=== PATIENT | female | born 1940 | race Caucasian/White ===

== ENCOUNTER 2018-12-03 23:24 | Inpatient (IN) | payer MEDICARE ==
--- NOTE | 2018-12-04 00:38 | ED ---
SOB HPI - General Chief Complaint: Shortness of Breath Stated Complaint: heart failure Time Seen by Provider: 12/03/18 23:28 Source: EMS Mode of arrival: EMS Limitations: no limitations - History of Present Illness Initial Comments: Patient is a 78-year-old female presenting for shortness of breath. Patient has a history of heart failure and states that for the last week or so, she has been having the shortness of breath. She denies any chest pain and states that she also have COPD. She denies any fevers or cough and does note that sure lower extremities have been swelling. She states that she is also had aortic valve repair a couple years ago but she was told that she would likely need a revision at some point because it was not operating as it should. She was seen at outside facility and transferred to our facility for further evaluation. - Related Data Home Medications Medication Instructions Recorded Confirmed Aspirin EC [Ecotrin Low Dose] 162 mg PO DAILY 12/03/18 12/03/18 Atorvastatin [Lipitor] 40 mg PO HS 12/03/18 12/03/18 Citalopram Hydrobromide [CeleXA] 40 mg PO DAILY 12/03/18 12/03/18 Ergocalciferol (Vitamin D2) 50,000 unit PO Q7D 12/03/18 12/03/18 [Vitamin D2] Ferrous Sulfate [Feosol] 325 mg PO DAILY 12/03/18 12/03/18 Furosemide [Lasix] 40 mg PO DAILY 12/03/18 12/03/18 Gabapentin [Neurontin] 300 mg PO TID 12/03/18 12/03/18 Multivitamins, Thera [Multivitamin 1 tab PO DAILY 12/03/18 12/03/18 (formulary)] Omeprazole [PriLOSEC] 20 mg PO DAILY 12/03/18 12/03/18 Ramipril [Altace] 5 mg PO DAILY 12/03/18 12/03/18 Ubidecarenone [Co Q-10] 100 mg PO DAILY 12/03/18 12/03/18 amLODIPine [Norvasc] 5 mg PO DAILY 12/03/18 12/03/18 Allergies Allergy/AdvReac Type Severity Reaction Status Date / Time No Known Allergies Allergy Verified 12/03/18 23:49 Review of Systems ROS Statement: Those systems with pertinent positive or pertinent negative responses have been documented in the HPI. Constitutional: Negative for chills, fatigue and fever. HENT: Negative for congestion. Respiratory: Negative for chest tightness, and wheezing. Negative for cough area positive for shortness of breath Cardiovascular: Negative for chest pain and palpitations. Gastrointestinal: Negative for abdominal pain. Negative for abdominal distention , diarrhea, nausea and vomiting. Genitourinary: Negative for dysuria. Musculoskeletal: Negative for back pain, neck pain and neck stiffness. Skin: Negative for color change. Neurological: Negative for dizziness, speech difficulty, weakness and light- headedness. Psychiatric/Behavioral: Negative for agitation and confusion. Negative for anxiety ROS Other: All systems not noted in ROS Statement are negative. Past Medical History Past Medical History: Coronary Artery Disease (CAD), Diabetes Mellitus, Hyperlipidemia, Hypertension, Renal Disease Additional Past Medical History / Comment(s): diabetic no meds for 6 years History of Any Multi-Drug Resistant Organisms: None Reported Past Surgical History: Bariatric Surgery, Coronary Bypass/CABG, Heart Catheterization With Stent Additional Past Surgical History / Comment(s): aortic valve replacement. Past Psychological History: No Psychological Hx Reported Smoking Status: Former smoker Past Alcohol Use History: None Reported Past Drug Use History: None Reported General Exam - General Exam Comments Initial Comments: Constitutional: Pt appears well-developed and well-nourished. No distress. Head: Normocephalic and atraumatic. Eyes: EOM are normal. Neck: Normal range of motion. Neck supple. Cardiovascular: Normal rate, regular rhythm, S1 normal, S2 normal and normal heart sounds. Exam reveals no gallop and no friction rub. No murmur heard. 1+ pitting edema bilaterally of lower extremities Pulmonary/Chest: Effort normal and breath sounds normal. No tachypnea and no bradypnea. No respiratory distress. Mild crackles at bilateral lung bases Abdominal: Soft. Bowel sounds are normal. Pt exhibits no shifting dullness, no distension, no pulsatile liver, no fluid wave, no abdominal bruit and no ascites. There is no rigidity, no rebound, no guarding, no tenderness at McBurney's point and negative Torrez's sign. There is no tenderness. Musculoskeletal: Normal range of motion. Neurological: Pt is alert and oriented to person, place, and time. No cranial nerve deficit. Skin: Skin is warm and dry. No rash noted. Pt is not diaphoretic. No erythema. No pallor. Psychiatric: Pt has a normal mood and affect. Pt behavior is normal. Thought content normal. Limitations: no limitations Course Vital Signs 12/03/18 12/04/18 23:28 00:01 Temperature 98.6 F Pulse Rate 98 92 Respiratory 18 16 Rate Blood Pressure 187/74 166/64 O2 Sat by Pulse 91 L 94 L Oximetry Medical Decision Making - Medical Decision Making Laboratory studies performed at outside facility showed WBC 8.8, RBC 3.6, hemoglobin 10.6, platelet 225, sodium 138, potassium 4.7, chloride 108, CO2 23, BUN 18, creatinine 1.4, GFR 37. From a cardiac standpoint, troponin was elevated 0.11 and BNP was elevated at 4169. D-dimer was also performed and noted to be elevated at 3.86. Patient was also given diuretics at the outside facility and therefore they were not given again here. Additionally, because a troponin was elevated at outside facility and d-dimer was also noted to be elevated, patient will be heparinized as pulmonary embolism cannot be completely excluded. However, it is still thought that this is a type II and STEMI secondary to supply demand mismatch. Additionally, no additional treatments and form of nitroglycerin or aspirin were given here as this was already given at the other facility.Explained all labs and diagnostic test results and that we will admit patient to hospital. Pt is agreeable to plan and case will be discussed with [facility] hospitalist in the morning. - EKG Data EKG Comments: EKG shows first-degree block, rate 91 bpm, IN interval 212, QRS 134, QTC 526. There are some mild ST depressions in aVL measuring approximately 1 mm Disposition Clinical Impression: NSTEMI (non-ST elevated myocardial infarction), Elevated brain natriuretic peptide (BNP) level Disposition: ADMITTED IP TO THIS HOSP Condition: Fair Referrals: Helen Roth DO [Primary Care Provider] - 1-2 days Decision to Admit Reason: Admit from EC Decision Date: 12/04/18 Decision Time: 00:45
[2018-12-04] MEDS ORDERED: NITROGLYCERIN SL TABS 0.4 MG TAB SUBLINGUAL PRN (00:47)
[2018-12-04 01:54] LABS: Mean Platelet Volume 8.6; Platelet Count 178 k/uL (150-450)
[2018-12-04] MEDS: HEPARIN SOD,PORK IN 0.45% NACL 25,000 UNIT in 0.45% NACL 1 250ML.BAG IV SCH (01:55)
[2018-12-04 06:19] LABS: Glucose,Whole Blood 274 mg/dL (75-99)
[2018-12-04 06:35] LABS: Basophils % (A) 0 %; Eosinophils % (A) 1 %; HCT 32.4 % (34.0-46.0); Hypochromasia Slight; Lymphocytes # (A) 0.4 k/uL (1.0-4.8); Lymphocytes % (A) 7 %; MCH 29.3 pg (25.0-35.0); MCHC 30.8 g/dL (31.0-37.0); MCV 95.2 fL (80.0-100.0); Mean Platelet Volume 8.5; Monocytes # (A) 0.2 k/uL (0-1.0); Monocytes % (A) 3 %; Neutrophils % (A) 89 %; Platelet Count 180 k/uL (150-450); RDW 13.6 % (11.5-15.5); WBC 5.6 k/uL (3.8-10.6)
[2018-12-04 07:14] LABS: Calcium 8.7 mg/dL (8.4-10.2)
[2018-12-04 07:22] LABS: Creatine Kinase MB 2.9 ng/mL (0.0-2.4)
[2018-12-04 07:29] LABS: Troponin I 0.235 ng/mL (0.000-0.034)
[2018-12-04] MEDS ORDERED: CARVEDILOL 6.25 MG TAB PO SCH ×2 (07:30→17:30)
[2018-12-04] MEDS ORDERED: FUROSEMIDE 10 MG/ML 4 ML VIAL IV SCH (09:00)
--- NOTE | 2018-12-04 09:13 | P.CRDCN ---
History of Present Illness Consult date: 12/04/18 Requesting physician: Tricia Segundo Consult reason: shortness of breath Chief complaint: Shortness of breath History of present illness: This is a 78-year-old female with history of hypertension, diabetes, hyperlipidemia, nicotine dependence, patient states she quit smoking in October of this year, history of aortic valve replacement with a bovine aortic valve approximately [address] [facility], she follows with Dr. Sarah cao as her primary doctor. Patient also states that she's had subclavian stenting in the past. She also states that she has a history of iron deficiency anemia for which she takes iron. She presents to my hospital with symptoms of a seven-day duration of progressively worsening shortness of breath, patient also states about that time she noticed lower extremity edema. She denies any chest discomfort. Laboratory data at [facility] been reviewed, d-dimer came back to be 3.8, white blood cell count 8.8, hemoglobin 10.6, platelet count 11.4 , sodium 138, potassium 4.7, BUN 18 and creatinine 1.4. Troponin 0.11, BNP level 4169. Patient was transferred to [facility] for further evaluation and treatment. Laboratory data on arrival here, white blood cell count 5.6, hemoglobin 10.0, platelet count 180. Sodium 139, potassium 5.0, BUN 21 and creatinine 1.3, glucose 273. Troponins here 0.31 and 0.23. Blood pressure on arrival here 187/74 with heart rate in the 90s, 91% on room air. EKG at [facility] showed a normal sinus rhythm with right bundle branch block pattern, nonspecific ST-T wave changes. EKG performed on arrival here showed normal sinus rhythm with first-degree AV block. Chest x-ray performed showed bilateral pleural effusions, she was given a 40 mg dose of IV Lasix. At the time of my examination this morning, patient still complains of feeling slightly short of breath, she states that she did put out a significant amount of urine and the swelling in her legs has improved a lot since her admission here. We will give the patient IV Lasix here and obtain an echocardiogram with Doppler study. Her Altace has currently been placed on hold because of abnormal renal function and potassium of 5.0. We'll resume her Lipitor, we will start the patient on a beta beatrice, to optimize blood pressure control. Past Medical History Past Medical History: Coronary Artery Disease (CAD), Diabetes Mellitus, Hyperlipidemia, Hypertension, Renal Disease Additional Past Medical History / Comment(s): diabetic, no meds for 6 MONTHS History of Any Multi-Drug Resistant Organisms: None Reported Past Surgical History: Bariatric Surgery, Coronary Bypass/CABG Additional Past Surgical History / Comment(s): aortic valve replacement LEFT CAROTID ENDARTECTOMY, BIARIATIC 2001 Past Anesthesia/Blood Transfusion Reactions: No Reported Reaction Past Psychological History: No Psychological Hx Reported Smoking Status: Former smoker Past Alcohol Use History: None Reported Past Drug Use History: None Reported - Past Family History Mother Family Medical History: Coronary Artery Disease (CAD) Father Family Medical History: Coronary Artery Disease (CAD) Additional Family Medical History / Comment(s): FATHER PASSED AT AGE 49 Medications and Allergies Home Medications Medication Instructions Recorded Confirmed Type Aspirin EC [Ecotrin Low Dose] 162 mg PO DAILY 12/03/18 12/03/18 History Atorvastatin [Lipitor] 40 mg PO HS 12/03/18 12/03/18 History Citalopram Hydrobromide [CeleXA] 40 mg PO DAILY 12/03/18 12/03/18 History Ergocalciferol (Vitamin D2) 50,000 unit PO Q7D 12/03/18 12/03/18 History [Vitamin D2] Ferrous Sulfate [Feosol] 325 mg PO DAILY 12/03/18 12/03/18 History Furosemide [Lasix] 40 mg PO DAILY 12/03/18 12/03/18 History Gabapentin [Neurontin] 300 mg PO TID 12/03/18 12/03/18 History Multivitamins, Thera [Multivitamin 1 tab PO DAILY 12/03/18 12/03/18 History (formulary)] Omeprazole [PriLOSEC] 20 mg PO DAILY 12/03/18 12/03/18 History Ramipril [Altace] 5 mg PO DAILY 12/03/18 12/03/18 History Ubidecarenone [Co Q-10] 100 mg PO DAILY 12/03/18 12/03/18 History amLODIPine [Norvasc] 5 mg PO DAILY 12/03/18 12/03/18 History Allergies Allergy/AdvReac Type Severity Reaction Status Date / Time No Known Allergies Allergy Verified 02/10/19 23:49 Physical Exam Vitals: Vital Signs Temp Pulse Pulse Resp BP BP Pulse Ox 12/04/18 04:00 97.4 F L 76 18 179/76 95 12/04/18 02:18 97.9 F 94 18 189/77 94 L 12/04/18 01:58 92 16 170/78 95 12/04/18 01:29 98.0 F 91 18 177/62 95 12/04/18 00:01 92 16 166/64 94 L 12/03/18 23:28 98.6 F 98 18 187/74 91 L Intake and Output 12/03/18 12/04/18 12/04/18 22:59 06:59 14:59 Output Total 200 Balance -200 Output: Urine 200 Other: # Voids 1 Weight 71.8 kg PHYSICAL EXAMINATION: GENERAL: 78-year-old female, pale in color, in no acute distress at the time of my examination HEENT: Head is atraumatic, normocephalic. Pupils equal, round. Sclera anicteric. Conjunctiva are clear. Mucous membranes of the mouth are moist. Neck is supple. There is no elevated jugular venous pressure. No carotid bruit is heard. HEART EXAMINATION: Heart S1 S2 1 systolic ejection murmur is heard. CHEST EXAMINATION: Lungs reveal diminished air entry to bilateral bases. ABDOMEN: Soft, nontender. Bowel sounds are heard. No organomegaly noted. EXTREMITIES: 2+ peripheral pulses with trace to 1+ evidence of peripheral edema.. NEUROLOGIC patient is awake, alert and oriented 3 . . Results 12/04/18 06:20 12/04/18 06:20 Cardiac Enzymes 12/03/18 12/04/18 Range/Units 23:59 06:20 CK-MB (CK-2) 2.9 H (0.0-2.4) ng/mL Troponin I 0.315 H* 0.235 H* (0.000-0.034) ng/mL Coagulation 12/03/18 12/04/18 Range/Units 23:55 07:31 APTT 24.3 36.1 H (22.0-30.0) sec CBC 12/04/18 12/04/18 Range/Units 01:27 06:20 WBC 5.6 (3.8-10.6) k/uL RBC 3.40 L (3.80-5.40) m/uL Hgb 10.0 L (11.4-16.0) gm/dL Hct 32.4 L (34.0-46.0) % Plt Count 178 180 (150-450) k/uL Comprehensive Metabolic Panel 12/04/18 Range/Units 06:20 Sodium 139 (137-145) mmol/L Potassium 5.0 (3.5-5.1) mmol/L Chloride 109 H (98-107) mmol/L Carbon Dioxide 26 (22-30) mmol/L BUN 21 H (7-17) mg/dL Creatinine 1.35 H (0.52-1.04) mg/dL Glucose 273 H (74-99) mg/dL Calcium 8.7 (8.4-10.2) mg/dL Current Medications Generic Name Dose Route Start Last Admin Trade Name Freq PRN Reason Stop Dose Admin Aspirin 325 mg 12/05/18 09:00 Aspirin PO DAILY DESI Heparin Sodium/Sodium Chloride 250 mls @ 8.74 mls/hr 12/04/18 01:00 12/04/18 01:55 25,000 unit/ Sodium Chloride IV 12 units/kg/hr .Q24H DESI 8.74 mls/hr Administration Protocol 12 UNITS/KG/HR Nitroglycerin 0.4 mg 12/04/18 00:47 Nitrostat SUBLINGUAL Q5M PRN Chest Pain Intake and Output 12/03/18 12/04/18 12/04/18 22:59 06:59 14:59 Output Total 200 Balance -200 Output: Urine 200 Other: # Voids 1 Weight 71.8 kg 12/04/18 06:20 12/04/18 06:20 EKG Interpretations (text) EKG shows a normal sinus rhythm with first-degree AV block, right bundle branch block pattern and nonspecific ST-T wave changes Assessment and Plan Plan: Assessment and plan #1 symptoms of one week duration of shortness of breath with lower extremity edema, evidence of congestive cardiac failure with elevated BNP level. LV function unknown. #2 history of aortic valve replacement 8 years ago with a bovine valve #3 diabetes #4 hyperlipidemia #5 accelerated hypertension #6 nicotine dependence, patient states she quit smoking in October #7 COPD #8 elevated d-dimer, rule out possibility of PE #9 anemia #10 abnormal troponins, 0.12, 0.31, 0.23, not suggestive of acute coronary syndrome, could be secondary to supply and demand mismatch. Patient denies having any chest discomfort. Plan We will start the patient on IV Lasix, we'll also start the patient on beta beatrice for more optimal blood pressure control. Her ALEIDA inhibitor is currently on hold, because of abnormal creatinine and borderline elevated potassium. Obtain echocardiogram with Doppler study. Obtain VQ scan to rule out the possibility of pulmonary embolism. Further recommendations to follow. DNP note has been reviewed, I agree with a documented findings and plan of care. Patient was seen and examined.
[2018-12-04] MEDS: ASPIRIN 81 MG PO SCH (09:15)
[2018-12-04] MEDS: ATORVASTATIN 40 MG TAB PO SCH (10:00)
[2018-12-04] MEDS: CARVEDILOL 3.125 MG TAB PO SCH ×2 (10:00→16:22)
--- NOTE | 2018-12-04 10:08 | P.HPIM ---
History of Present Illness This is a pleasant 78 years old female with past medical history of coronary artery disease, hypertension, hyperlipidemia, diabetes mellitus, status post bariatric surgery and aortic valve replacement. She presents because of dyspnea over 7 days which was getting worse not associated with cough or chest pain. He has bilateral leg swelling. Patient's vitals are reviewed. Her blood pressure on the high side 181/71. Saturating 96% on 2 L via NC. Patient is afebrile. CBC showing mild anemia 10. Creatinine is elevated at 1.35, with unknown baseline. Troponin elevated at 0.315 and 0.2-35. [place] [address]. Patient has elevated d- dimer 3.8 and cardiology or the recommended VQ scan and echocardiogram. As well as continue with Lasix and add beta beatrice. While Kamran inhibitor is on hold for elevated creatinine. Patient states that she doesn't have this pcp now. Patient was placed on heparin drip currently. Review of Systems CONSTITUTIONAL: No fever, no malaise, no fatigue. HEENT: No recent visual problems or hearing problems. Denied any sore throat. CARDIOVASCULAR: No orthopnea, PND, no palpitations, no syncope. PULMONARY: No shortness of breath, no cough, no hemoptysis. GASTROINTESTINAL: No diarrhea, no nausea, no vomiting, no abdominal pain. Normoactive bowel sounds. NEUROLOGICAL: No headaches, no weakness, no numbness. HEMATOLOGICAL: Denies any bleeding or petechiae. GENITOURINARY: Denies any burning micturition, frequency, or urgency. MUSCULOSKELETAL/RHEUMATOLOGICAL: Denies any joint pain, swelling, or any muscle pain. ENDOCRINE: Denies any polyuria or polydipsia. Past Medical History Past Medical History: Coronary Artery Disease (CAD), Diabetes Mellitus, Hyperlipidemia, Hypertension, Renal Disease Additional Past Medical History / Comment(s): diabetic, no meds for 6 MONTHS History of Any Multi-Drug Resistant Organisms: None Reported Past Surgical History: Bariatric Surgery, Coronary Bypass/CABG Additional Past Surgical History / Comment(s): aortic valve replacement LEFT CAROTID ENDARTECTOMY, BIARIATIC 2001 Past Anesthesia/Blood Transfusion Reactions: No Reported Reaction Past Psychological History: No Psychological Hx Reported Smoking Status: Former smoker Past Alcohol Use History: None Reported Past Drug Use History: None Reported - Past Family History Mother Family Medical History: Coronary Artery Disease (CAD) Father Family Medical History: Coronary Artery Disease (CAD) Additional Family Medical History / Comment(s): FATHER PASSED AT AGE 49 Medications and Allergies Home Medications Medication Instructions Recorded Confirmed Type Aspirin EC [Ecotrin Low Dose] 162 mg PO DAILY 12/03/18 12/03/18 History Atorvastatin [Lipitor] 40 mg PO HS 12/03/18 12/03/18 History Citalopram Hydrobromide [CeleXA] 40 mg PO DAILY 12/03/18 12/03/18 History Ergocalciferol (Vitamin D2) 50,000 unit PO Q7D 12/03/18 12/03/18 History [Vitamin D2] Ferrous Sulfate [Feosol] 325 mg PO DAILY 12/03/18 12/03/18 History Furosemide [Lasix] 40 mg PO DAILY 12/03/18 12/03/18 History Gabapentin [Neurontin] 300 mg PO TID 12/03/18 12/03/18 History Multivitamins, Thera [Multivitamin 1 tab PO DAILY 12/03/18 12/03/18 History (formulary)] Omeprazole [PriLOSEC] 20 mg PO DAILY 12/03/18 12/03/18 History Ramipril [Altace] 5 mg PO DAILY 12/03/18 12/03/18 History Ubidecarenone [Co Q-10] 100 mg PO DAILY 12/03/18 12/03/18 History amLODIPine [Norvasc] 5 mg PO DAILY 12/03/18 12/03/18 History Allergies Allergy/AdvReac Type Severity Reaction Status Date / Time No Known Allergies Allergy Verified 12/03/18 23:49 Physical Exam Vitals: Vital Signs Temp Pulse Pulse Resp BP BP Pulse Ox 12/04/18 08:00 69 16 181/71 96 12/04/18 04:00 97.4 F L 76 18 179/76 95 12/04/18 02:18 97.9 F 94 18 189/77 94 L 12/04/18 01:58 92 16 170/78 95 12/04/18 01:29 98.0 F 91 18 177/62 95 12/04/18 00:01 92 16 166/64 94 L 12/03/18 23:28 98.6 F 98 18 187/74 91 L Intake and Output 02/10/19 02/11/19 02/11/19 22:59 06:59 14:59 Output Total 200 Balance -200 Output: Urine 200 Other: # Voids 1 Weight 71.8 kg GENERAL: The patient is alert and oriented x3, not in any acute distress. Well developed, well nourished. HEENT: Pupils are round and equally reacting to light. EOMI. No scleral icterus. No conjunctival pallor. Normocephalic, atraumatic. No pharyngeal erythema. No thyromegaly. CARDIOVASCULAR: S1 and S2 present. No murmurs, rubs, or gallops. -PULMONARY: Chest is clear to auscultation, no wheezing . Bilateral inspiratory crackles. ABDOMEN: Soft, nontender, nondistended, normoactive bowel sounds. No palpable organomegaly. MUSCULOSKELETAL: No joint swelling or deformity. -EXTREMITIES: No cyanosis, clubbing, . Bilateral pitting leg edema NEUROLOGICAL: Gross neurological examination did not reveal any focal deficits. SKIN: No rashes. Results CBC & Chem 7: 12/04/18 06:20 12/04/18 06:20 Labs: Abnormal Lab Results - Last 24 Hours (Table) 12/03/18 12/04/18 12/04/18 Range/Units 23:59 06:17 06:20 RBC (3.80-5.40) m/uL Hgb (11.4-16.0) gm/dL Hct (34.0-46.0) % MCHC (31.0-37.0) g/dL Lymphocytes # (1.0-4.8) k/uL APTT (22.0-30.0) sec Chloride (98-107) mmol/L BUN (7-17) mg/dL Creatinine (0.52-1.04) mg/dL Glucose (74-99) mg/dL POC Glucose (mg/dL) 274 H (75-99) mg/dL CK-MB (CK-2) 2.9 H (0.0-2.4) ng/mL Troponin I 0.315 H* 0.235 H* (0.000-0.034) ng/mL 12/04/18 12/04/18 12/04/18 Range/Units 06:20 06:20 07:31 RBC 3.40 L (3.80-5.40) m/uL Hgb 10.0 L (11.4-16.0) gm/dL Hct 32.4 L (34.0-46.0) % MCHC 30.8 L (31.0-37.0) g/dL Lymphocytes # 0.4 L (1.0-4.8) k/uL APTT 36.1 H (22.0-30.0) sec Chloride 109 H (98-107) mmol/L BUN 21 H (7-17) mg/dL Creatinine 1.35 H (0.52-1.04) mg/dL Glucose 273 H (74-99) mg/dL POC Glucose (mg/dL) (75-99) mg/dL CK-MB (CK-2) (0.0-2.4) ng/mL Troponin I (0.000-0.034) ng/mL Thrombosis Risk Factor Assmnt - Choose All That Apply Each Risk Factor Represents 3 Points: Age 75 years or older Thrombosis Risk Factor Assessment Total Risk Factor Score: 3 Thrombosis Risk Factor Assessment Level: Moderate Risk Assessment and Plan Assessment: Possible acute congestive heart failure, unknown ejection fraction Elevated troponin. Possible non-STEMI. Elevated d-dimer. Bilateral leg swelling. History of diabetes mellitus Hyperlipidemia Essential hypertension History of aortic valve replacement with bovine valve History of COPD Plan: This is a pleasant 78 years old female who presents because of congestive heart failure and elevated d-dimer. Cartilage already evaluated the patient and recommended VQ scan. We will add Doppler of the lower extremity to rule out DVT. Chest x-ray for follow-up. Continue with diuretics. Labs and medication were reviewed.. Continue same treatment. Continue with symptomatic treatment. Resume home medication. Monitor lytes and vitals. DVT and GI prophylaxis. Further recommendations of the clinical course of the patient DVT prophylaxis: Subcutaneous heparin GI Prophylaxis: Pepcid PT/OT: Pending Prognosis is guarded
--- NOTE | 2018-12-04 10:57 | ECHOF ---
Referral Reason:chf MEASUREMENTS -------- HEIGHT: 160.0 cm WEIGHT: 71.7 kg BP: IVSd: 1.5 cm (0.6 - 1.1) LVIDd: 5.1 cm (3.9 - 5.3) LVPWd: 2.0 cm (0.6 - 1.1) IVSs: 1.8 cm LVIDs: 3.9 cm LVPWs: 2.2 cm LAESV Index (A-L): 53.86 ml/m Ao Diam: 3.2 cm (2.0 - 3.7) AV Cusp: 1.1 cm (1.5 - 2.6) LA Diam: 3.7 cm (2.7 - 3.8) MV EXCURSION: 11.800 mm (> 18.000) MV EF SLOPE: 26 mm/s (70 - 150) EPSS: 1.8 cm MV E Michael: 1.70 m/s MV DecT: 232 ms MV A Michael: 1.63 m/s MV E/A Ratio: 1.04 AV maxP.42 mmHg AV meanP.99 mmHg AR PHT: 171 ms RAP: 5.00 mmHg RVSP: 59.71 mmHg FINDINGS -------- Sinus rhythm. This was a technically good study. There is moderate concentric left ventricular hypertrophy. Overall left ventricular systolic functi on is moderately impaired with, an EF between 35 - 40 %. There is paradoxical/dysynergic septal mot ion consistent with post-operative status. Basal inferior LV wall motion is hypokinetic. Mid inf erior LV wall motion is hypokinetic. Mid inferoseptal LV wall motion is hypokinetic. The right ventricle is normal in size. LA is severely dilated >40 ml/m2 The right atrium is normal in size. There is [id number] aortic regurgitation. Peak/mean gradient across the Aortic Valve is 37.42 mmHg / 22.99mmHg. Abnormally functioning porcine bioprosthetic aortic valve. There is mild-moder ate regurgitation of the bioprosthetic aortic valve. The mitral valve leaflets are mildly thickened. Mild mitral annular calcification present. Mild-t o-moderate mitral regurgitation is present. Moderate tricuspid regurgitation present. There is moderate pulmonary hypertension. The right ruchi tricular systolic pressure, as measured by Doppler, is 59.71mmHg. Trace/mild (physiologic) pulmonic regurgitation. The aortic root size is normal. Normal inferior vena cava with normal inspiratory collapse consistent with estimated right atrial pre ssure of 5 mmHg. The pericardium is normal. CONCLUSIONS -------- 1. Sinus rhythm. 2. This was a technically good study. 3. There is moderate concentric left ventricular hypertrophy. 4. There is paradoxical/dysynergic septal motion consistent with post-operative status. 5. Basal inferior LV wall motion is hypokinetic. 6. Mid inferior LV wall motion is hypokinetic. 7. Mid inferoseptal LV wall motion is hypokinetic. 8. The right ventricle is normal in size. 9. LA is severely dilated >40 ml/m2 10. The right atrium is normal in size. 11. There is [id number] aortic regurgitation. 12. Peak/mean gradient across the Aortic Valve is 37.42mmHg / 22.99mmHg. 13. Abnormally functioning porcine bioprosthetic aortic valve. 14. The mitral valve leaflets are mildly thickened. 15. Mild mitral annular calcification present. 16. Tyxr-sy-[id number] mitral regurgitation is present. 17. Moderate tricuspid regurgitation present. 18. There is moderate pulmonary hypertension. 19. The right ventricular systolic pressure, as measured by Doppler, is 59.71mmHg. 20. Trace/mild (physiologic) pulmonic regurgitation. 21. The aortic root size is normal. 22. Normal inferior vena cava with normal inspiratory collapse consistent with estimated right atrial pressure of 5 mmHg. 23. The pericardium is normal. [employer]AG MIXER: Lucia Gunn RDCS
[2018-12-04 11:23] LABS: Glucose,Whole Blood 217 mg/dL (75-99)
--- NOTE | 2018-12-04 11:35 | US ---
EXAMINATION TYPE: US venous doppler duplex LE BI DATE OF EXAM: 12/04/2018 11:20 AM COMPARISON: CLINICAL HISTORY: Rule out DVT. Right vein stripping for CABG, no hx of blood clots, aspirin, no redn ess SIDE PERFORMED: Bilateral TECHNIQUE: The lower extremity deep venous system is examined utilizing real time linear array sonog steff with graded compression, doppler sonography and color-flow sonography. VESSELS IMAGED: External Iliac Vein (EIV) Common Femoral Vein Deep Femoral Vein Greater Saphenous Vein * Femoral Vein Popliteal Vein Small Saphenous Vein * Proximal Calf Veins (* superficial vessels) Right Leg: Negative for DVT Left Leg: Negative for DVT IMPRESSION: 1. Bilateral lower extremity ultrasound negative for deep venous thrombosis.
[2018-12-04] MEDS ORDERED: FUROSEMIDE 10 MG/ML 4 ML VIAL IV STA (12:05)
[2018-12-04] MEDS ORDERED: FUROSEMIDE 10 MG/ML 10 ML VIAL IVP STA (12:34)
[2018-12-04] MEDS ORDERED: FUROSEMIDE 10 MG/ML 10 ML VIAL IV STA (12:34)
[2018-12-04 12:50] LABS: HCT 36.1 % (34.0-46.0); HGB 11.3 gm/dL (11.4-16.0); Hypochromasia Slight; MCH 29.8 pg (25.0-35.0); MCHC 31.2 g/dL (31.0-37.0); MCV 95.6 fL (80.0-100.0); Mean Platelet Volume 7.9; Platelet Count 223 k/uL (150-450); RBC 3.78 m/uL (3.80-5.40); RDW 13.3 % (11.5-15.5); WBC 11.6 k/uL (3.8-10.6)
[2018-12-04] MEDS ORDERED: NITROGLYCERIN OINT 1 INCH/GM PACKET TOPICAL SCH (13:00)
[2018-12-04 13:06] LABS: ABG Base Excess -0.6 mmol/L; ABG HCO3 25 mmol/L (21-25); ABG Oxygen Saturation 97.7 % (94-97); ABG PCO2 45 mmHg (35-45); ABG PH 7.35 (7.35-7.45); ABG PO2 126 mmHg (83-108); ABG TCO2 26 mmol/L (19-24)
[2018-12-04 13:27] LABS: Creatine Kinase MB 3.1 ng/mL (0.0-2.4)
[2018-12-04 13:36] LABS: Troponin I 0.212 ng/mL (0.000-0.034)
--- NOTE | 2018-12-04 13:40 | XR ---
EXAMINATION TYPE: XR chest 1V DATE OF EXAM: 12/04/2018 COMPARISON: 12/03/2018 HISTORY: Shortness of breath FINDINGS: Noted is pulmonary venous congestion with scattered infiltrates. There is also cardiomegaly and small effusions. IMPRESSION: Findings compatible with congestive failure. Infiltrates of other etiology are not excluded. Clinical correlation and progress studies are recommended.
[2018-12-04 15:08] LABS: Glucose,Whole Blood 187 mg/dL (75-99)
[2018-12-04] MEDS ORDERED: amLODIPine 5 MG TAB PO SCH (16:45)
[2018-12-04] MEDS ORDERED: NITROGLYCERIN-D5W PMX 50 MG in DEXTROSE/WATER 1 250ML.BAG IV SCH (16:45)
[2018-12-04] MEDS ORDERED: NALOXONE 0.4 MG/ML 1 ML VIAL IV PRN (17:26)
[2018-12-04] MEDS ORDERED: CARVEDILOL 3.125 MG TAB PO ONE (17:30)
[2018-12-04 17:33] LABS: Glucose,Whole Blood 217 mg/dL (75-99)
--- NOTE | 2018-12-04 17:51 | P.CNPUL ---
History of Present Illness Consult date: 12/04/18 Requesting physician: Isidoro Vega Reason for consult: dyspnea, hypoxemia, abnormal CXR/CT Chief complaint: Acute exacerbation of chronic congestive heart failure History of present illness: This is 78-year-old white female patient with past medical history of retention , hyperlipidemia, diabetes, nicotine dependence, history of aortic valve replacement with a bioprosthetic valve 8 years ago at [facility], history of subclavian stenting in the past, chronic iron deficiency anemia. Patient presented to the hospital with symptoms of progressive shortness of breath over the course of 7 days prior to admission and worsening lower extremity edema. Patient denied any chest discomfort. She initially went to [facility], and she was transferred to this hospital. Her d-dimer came back elevated at 3.8 , white blood cell count was 8.8, hemoglobin is 10.6, platelet count was 114, BUN was 18, creatinine was 1.4. There was a mild troponin elevation, proBNP level 4169. She denied any fever or chills, denied any cough or congestion. At this hospital repeat blood work revealed troponins of 0.31, 0.23. Patient was hypertensive, with a blood pressure 187/74, EKG revealed normal sinus rhythm with a right bundle branch block, and nonspecific ST and T-wave abnormalities. Chest x-ray showed bilateral pleural effusions, and the patient was given IV Lasix. During the course of the day on 12/04/2018 patient started experiencing significantly worsening shortness of breath, rapid response team was called, patient was placed on BiPAP support with pressure of 10 and 5 and FiO2 100%. She was given additional 80 mg of IV Lasix, she was quiet diaphoretic, tachypneic, and hypotensive with a systolic blood pressure in the 200s. He was seen by cardiology at the bedside, and we evaluated the patient at the bedside, and patient was moved to the intensive care unit for closer monitoring. The echocardiogram showed paradoxical dyssynergy septal motion consistent with postoperative status, moderate concentric left ventricular hypertrophy, left ventricular systolic function was moderately impaired with an EF between 35-40%, there was rrfe-yk-jiettxxk aortic regurgitation, with a normally functioning bioprosthetic valve and there was no regurgitation of the bioprosthetic aortic valve noted. There was moderate pulmonary hypertension with right-sided pressures of 59 mmHg, in moderate tricuspid regurgitation. There was opmo-cu-xxwqncxo mitral regurgitation. Chest x-ray showed pulmonary edema, patient is seen again in follow-up in the intensive care unit, her FiO2 is currently down to 40%, she is awake and alert, a trial of nasal cannula was given, but patient was quite tachypneic, and had to be placed back on BiPAP support. She is starting to diurese, so far she had made over 500 mL of urine after the IV Lasix, she has been put on maintenance dose of IV Lasix of 40 mg every 12 hours, which will increase to every 8 hours. She remains quite hypertensive, she was started on oral Coreg, and we will initiate IV nitroglycerin drip. Review of Systems All systems: negative Constitutional: Denies chills, Denies fever Eyes: denies blurred vision, denies pain Ears, nose, mouth and throat: Denies headache, Denies sore throat Cardiovascular: Reports chest pain, Reports dyspnea on exertion, Reports high blood pressure, Reports leg edema, Denies shortness of breath Respiratory: Reports cough with sputum, Reports dyspnea, Denies cough Gastrointestinal: Denies abdominal pain, Denies diarrhea, Denies nausea, Denies vomiting Genitourinary: Denies dysuria, Denies hematuria Musculoskeletal: Denies myalgias Integumentary: Denies pruritus, Denies rash Neurological: Denies numbness, Denies weakness Psychiatric: Denies anxiety, Denies depression Endocrine: Denies fatigue, Denies weight change Past Medical History Past Medical History: Coronary Artery Disease (CAD), Diabetes Mellitus, Hyperlipidemia, Hypertension, Renal Disease Additional Past Medical History / Comment(s): diabetic, no meds for 6 MONTHS History of Any Multi-Drug Resistant Organisms: None Reported Past Surgical History: Bariatric Surgery, Coronary Bypass/CABG Additional Past Surgical History / Comment(s): aortic valve replacement LEFT CAROTID ENDARTECTOMY, BIARIATIC 2001 Past Anesthesia/Blood Transfusion Reactions: No Reported Reaction Past Psychological History: No Psychological Hx Reported Smoking Status: Former smoker Past Alcohol Use History: None Reported Past Drug Use History: None Reported - Past Family History Mother Family Medical History: Coronary Artery Disease (CAD) Father Family Medical History: Coronary Artery Disease (CAD) Additional Family Medical History / Comment(s): FATHER PASSED AT AGE 49 Medications and Allergies Home Medications Medication Instructions Recorded Confirmed Type Aspirin EC [Ecotrin Low Dose] 162 mg PO DAILY 12/03/18 12/03/18 History Atorvastatin [Lipitor] 40 mg PO HS 12/03/18 12/03/18 History Citalopram Hydrobromide [CeleXA] 40 mg PO DAILY 12/03/18 12/03/18 History Ergocalciferol (Vitamin D2) 50,000 unit PO Q7D 12/03/18 12/03/18 History [Vitamin D2] Ferrous Sulfate [Feosol] 325 mg PO DAILY 12/03/18 12/03/18 History Furosemide [Lasix] 40 mg PO DAILY 12/03/18 12/03/18 History Gabapentin [Neurontin] 300 mg PO TID 12/03/18 12/03/18 History Multivitamins, Thera [Multivitamin 1 tab PO DAILY 12/03/18 12/03/18 History (formulary)] Omeprazole [PriLOSEC] 20 mg PO DAILY 12/03/18 12/03/18 History Ramipril [Altace] 5 mg PO DAILY 12/03/18 12/03/18 History Ubidecarenone [Co Q-10] 100 mg PO DAILY 12/03/18 12/03/18 History amLODIPine [Norvasc] 5 mg PO DAILY 12/03/18 12/03/18 History Allergies Allergy/AdvReac Type Severity Reaction Status Date / Time No Known Allergies Allergy Verified 12/03/18 23:49 Physical Exam Vitals: Vital Signs Temp Pulse Pulse Resp BP BP Pulse Ox 12/04/18 17:15 77 24 201/79 94 L 12/04/18 17:00 74 16 196/83 93 L 12/04/18 16:45 73 27 H 190/80 95 12/04/18 16:30 77 27 H 196/83 94 L 12/04/18 16:15 79 12 187/82 95 12/04/18 16:10 82 26 H 186/82 94 L 12/04/18 16:00 97.6 F 77 19 184/80 95 12/04/18 15:40 74 25 H 187/82 94 L 12/04/18 15:20 78 26 H 180/80 96 12/04/18 11:45 89 16 166/108 99 12/04/18 11:09 16 12/04/18 08:00 69 16 181/71 96 12/04/18 04:00 97.4 F L 76 18 179/76 95 12/04/18 02:18 97.9 F 94 18 189/77 94 L 12/04/18 01:58 92 16 170/78 95 12/04/18 01:29 98.0 F 91 18 177/62 95 12/04/18 00:01 92 16 166/64 94 L 12/03/18 23:28 98.6 F 98 18 187/74 91 L Intake and Output 12/04/18 12/04/18 12/04/18 06:59 14:59 22:59 Intake Total 300 40 Output Total 200 610 Balance -200 300 -570 Intake: IV 40 0.9 normal saline 40 Intake, IV Titration 60 Amount Heparin Sod,Pork in 0.45% 60 NaCl 25,000 unit In 0.45 % NaCl 1 250ml.bag @ 12 UNITS/KG/HR 8.74 mls/hr IV .Q24H DESI Rx#: [id number] Oral 240 Output: Urine 200 610 Other: # Voids 1 3 Weight 71.8 kg GENERAL EXAM: Alert, pleasant, 78-year-old white female on BiPAP support currently at pressures of 10 and 5 and FiO2 40% comfortable in no apparent distress. HEAD: Normocephalic/atraumatic. EYES: Normal reaction of pupils, equal size. Conjunctiva pink, sclera white. NOSE: Clear with pink turbinates. THROAT: No erythema or exudates. NECK: No masses, no JVD, no thyroid enlargement, no adenopathy. CHEST: No chest wall deformity. Symmetrical expansion. LUNGS: Equal air entry with diffuse crackles CVS: Regular rate and rhythm, normal S1 and S2, no gallops, no murmurs, no rubs ABDOMEN: Soft, nontender. No hepatosplenomegaly, normal bowel sounds, no guarding or rigidity. EXTREMITIES: No clubbing, 1+ edema, no cyanosis, 2+ pulses and upper and lower extremities. MUSCULOSKELETAL: Muscle strength and tone normal. SPINE: No scoliosis or deformity SKIN: No rashes CENTRAL NERVOUS SYSTEM: Alert and oriented -3. No focal deficits, tone is normal in all 4 extremities. PSYCHIATRIC: Alert and oriented -3. Appropriate affect. Intact judgment and insight. Results - Laboratory Findings CBC and BMP: 12/04/18 12:24 12/04/18 06:20 ABG ABG pH 7.35 (7.35-7.45) 12/04/18 13:03 ABG pCO2 45 mmHg (35-45) 12/04/18 13:03 ABG pO2 126 mmHg (83-108) H 12/04/18 13:03 ABG O2 Saturation 97.7 % (94-97) H 12/04/18 13:03 Abnormal lab findings: Abnormal Labs 12/03/18 12/04/18 12/04/18 23:59 06:17 06:20 WBC RBC Hgb Hct MCHC Lymphocytes # APTT ABG pO2 ABG Total CO2 ABG O2 Saturation Chloride BUN Creatinine Glucose POC Glucose (mg/dL) 274 H CK-MB (CK-2) 2.9 H Troponin I 0.315 H* 0.235 H* 12/04/18 12/04/18 12/04/18 06:20 06:20 07:31 WBC RBC 3.40 L Hgb 10.0 L Hct 32.4 L MCHC 30.8 L Lymphocytes # 0.4 L APTT 36.1 H ABG pO2 ABG Total CO2 ABG O2 Saturation Chloride 109 H BUN 21 H Creatinine 1.35 H Glucose 273 H POC Glucose (mg/dL) CK-MB (CK-2) Troponin I 12/04/18 12/04/18 12/04/18 11:20 12:24 12:24 WBC 11.6 H RBC 3.78 L Hgb 11.3 L Hct MCHC Lymphocytes # APTT ABG pO2 ABG Total CO2 ABG O2 Saturation Chloride BUN Creatinine Glucose POC Glucose (mg/dL) 217 H CK-MB (CK-2) 3.1 H Troponin I 0.212 H* 12/04/18 12/04/18 13:03 14:57 WBC RBC Hgb Hct MCHC Lymphocytes # APTT ABG pO2 126 H ABG Total CO2 26 H ABG O2 Saturation 97.7 H Chloride BUN Creatinine Glucose POC Glucose (mg/dL) 187 H CK-MB (CK-2) Troponin I - Diagnostic Findings Chest x-ray: report reviewed, image reviewed Additional studies: Echocardiogram results have been reviewed, EKG has been reviewed, and his Doppler ultrasound negative Assessment and Plan Plan: Assessment: #1. Acute hypoxemic respiratory failure related to acute exacerbation of congestive heart failure with systolic dysfunction #2. Hypertensive emergency #3. Acute kidney injury #4. Valvular heart disease, status post aortic valve replacement with a bioprosthetic valve. Echocardiogram revealed normally functioning bioprosthetic valve and there was no regurgitation of the bioprosthetic aortic valve noted. #5. Moderate pulmonary hypertension #6. Elevated troponins suggesting non-ST elevated ND #7. Hypertension, hyperlipidemia, diabetes mellitus type 2 #8. Former nicotine dependence, quit smoking in October 2018 #9. Elevated d-dimer, ultrasound Dopplers of the lower extremities are negative for DVT #10. Chronic iron deficiency anemia Plan: Continue BiPAP support, patient did not tolerate a trial of nasal cannula, still quite tachypneic, and labored, continue IV diuretics, we'll increase the dose to 40 mg every 8 hours, will start nitroglycerin drip for blood pressure control, start Norvasc, increased the dose of Coreg. Repeat chest x-ray, repeat blood work in the morning. He has been started on IV heparin, GI prophylaxis, repeat chest x-ray in the morning, monitor electrolytes and renal profile. We will hold the VQ scan, elevation of d-dimer is nonspecific. I performed a history & physical examination of the patient and discussed their management with my nurse practitioner, Arabella Strange. I reviewed the nurse practitioner's note and agree with the documented findings and plan of care. Lung sounds are positive for diffuse crackles. The findings and the impression was discussed with the patient. I attest to the documentation by the nurse practitioner. Time with Patient: Greater than 30
[2018-12-04] MEDS ORDERED: hydrALAZINE HCL 25 MG TAB PO STA (18:46)
[2018-12-04 19:47] LABS: Appearance,Urine Clear (Clear); Bacteria,Urine Rare /hpf; Bilirubin,Urine Negative (Negative); Blood,Urine Moderate (Negative); Color,Urine Light Yellow; Glucose,Urine (UA) Negative (Negative); Ketones,Urine Negative (Negative); Leukocyte Esterase,Urine Small (Negative); Mucus,Urine Rare /hpf; Nitrite,Urine Negative (Negative); Protein,Urine 1+ (Negative); RBC,Urine 103 /hpf (0-5); Specific Gravity,Urine 1.006 (1.001-1.035); Squamous Epithelial Cell,Urine <1 /hpf (0-4); Urobilinogen,Urine <2.0 mg/dL (<2.0)
[2018-12-04 20:41] LABS: Glucose,Whole Blood 218 mg/dL (75-99)
[2018-12-04] MEDS ORDERED: FAMOTIDINE 20 MG/2 ML VIAL IV SCH (21:00)
[2018-12-04] MEDS: INSULIN ASPART (NovoLOG) 100 UNIT/ML VIAL SQ SCH (21:59)
[2018-12-04] MEDS ORDERED: hydrALAZINE HCL 25 MG TAB PO SCH (22:00)
[2018-12-04] MEDS: HEPARIN SODIUM,PORCINE 5,000 UNIT/ML 1 ML VIAL IV PRN (22:20)
[2018-12-05] MEDS: FUROSEMIDE 10 MG/ML 4 ML VIAL IV SCH ×3 (00:50→16:41)
[2018-12-05] MEDS: HEPARIN SOD,PORK IN 0.45% NACL 25,000 UNIT in 0.45% NACL 1 250ML.BAG IV SCH (00:50)
[2018-12-05 05:08] LABS: Basophils % (A) 0 %; Eosinophils # (A) 0.1 k/uL (0-0.7); Eosinophils % (A) 1 %; HCT 29.8 % (34.0-46.0); HGB 9.5 gm/dL (11.4-16.0); Lymphocytes # (A) 1.2 k/uL (1.0-4.8); Lymphocytes % (A) 13 %; MCH 30.2 pg (25.0-35.0); MCV 94.5 fL (80.0-100.0); Mean Platelet Volume 8.6; Monocytes # (A) 0.5 k/uL (0-1.0); Monocytes % (A) 6 %; Neutrophils # (A) 7.2 k/uL (1.3-7.7); Neutrophils % (A) 79 %; Platelet Count 169 k/uL (150-450); RBC 3.16 m/uL (3.80-5.40); RDW 13.5 % (11.5-15.5); WBC 9.1 k/uL (3.8-10.6)
[2018-12-05 06:08] LABS: Calcium 8.3 mg/dL (8.4-10.2); Magnesium 1.5 mg/dL (1.6-2.3); Phosphorus 4.6 mg/dL (2.5-4.5); Potassium 4.3 mmol/L (3.5-5.1)
[2018-12-05] MEDS ORDERED: Magnesium Replacement Protocol 1 EACH MISC MISCELLANE PRN (06:10)
[2018-12-05] MEDS: MAGNESIUM SULFATE-D5W PMX 1 GM in DEXTROSE/WATER 1 100ML.BAG IVPB SCH ×2 (06:42→08:23)
[2018-12-05] MEDS: CARVEDILOL 6.25 MG TAB PO SCH ×2 (06:42→17:16)
[2018-12-05] MEDS: HEPARIN SODIUM,PORCINE 5,000 UNIT/ML 1 ML VIAL IV PRN (06:46)
[2018-12-05 06:59] LABS: Glucose,Whole Blood 165 mg/dL (75-99)
[2018-12-05] MEDS: INSULIN ASPART (NovoLOG) 100 UNIT/ML VIAL SQ SCH ×4 (07:12→22:17)
--- NOTE | 2018-12-05 08:02 | XR ---
EXAMINATION TYPE: XR chest 1V DATE OF EXAM: 12/05/2018 CLINICAL HISTORY: Difficulty breathing progress study. TECHNIQUE: Single AP portable semiupright view of the chest is obtained. COMPARISON: Chest x-ray from one day earlier. FINDINGS: Post CABG changes with mediastinal clips and sternal wires is redemonstrated. Overlying ep icardial pacer wires are seen. There is persistent cardiomegaly with bibasilar opacity felt to reflec t small bilateral pleural effusions and central vascular congestion. Osseous structures are demineral ized. IMPRESSION: Findings consistent with CHF exacerbation redemonstrated as there is cardiomegaly with sm all bilateral pleural effusions and central vascular congestion all again seen. Central vascular mahad estion perhaps slightly improved from prior. Associated bibasilar compressive atelectasis redemonstra salvatore.
[2018-12-05] MEDS: hydrALAZINE HCL 50 MG TAB PO SCH ×3 (08:23→21:31)
[2018-12-05] MEDS: ASPIRIN 81 MG PO SCH (08:24)
[2018-12-05] MEDS: ATORVASTATIN 40 MG TAB PO SCH (08:24)
--- NOTE | 2018-12-05 08:39 | PN ---
PROGRESS NOTE Mrs. Chowdary is a 78-year-old female who presented with symptoms of progressive dyspnea and evidence of congestive heart failure. She deteriorated in the afternoon, requiring BiPAP and transferred to the ICU. She continues to be on the BiPAP today, but feels much better. She has diuresed well. She is denying any chest pain or palpitation. She denies any nausea. She had an echocardiogram performed yesterday that revealed a bioprosthetic aortic valve with a mild to moderate mitral, moderate tricuspid and moderate aortic regurgitation with ejection fraction of 35% to 40% There was a mean gradient of 23 mmHg. She continues to be at this time on IV nitroglycerin, aspirin 81 mg daily, amlodipine 5 mg daily, Lipitor 40 mg daily, Coreg 6.25 mg twice a day, Lasix 40 mg IV q.8 hours, hydralazine 25 mg 3 times a day. PHYSICAL EXAMINATION: Blood pressure running in the 130s to 170s with a heart rate in the 60s. Lungs with few crackles at the bases. HEART: Regular rate and rhythm, S1, S2. No S3 with systolic murmur heard at the base, ejection type with a diastolic murmur. ABDOMEN: Soft, nontender. EXTREMITIES: With 1+ edema. LAB DATA: Revealed a D-dimer of 3.1, hemoglobin of 9.5, BUN and creatinine 26 and 1.51. Duplex scan of the lower extremities showed no evidence of deep venous thrombosis. IMPRESSION: 1. Acute pulmonary edema with evidence of cardiomyopathy and aortic regurgitation. 2. Hypertension. 3. Status post aortic valve replacement. 4. Renal failure. 5. Hyperlipidemia. 6. Prior history of smoking. 7. Elevated D-dimer. RECOMMENDATION: From the cardiac standpoint, I will increase the dose of the hydralazine and stop the amlodipine because of the cardiomyopathy. Will switch her to nitro paste, stop the IV nitroglycerin. Follow her renal function closely. I will continue the IV heparin for now. Hopefully, we can do a ventilation perfusion scan. Will continue the rest of her medical regimen and depending on her progress, further recommendation will be made. I will try to obtain the report from her office spec to see what her valve status was at that time and see if there is progression. It is possible that some of her heart failure is related to the aortic regurgitation and she may require down the road a surgical intervention. MMODL / IJN: [id number] /
[2018-12-05] MEDS: NITROGLYCERIN OINT 1 INCH/GM PACKET TOPICAL SCH ×2 (08:40→16:41)
[2018-12-05] MEDS ORDERED: FAMOTIDINE 20 MG/2 ML VIAL IV SCH (09:00)
[2018-12-05] MEDS ORDERED: ASPIRIN 325 MG TAB PO SCH (09:00)
--- NOTE | 2018-12-05 11:19 | P.PN ---
Subjective Progress Note Date: 12/05/18 Principal diagnosis: Acute hypoxic respiratory failure secondary to systolic congestive heart failure This is 78-year-old white female patient with past medical history of retention , hyperlipidemia, diabetes, nicotine dependence, history of aortic valve replacement with a bioprosthetic valve 8 years ago at [facility], history of subclavian stenting in the past, chronic iron deficiency anemia. Patient presented to the hospital with symptoms of progressive shortness of breath over the course of 7 days prior to admission and worsening lower extremity edema. Patient denied any chest discomfort. She initially went to [facility], and she was transferred to this hospital. Her d-dimer came back elevated at 3.8 , white blood cell count was 8.8, hemoglobin is 10.6, platelet count was 114, BUN was 18, creatinine was 1.4. There was a mild troponin elevation, proBNP level 4169. She denied any fever or chills, denied any cough or congestion. At this hospital repeat blood work revealed troponins of 0.31, 0.23. Patient was hypertensive, with a blood pressure 187/74, EKG revealed normal sinus rhythm with a right bundle branch block, and nonspecific ST and T-wave abnormalities. Chest x-ray showed bilateral pleural effusions, and the patient was given IV Lasix. During the course of the day on 12/04/2018 patient started experiencing significantly worsening shortness of breath, rapid response team was called, patient was placed on BiPAP support with pressure of 10 and 5 and FiO2 100%. She was given additional 80 mg of IV Lasix, she was quiet diaphoretic, tachypneic, and hypotensive with a systolic blood pressure in the 200s. He was seen by cardiology at the bedside, and we evaluated the patient at the bedside, and patient was moved to the intensive care unit for closer monitoring. The echocardiogram showed paradoxical dyssynergy septal motion consistent with postoperative status, moderate concentric left ventricular hypertrophy, left ventricular systolic function was moderately impaired with an EF between 35-40%, there was [id number] aortic regurgitation, with a normally functioning bioprosthetic valve and there was no regurgitation of the bioprosthetic aortic valve noted. There was moderate pulmonary hypertension with right-sided pressures of 59 mmHg, in moderate tricuspid regurgitation. There was [id number] mitral regurgitation. Chest x-ray showed pulmonary edema, patient is seen again in follow-up in the intensive care unit, her FiO2 is currently down to 40%, she is awake and alert, a trial of nasal cannula was given, but patient was quite tachypneic, and had to be placed back on BiPAP support. She is starting to diurese, so far she had made over 500 mL of urine after the IV Lasix, she has been put on maintenance dose of IV Lasix of 40 mg every 12 hours, which will increase to every 8 hours. She remains quite hypertensive, she was started on oral Coreg, and we will initiate IV nitroglycerin drip. Patient was reevaluated today on 12/05/2018, she remains in the ICU, remains on BiPAP, however I switch her today from BiPAP to a nasal cannula. Patient remains on diuretics, and she responded well to Lasix 40 mg IV push every 8 hours. Remains on nitroglycerin drip, and her blood pressure medications are being addressed by cardiology on the case. She is on heparin, there is no slight index of suspicion for pulmonary embolism, no need for VQ scan. Heparin was started mostly because of her acute cardiac presentation. And if not needed , can be discontinued by cardiology. Her echocardiogram is quite abnormal and showed significant abnormalities including elevated dysfunction, aortic regurgitation, and mitral regurgitation. There is also evidence of pulmonary hypertension related to her valvular heart disease. Again my index of suspicion for pulmonary embolism is extremely low and a VQ scan will be worthless and of no value anyway. Overall the patient is feeling better, breathing a lot easier, and I proceeded to switch her from BiPAP to a nasal cannula, likely will be tolerated well. Creatinine was noted to be a bit worse today, hence I would likely cut down on the Lasix from 40 mg every 8 hours to 40 mg every 12 hours. Chest x-ray this morning continues to show some evidence of central vascular congestion and interstitial edema. Hydralazine was increased by cardiology, and amlodipine will be discontinued. She will be switched from IV nitroglycerin to Nitropaste. 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 Vega. Considering possible surgical intervention on her aortic valve. Objective - Vital Signs Vital signs: Vital Signs Temp 98.6 F 12/05/18 08:00 Pulse 62 12/05/18 10:00 Resp 17 12/05/18 10:00 BP 109/61 12/05/18 10:00 Pulse Ox 93 L 12/05/18 10:00 Intake & Output 12/04/18 12/05/18 12/05/18 18:59 06:59 18:59 Intake Total 501.679 384.787 40 Output Total 670 1580 730 Balance -168.321 -1195.213 -690 Weight 66.2 kg Intake: IV 60 220 40 0.9 normal saline 60 220 40 Intake, IV Titration 201.679 164.787 Amount Heparin Sod,Pork in 0.45% 198.529 164.787 NaCl 25,000 unit In 0.45 % NaCl 1 250ml.bag @ 12 UNITS/KG/HR 8.74 mls/hr IV .Q24H DESI Rx#: [id number] Nitroglycerin-D5w Pmx 50 3.15 mg In Dextrose/Water 1 250ml.bag @ 5 MCG/MIN 1.5 mls/hr IV .Q24H DESI Rx#: [id number] Oral 240 Output: Urine 670 1580 730 Other: Voiding Method Indwelling Catheter Indwelling Catheter Indwelling Catheter # Voids 3 - Exam Physical Exam: Revealed a 78-year-old female on BiPAP, in no distress. Head: Atraumatic normocephalic. HEENT:[Neck is supple.] [No neck masses.] [No thyromegaly.] [No JVD.] PERRLA, EOMI, no icterus. Moist mucous membranes noted. Chest: Minimal crackles at the bases, no rhonchi no wheezes. Symmetrical chest expansion. No chest wall tenderness.] Cardiac Exam: [Normal S1 and S2, 3/6 systolic murmur thought the precordium. Best heard over the aortic area.. 2/6 diastolic murmur is also heard at the left lower sternal border] Abdomen: [Soft, nontender, no megaly, no rebound, no guarding, normal bowel sounds.] Extremities: [No clubbing, no edema, no cyanosis.] Neurological Exam: [No focal neurologic deficit.] Psychiatric: Normal mood affect and mental status examination. Skin: No rashes. : No lymphadenopathy. Lymphatics - Labs CBC & Chem 7: 12/05/18 04:26 12/05/18 04:26 Labs: Abnormal Lab Results - Last 24 Hours (Table) 12/04/18 12/04/18 12/04/18 Range/Units 11:20 12:24 12:24 WBC (3.8-10.6) k/uL RBC (3.80-5.40) m/uL Hgb (11.4-16.0) gm/dL Hct (34.0-46.0) % APTT (22.0-30.0) sec D-Dimer (<0.60) mg/L FEU ABG pO2 (83-108) mmHg ABG Total CO2 (19-24) mmol/L ABG O2 Saturation (94-97) % BUN (7-17) mg/dL Creatinine (0.52-1.04) mg/dL Glucose (74-99) mg/dL POC Glucose (mg/dL) 217 H (75-99) mg/dL Hemoglobin A1c 7.0 H (4.0-6.0) % Calcium (8.4-10.2) mg/dL Phosphorus (2.5-4.5) mg/dL Magnesium (1.6-2.3) mg/dL CK-MB (CK-2) 3.1 H (0.0-2.4) ng/mL Troponin I 0.212 H* (0.000-0.034) ng/mL HDL Cholesterol (40-60) mg/dL Urine Protein (Negative) Urine Blood (Negative) Ur Leukocyte Esterase (Negative) Urine RBC (0-5) /hpf Urine WBC (0-5) /hpf Urine Bacteria (None) /hpf Urine Mucus (None) /hpf 12/04/18 12/04/18 12/04/18 Range/Units 12:24 13:03 14:57 WBC 11.6 H (3.8-10.6) k/uL RBC 3.78 L (3.80-5.40) m/uL Hgb 11.3 L (11.4-16.0) gm/dL Hct (34.0-46.0) % APTT (22.0-30.0) sec D-Dimer (<0.60) mg/L FEU ABG pO2 126 H (83-108) mmHg ABG Total CO2 26 H (19-24) mmol/L ABG O2 Saturation 97.7 H (94-97) % BUN (7-17) mg/dL Creatinine (0.52-1.04) mg/dL Glucose (74-99) mg/dL POC Glucose (mg/dL) 187 H (75-99) mg/dL Hemoglobin A1c (4.0-6.0) % Calcium (8.4-10.2) mg/dL Phosphorus (2.5-4.5) mg/dL Magnesium (1.6-2.3) mg/dL CK-MB (CK-2) (0.0-2.4) ng/mL Troponin I (0.000-0.034) ng/mL HDL Cholesterol (40-60) mg/dL Urine Protein (Negative) Urine Blood (Negative) Ur Leukocyte Esterase (Negative) Urine RBC (0-5) /hpf Urine WBC (0-5) /hpf Urine Bacteria (None) /hpf Urine Mucus (None) /hpf 12/04/18 12/04/18 12/04/18 Range/Units 17:22 17:55 18:37 WBC (3.8-10.6) k/uL RBC (3.80-5.40) m/uL Hgb (11.4-16.0) gm/dL Hct (34.0-46.0) % APTT 40.7 H (22.0-30.0) sec D-Dimer (<0.60) mg/L FEU ABG pO2 (83-108) mmHg ABG Total CO2 (19-24) mmol/L ABG O2 Saturation (94-97) % BUN (7-17) mg/dL Creatinine (0.52-1.04) mg/dL Glucose (74-99) mg/dL POC Glucose (mg/dL) 217 H (75-99) mg/dL Hemoglobin A1c (4.0-6.0) % Calcium (8.4-10.2) mg/dL Phosphorus (2.5-4.5) mg/dL Magnesium (1.6-2.3) mg/dL CK-MB (CK-2) (0.0-2.4) ng/mL Troponin I (0.000-0.034) ng/mL HDL Cholesterol (40-60) mg/dL Urine Protein 1+ H (Negative) Urine Blood Moderate H (Negative) Ur Leukocyte Esterase Small H (Negative) Urine RBC 103 H (0-5) /hpf Urine WBC 7 H (0-5) /hpf Urine Bacteria Rare H (None) /hpf Urine Mucus Rare H (None) /hpf 12/04/18 12/05/18 12/05/18 Range/Units 20:30 04:26 04:26 WBC (3.8-10.6) k/uL RBC 3.16 L (3.80-5.40) m/uL Hgb 9.5 L D (11.4-16.0) gm/dL Hct 29.8 L (34.0-46.0) % APTT (22.0-30.0) sec D-Dimer (<0.60) mg/L FEU ABG pO2 (83-108) mmHg ABG Total CO2 (19-24) mmol/L ABG O2 Saturation (94-97) % BUN 26 H (7-17) mg/dL Creatinine 1.51 H (0.52-1.04) mg/dL Glucose 148 H (74-99) mg/dL POC Glucose (mg/dL) 218 H (75-99) mg/dL Hemoglobin A1c (4.0-6.0) % Calcium 8.3 L (8.4-10.2) mg/dL Phosphorus 4.6 H (2.5-4.5) mg/dL Magnesium 1.5 L (1.6-2.3) mg/dL CK-MB (CK-2) (0.0-2.4) ng/mL Troponin I (0.000-0.034) ng/mL HDL Cholesterol 63 H (40-60) mg/dL Urine Protein (Negative) Urine Blood (Negative) Ur Leukocyte Esterase (Negative) Urine RBC (0-5) /hpf Urine WBC (0-5) /hpf Urine Bacteria (None) /hpf Urine Mucus (None) /hpf 12/05/18 12/05/18 12/05/18 Range/Units 04:26 04:26 06:47 WBC (3.8-10.6) k/uL RBC (3.80-5.40) m/uL Hgb (11.4-16.0) gm/dL Hct (34.0-46.0) % APTT 44.0 H (22.0-30.0) sec D-Dimer 3.10 H (<0.60) mg/L FEU ABG pO2 (83-108) mmHg ABG Total CO2 (19-24) mmol/L ABG O2 Saturation (94-97) % BUN (7-17) mg/dL Creatinine (0.52-1.04) mg/dL Glucose (74-99) mg/dL POC Glucose (mg/dL) 165 H (75-99) mg/dL Hemoglobin A1c (4.0-6.0) % Calcium (8.4-10.2) mg/dL Phosphorus (2.5-4.5) mg/dL Magnesium (1.6-2.3) mg/dL CK-MB (CK-2) (0.0-2.4) ng/mL Troponin I (0.000-0.034) ng/mL HDL Cholesterol (40-60) mg/dL Urine Protein (Negative) Urine Blood (Negative) Ur Leukocyte Esterase (Negative) Urine RBC (0-5) /hpf Urine WBC (0-5) /hpf Urine Bacteria (None) /hpf Urine Mucus (None) /hpf Microbiology - Last 24 Hours (Table) 12/04/18 17:55 Urine Culture - Preliminary Urine,Voided Assessment and Plan Assessment: #1. Acute hypoxemic respiratory failure related to acute exacerbation of congestive heart failure with systolic dysfunction and valvular heart disease including aortic regurgitation, and mitral regurgitation. #2. Hypertensive emergency improved, blood pressure medications are being addressed today. #3. Acute kidney injury, possible cardiorenal syndrome. We'll cut down the Lasix to 40 mg every 12 hours instead of 40 daily #4. Valvular heart disease, status post aortic valve replacement with a bioprosthetic valve. Echocardiogram results were reviewed. #5. Moderate pulmonary hypertension #6. Elevated troponins suggesting non-ST elevated NC #7. Hypertension, hyperlipidemia, diabetes mellitus type 2 #8. Former nicotine dependence, quit smoking in October 2018 #9. Elevated d-dimer, ultrasound Dopplers of the lower extremities are negative for DVT, my index of suspicion for pulmonary embolism is extremely low , no need for a VQ scan. Not to mention the VQ scan would be of no value considering the findings noted on her chest x-ray. #10. Chronic iron deficiency anemia Plan: Continue present treatment plan including diuretics, nitroglycerin, blood pressure medications including Coreg and hydralazine. Continue heparin unless felt to be non-indicated by cardiology. We will switch her BiPAP to nasal cannula, and we'll continue to monitor the patient in the ICU. Clearly she has multiple complex issues as noted above, and not quite ready to be transferred out of the ICU yet today. Time with Patient: Less than 30
[2018-12-05] MEDS: GABAPENTIN 300 MG CAP PO SCH ×3 (12:07→22:17)
[2018-12-05 12:08] LABS: Glucose,Whole Blood 173 mg/dL (75-99)
[2018-12-05 17:10] LABS: Glucose,Whole Blood 131 mg/dL (75-99)
--- NOTE | 2018-12-05 18:28 | P.PN ---
Subjective This is a pleasant 78 years old female with past medical history of coronary artery disease, hypertension, hyperlipidemia, diabetes mellitus, status post bariatric surgery and aortic valve replacement. She presents because of dyspnea over 7 days which was getting worse not associated with cough or chest pain. He has bilateral leg swelling. Patient's vitals are reviewed. Her blood pressure on the high side 181/71. Saturating 96% on 2 L via NC. Patient is afebrile. CBC showing mild anemia 10. Creatinine is elevated at 1.35, with unknown baseline. Troponin elevated at 0.315 and 0.2-35. [place] [address]. Patient has elevated d- dimer 3.8 and cardiology or the recommended VQ scan and echocardiogram. As well as continue with Lasix and add beta beatrice. While Kamran inhibitor is on hold for elevated creatinine. Patient states that she doesn't have this pcp now. Patient was placed on heparin drip currently. 12/05/2018 Patient is seen today in the ICU. She was sitting in the chair and feels better. Her dyspnea is improving with no chest pain. Her blood pressure is controlled and she is of nitroglycerin drip. Vitas looks stable and she is saturating 98% on 5 L oxygen via nasal cannula. Leukocytosis resolved on WBC 9.1K. Creatinine is slightly elevated to 1.5, sugar is controlled. Patient was started on ceftriaxone yesterday for possible urinary tract infection, leukocytosis resolved today however urine culture still pending. Patient with no fever. Repeat chest x-ray from today showing CHF with bilateral pleural effusion and congestion. She still also on heparin drip. CONSTITUTIONAL: No fever, no malaise, no fatigue. HEENT: No recent visual problems or hearing problems. Denied any sore throat. CARDIOVASCULAR: no syncope. PULMONARY: no hemoptysis. GASTROINTESTINAL: No diarrhea, no nausea, no vomiting, no abdominal pain. Normoactive bowel sounds. NEUROLOGICAL: No headaches, no weakness, no numbness. HEMATOLOGICAL: Denies any bleeding or petechiae. GENITOURINARY: Denies any burning micturition, frequency, or urgency. MUSCULOSKELETAL/RHEUMATOLOGICAL: Denies any joint pain, swelling, or any muscle pain. ENDOCRINE: Denies any polyuria or polydipsia. Medication: Aspirin, Lipitor, Coreg, ceftriaxone, Pepcid, Lasix, Neurontin, heparin, hydralazine, NovoLog, Narcan, nitroglycerin, Objective - Vital Signs Vital signs: Vital Signs Temp 98.0 F 12/05/18 16:00 Pulse 71 12/05/18 18:00 Resp 12 12/05/18 18:00 BP 93/44 12/05/18 18:00 Pulse Ox 96 12/05/18 18:00 Intake & Output 12/04/18 12/05/18 12/05/18 18:59 06:59 18:59 Intake Total 501.679 384.787 220 Output Total 670 1580 1730 Balance -168.321 -1195.213 -1510 Weight 66.2 kg Intake: IV 60 220 220 0.9 normal saline 60 220 120 Magnesium Sulfate-D5w Pmx 100 1 gm In Dextrose/Water 1 100ml.bag @ 100 mls/hr IVPB Q1H DESI Rx#: [id number] Intake, IV Titration 201.679 164.787 Amount Heparin Sod,Pork in 0.45% 198.529 164.787 NaCl 25,000 unit In 0.45 % NaCl 1 250ml.bag @ 12 UNITS/KG/HR 8.74 mls/hr IV .Q24H EDSI Rx#: [id number] Nitroglycerin-D5w Pmx 50 3.15 mg In Dextrose/Water 1 250ml.bag @ 5 MCG/MIN 1.5 mls/hr IV .Q24H DESI Rx#: [id number] Oral 240 Output: Urine 670 1580 1730 Other: Voiding Method Indwelling Catheter Indwelling Catheter Indwelling Catheter # Voids 3 # Bowel Movements 1 - Exam GENERAL: The patient is alert and oriented x3, not in any acute distress. Well developed, well nourished. HEENT: Pupils are round and equally reacting to light. EOMI. No scleral icterus. No conjunctival pallor. Normocephalic, atraumatic. No pharyngeal erythema. No thyromegaly. CARDIOVASCULAR: S1 and S2 present. No murmurs, rubs, or gallops. -PULMONARY: Chest is clear to auscultation, no wheezing . Bilateral inspiratory crackles. ABDOMEN: Soft, nontender, nondistended, normoactive bowel sounds. No palpable organomegaly. MUSCULOSKELETAL: No joint swelling or deformity. -EXTREMITIES: No cyanosis, clubbing, . Bilateral pitting leg edema NEUROLOGICAL: Gross neurological examination did not reveal any focal deficits. SKIN: No rashes. - Labs CBC & Chem 7: 12/05/18 04:26 12/05/18 04:26 Labs: Abnormal Lab Results - Last 24 Hours (Table) 12/04/18 12/04/18 12/04/18 Range/Units 12:24 17:55 18:37 RBC (3.80-5.40) m/uL Hgb (11.4-16.0) gm/dL Hct (34.0-46.0) % APTT 40.7 H (22.0-30.0) sec D-Dimer (<0.60) mg/L FEU BUN (7-17) mg/dL Creatinine (0.52-1.04) mg/dL Glucose (74-99) mg/dL POC Glucose (mg/dL) (75-99) mg/dL Hemoglobin A1c 7.0 H (4.0-6.0) % Calcium (8.4-10.2) mg/dL Phosphorus (2.5-4.5) mg/dL Magnesium (1.6-2.3) mg/dL HDL Cholesterol (40-60) mg/dL Urine Protein 1+ H (Negative) Urine Blood Moderate H (Negative) Ur Leukocyte Esterase Small H (Negative) Urine RBC 103 H (0-5) /hpf Urine WBC 7 H (0-5) /hpf Urine Bacteria Rare H (None) /hpf Urine Mucus Rare H (None) /hpf 12/04/18 12/05/18 12/05/18 Range/Units 20:30 04:26 04:26 RBC 3.16 L (3.80-5.40) m/uL Hgb 9.5 L D (11.4-16.0) gm/dL Hct 29.8 L (34.0-46.0) % APTT (22.0-30.0) sec D-Dimer (<0.60) mg/L FEU BUN 26 H (7-17) mg/dL Creatinine 1.51 H (0.52-1.04) mg/dL Glucose 148 H (74-99) mg/dL POC Glucose (mg/dL) 218 H (75-99) mg/dL Hemoglobin A1c (4.0-6.0) % Calcium 8.3 L (8.4-10.2) mg/dL Phosphorus 4.6 H (2.5-4.5) mg/dL Magnesium 1.5 L (1.6-2.3) mg/dL HDL Cholesterol 63 H (40-60) mg/dL Urine Protein (Negative) Urine Blood (Negative) Ur Leukocyte Esterase (Negative) Urine RBC (0-5) /hpf Urine WBC (0-5) /hpf Urine Bacteria (None) /hpf Urine Mucus (None) /hpf 12/05/18 12/05/18 12/05/18 Range/Units 04:26 04:26 06:47 RBC (3.80-5.40) m/uL Hgb (11.4-16.0) gm/dL Hct (34.0-46.0) % APTT 44.0 H (22.0-30.0) sec D-Dimer 3.10 H (<0.60) mg/L FEU BUN (7-17) mg/dL Creatinine (0.52-1.04) mg/dL Glucose (74-99) mg/dL POC Glucose (mg/dL) 165 H (75-99) mg/dL Hemoglobin A1c (4.0-6.0) % Calcium (8.4-10.2) mg/dL Phosphorus (2.5-4.5) mg/dL Magnesium (1.6-2.3) mg/dL HDL Cholesterol (40-60) mg/dL Urine Protein (Negative) Urine Blood (Negative) Ur Leukocyte Esterase (Negative) Urine RBC (0-5) /hpf Urine WBC (0-5) /hpf Urine Bacteria (None) /hpf Urine Mucus (None) /hpf 12/05/18 12/05/18 12/05/18 Range/Units 11:54 12:48 16:58 RBC (3.80-5.40) m/uL Hgb (11.4-16.0) gm/dL Hct (34.0-46.0) % APTT 59.1 H (22.0-30.0) sec D-Dimer (<0.60) mg/L FEU BUN (7-17) mg/dL Creatinine (0.52-1.04) mg/dL Glucose (74-99) mg/dL POC Glucose (mg/dL) 173 H 131 H (75-99) mg/dL Hemoglobin A1c (4.0-6.0) % Calcium (8.4-10.2) mg/dL Phosphorus (2.5-4.5) mg/dL Magnesium (1.6-2.3) mg/dL HDL Cholesterol (40-60) mg/dL Urine Protein (Negative) Urine Blood (Negative) Ur Leukocyte Esterase (Negative) Urine RBC (0-5) /hpf Urine WBC (0-5) /hpf Urine Bacteria (None) /hpf Urine Mucus (None) /hpf Microbiology - Last 24 Hours (Table) 12/04/18 17:55 Urine Culture - Preliminary Urine,Voided Assessment and Plan Assessment: Possible acute congestive heart failure, unknown ejection fraction Elevated troponin. Possible non-STEMI. Elevated d-dimer. Bilateral leg swelling. History of diabetes mellitus Hyperlipidemia Essential hypertension History of aortic valve replacement with bovine valve History of COPD Plan: This is a pleasant 78 years old female who presents because of congestive heart failure and elevated d-dimer. Patient is still on heparin drip, no VQ scan needed as per pulmonary recommendation. Doppler is negative for DVT. Chest x- ray for follow-up. Continue with diuretics. Labs and medication were reviewed.. Continue same treatment. Continue with symptomatic treatment. Resume home medication. Monitor lytes and vitals. DVT and GI prophylaxis. Further recommendations of the clinical course of the patient DVT prophylaxis: heparin GI Prophylaxis: Pepcid PT/OT: Pending Prognosis is guarded
[2018-12-05 20:43] LABS: Glucose,Whole Blood 157 mg/dL (75-99)
[2018-12-06] MEDS: FUROSEMIDE 10 MG/ML 4 ML VIAL IV SCH ×3 (01:38→22:10)
[2018-12-06] MEDS: HEPARIN SOD,PORK IN 0.45% NACL 25,000 UNIT in 0.45% NACL 1 250ML.BAG IV SCH (01:39)
[2018-12-06 04:55] LABS: Basophils % (A) 1 %; Eosinophils # (A) 0.2 k/uL (0-0.7); Eosinophils % (A) 4 %; HCT 30.5 % (34.0-46.0); HGB 9.7 gm/dL (11.4-16.0); Hypochromasia Slight; Lymphocytes # (A) 1.4 k/uL (1.0-4.8); Lymphocytes % (A) 20 %; MCH 30.3 pg (25.0-35.0); MCHC 31.8 g/dL (31.0-37.0); MCV 95.2 fL (80.0-100.0); Mean Platelet Volume 8.2; Monocytes # (A) 0.5 k/uL (0-1.0); Monocytes % (A) 7 %; Neutrophils # (A) 4.7 k/uL (1.3-7.7); Neutrophils % (A) 68 %; Platelet Count 155 k/uL (150-450); RDW 13.2 % (11.5-15.5); WBC 6.9 k/uL (3.8-10.6)
[2018-12-06 05:38] LABS: Albumin 2.7 g/dL (3.5-5.0); Calcium 8.2 mg/dL (8.4-10.2); Magnesium 1.9 mg/dL (1.6-2.3); Phosphorus 4.3 mg/dL (2.5-4.5); Potassium 3.9 mmol/L (3.5-5.1); Total Bilirubin 0.5 mg/dL (0.2-1.3)
[2018-12-06] MEDS: INSULIN ASPART (NovoLOG) 100 UNIT/ML VIAL SQ SCH ×4 (07:02→22:10)
[2018-12-06] MEDS: CARVEDILOL 6.25 MG TAB PO SCH ×2 (07:02→17:01)
[2018-12-06 07:04] LABS: Glucose,Whole Blood 125 mg/dL (75-99)
--- NOTE | 2018-12-06 08:10 | XR ---
EXAMINATION TYPE: XR chest 1V DATE OF EXAM: 12/06/2018 COMPARISON: 12/05/2018 HISTORY: 78-year-old female shortness of breath TECHNIQUE: Single frontal view of the chest is obtained. FINDINGS: Median sternotomy wires are present. Possible retained epicardial pacer lead. Heart mildly enlarged. Diffuse interstitial and vascular prominence persists with continued small to moderate pleural effusi ons with bibasilar opacities. IMPRESSION: Continued CHF with pulmonary vascular congestion. Continued small to moderate pleural effusions with adjacent atelectasis and/or consolidation.
--- NOTE | 2018-12-06 09:45 | P.PN ---
Subjective This is a pleasant 78 years old female with past medical history of coronary artery disease, hypertension, hyperlipidemia, diabetes mellitus, status post bariatric surgery and aortic valve replacement. She presents because of dyspnea over 7 days which was getting worse not associated with cough or chest pain. He has bilateral leg swelling. Patient's vitals are reviewed. Her blood pressure on the high side 181/71. Saturating 96% on 2 L via NC. Patient is afebrile. CBC showing mild anemia 10. Creatinine is elevated at 1.35, with unknown baseline. Troponin elevated at 0.315 and 0.2-35[place] [address]. Patient has elevated d- dimer 3.8 and cardiology or the recommended VQ scan and echocardiogram. As well as continue with Lasix and add beta beatrice. While Kamran inhibitor is on hold for elevated creatinine. Patient states that she doesn't have this pcp now. Patient was placed on heparin drip currently. 12/05/2018 Patient is seen today in the ICU. She was sitting in the chair and feels better. Her dyspnea is improving with no chest pain. Her blood pressure is controlled and she is of nitroglycerin drip. Vitas looks stable and she is saturating 98% on 5 L oxygen via nasal cannula. Leukocytosis resolved on WBC 9.1K. Creatinine is slightly elevated to 1.5, sugar is controlled. Patient was started on ceftriaxone yesterday for possible urinary tract infection, leukocytosis resolved today however urine culture still pending. Patient with no fever. Repeat chest x-ray from today showing CHF with bilateral pleural effusion and congestion. She still also on heparin drip. 12/06/2018 Patient seen and examined in the ICU. Her dyspnea is same as yesterday which is improved. No chest pain. Mild coughing. Blood pressure is stable. Rest of the vital signs stable as well. CBC unremarkable. Creatinine is similar to yesterday at 1.5. Patient is still on heparin drip. Urine culture showing no growth, patient elected have UTI and will stop antibiotic. Chest x-ray still showing congestive heart failure. Patient continue on Lasix 40 mg twice a day and imdur daily. CONSTITUTIONAL: No fever, no malaise, no fatigue. HEENT: No recent visual problems or hearing problems. Denied any sore throat. CARDIOVASCULAR: no syncope. PULMONARY: no hemoptysis. GASTROINTESTINAL: No diarrhea, no nausea, no vomiting, no abdominal pain. Normoactive bowel sounds. NEUROLOGICAL: No headaches, no weakness, no numbness. HEMATOLOGICAL: Denies any bleeding or petechiae. GENITOURINARY: Denies any burning micturition, frequency, or urgency. MUSCULOSKELETAL/RHEUMATOLOGICAL: Denies any joint pain, swelling, or any muscle pain. ENDOCRINE: Denies any polyuria or polydipsia. Medication: Aspirin, Lipitor, Coreg, ceftriaxone, Pepcid, Lasix, Neurontin, heparin, hydralazine, NovoLog, Narcan, nitroglycerin, Objective - Vital Signs Vital signs: Vital Signs Temp 97.7 F 12/06/18 00:00 Pulse 57 L 12/06/18 07:00 Resp 7 L 12/06/18 07:00 BP 145/42 12/06/18 07:00 Pulse Ox 97 12/06/18 07:00 Intake & Output 12/05/18 12/06/18 12/06/18 18:59 06:59 18:59 Intake Total 392.238 120 10 Output Total 1730 1350 100 Balance -1337.762 -1230 -90 Weight 66.2 kg 64.1 kg Intake: IV 220 120 10 0.9 normal saline 120 120 10 Magnesium Sulfate-D5w Pmx 100 1 gm In Dextrose/Water 1 100ml.bag @ 100 mls/hr IVPB Q1H DESI Rx#: [id number] Intake, IV Titration 172.238 Amount Heparin Sod,Pork in 0.45% 172.238 NaCl 25,000 unit In 0.45 % NaCl 1 250ml.bag @ 12 UNITS/KG/HR 8.74 mls/hr IV .Q24H DESI Rx#: [id number] Output: Urine 1730 1350 100 Other: Voiding Method Indwelling Catheter Indwelling Catheter # Bowel Movements 1 - Exam GENERAL: The patient is alert and oriented x3, not in any acute distress. Well developed, well nourished. HEENT: Pupils are round and equally reacting to light. EOMI. No scleral icterus. No conjunctival pallor. Normocephalic, atraumatic. No pharyngeal erythema. No thyromegaly. CARDIOVASCULAR: S1 and S2 present. No murmurs, rubs, or gallops. -PULMONARY: Chest is clear to auscultation, no wheezing . Bilateral inspiratory crackles. ABDOMEN: Soft, nontender, nondistended, normoactive bowel sounds. No palpable organomegaly. MUSCULOSKELETAL: No joint swelling or deformity. -EXTREMITIES: No cyanosis, clubbing, . Bilateral pitting leg edema NEUROLOGICAL: Gross neurological examination did not reveal any focal deficits. SKIN: No rashes. - Labs CBC & Chem 7: 12/06/18 04:27 12/06/18 04:27 Labs: Abnormal Lab Results - Last 24 Hours (Table) 12/05/18 12/05/18 12/05/18 Range/Units 11:54 12:48 16:58 RBC (3.80-5.40) m/uL Hgb (11.4-16.0) gm/dL Hct (34.0-46.0) % APTT 59.1 H (22.0-30.0) sec BUN (7-17) mg/dL Creatinine (0.52-1.04) mg/dL Glucose (74-99) mg/dL POC Glucose (mg/dL) 173 H 131 H (75-99) mg/dL Calcium (8.4-10.2) mg/dL Alkaline Phosphatase (38-126) U/L Total Protein (6.3-8.2) g/dL Albumin (3.5-5.0) g/dL 12/05/18 12/06/18 12/06/18 Range/Units 20:31 04:27 04:27 RBC 3.20 L (3.80-5.40) m/uL Hgb 9.7 L (11.4-16.0) gm/dL Hct 30.5 L (34.0-46.0) % APTT (22.0-30.0) sec BUN 25 H (7-17) mg/dL Creatinine 1.59 H (0.52-1.04) mg/dL Glucose 115 H (74-99) mg/dL POC Glucose (mg/dL) 157 H (75-99) mg/dL Calcium 8.2 L (8.4-10.2) mg/dL Alkaline Phosphatase 140 H (38-126) U/L Total Protein 5.0 L (6.3-8.2) g/dL Albumin 2.7 L (3.5-5.0) g/dL 12/06/18 12/06/18 Range/Units 04:27 06:53 RBC (3.80-5.40) m/uL Hgb (11.4-16.0) gm/dL Hct (34.0-46.0) % APTT 69.4 H (22.0-30.0) sec BUN (7-17) mg/dL Creatinine (0.52-1.04) mg/dL Glucose (74-99) mg/dL POC Glucose (mg/dL) 125 H (75-99) mg/dL Calcium (8.4-10.2) mg/dL Alkaline Phosphatase (38-126) U/L Total Protein (6.3-8.2) g/dL Albumin (3.5-5.0) g/dL Microbiology - Last 24 Hours (Table) 12/04/18 17:55 Urine Culture - Final Urine,Voided Assessment and Plan Assessment: acute congestive heart failure, systolic with EF 35-40% Elevated troponin. unlikely non-STEMI. Aortic regurgitation Expected hypertension and hypertensive emergency on admission. Improved Elevated d-dimer. Bilateral leg swelling. History of diabetes mellitus Hyperlipidemia Essential hypertension History of aortic valve replacement with bovine valve History of COPD Plan: This is a pleasant 78 years old female who presents because of congestive heart failure and elevated d-dimer. Patient is still on heparin drip, no VQ scan needed as per pulmonary recommendation. Doppler is negative for DVT. Chest x- ray for follow-up. Continue with diuretics. Labs and medication were reviewed.. Continue same treatment. Continue with symptomatic treatment. Resume home medication. Monitor lytes and vitals. DVT and GI prophylaxis. Further recommendations of the clinical course of the patient DVT prophylaxis: heparin GI Prophylaxis: Pepcid PT/OT: Pending Prognosis is guarded
--- NOTE | 2018-12-06 10:04 | PN ---
PROGRESS NOTE Mrs. Chowdary is a 78-year-old female with a history of aortic valve replacement, who presented with symptoms of congestive heart failure with progressive dyspnea and episode of pulmonary edema. She is feeling much better at this time. She is on nasal cannula. Hemodynamically stable. She is denying any chest pain. She denies any dizziness, palpitation. She has no episodes of hypotension. She is diuresing well. She denies any nausea or vomiting. She continues to be on Lasix 40 mg IV q.8 hours, carvedilol 6.25 mg twice a day, Lipitor 4 mg daily, aspirin once a day, hydralazine 50 mg 3 times a day and IV heparin. PHYSICAL EXAMINATION: Blood pressure 145/40 with a heart rate in the 50s. Lungs with few crackles at the bases. HEART: Regular rate and rhythm, S1, S2. No S3 with systolic murmur at the base and early diastolic murmur, no rub. ABDOMEN: Soft and nontender. Positive bowel sounds. EXTREMITIES: No significant edema. LAB DATA: Revealed BUN and creatinine 25 and 1.59, potassium 3.9, hemoglobin of 9.7. IMPRESSION: 1. Acute pulmonary edema with evidence of aortic regurgitation, rule out failure of the bioprosthetic valve. 2. Cardiomyopathy of unknown etiology, not documented in 2018. 3. Hypertension. 4. Renal failure. RECOMMENDATION: I will decrease the IV Lasix to 40 mg q.12 hours, stop the IV heparin. I have discussed with her the finding. I have recommended proceeding with transesophageal echocardiogram to further assess her aortic valve and if there is significant aortic regurgitation, then the patient will need to be evaluated for redo aortic valve replacement and a cardiac catheterization will be needed at that time. I will add nitrate to her regimen. Depending on her progress, further recommendation will be made. MMODL / IJN: [id number] /
--- NOTE | 2018-12-06 10:34 | P.PN ---
Subjective Progress Note Date: 12/06/18 Principal diagnosis: Acute hypoxic respiratory failure secondary to systolic congestive heart failure This is 78-year-old white female patient with past medical history of retention , hyperlipidemia, diabetes, nicotine dependence, history of aortic valve replacement with a bioprosthetic valve 8 years ago at [facility], history of subclavian stenting in the past, chronic iron deficiency anemia. Patient presented to the hospital with symptoms of progressive shortness of breath over the course of 7 days prior to admission and worsening lower extremity edema. Patient denied any chest discomfort. She initially went to [facility], and she was transferred to this hospital. Her d-dimer came back elevated at 3.8 , white blood cell count was 8.8, hemoglobin is 10.6, platelet count was 114, BUN was 18, creatinine was 1.4. There was a mild troponin elevation, proBNP level 4169. She denied any fever or chills, denied any cough or congestion. At this hospital repeat blood work revealed troponins of 0.31, 0.23. Patient was hypertensive, with a blood pressure 187/74, EKG revealed normal sinus rhythm with a right bundle branch block, and nonspecific ST and T-wave abnormalities. Chest x-ray showed bilateral pleural effusions, and the patient was given IV Lasix. During the course of the day on 12/04/2018 patient started experiencing significantly worsening shortness of breath, rapid response team was called, patient was placed on BiPAP support with pressure of 10 and 5 and FiO2 100%. She was given additional 80 mg of IV Lasix, she was quiet diaphoretic, tachypneic, and hypotensive with a systolic blood pressure in the 200s. He was seen by cardiology at the bedside, and we evaluated the patient at the bedside, and patient was moved to the intensive care unit for closer monitoring. The echocardiogram showed paradoxical dyssynergy septal motion consistent with postoperative status, moderate concentric left ventricular hypertrophy, left ventricular systolic function was moderately impaired with an EF between 35-40%, there was [id number] aortic regurgitation, with a normally functioning bioprosthetic valve and there was no regurgitation of the bioprosthetic aortic valve noted. There was moderate pulmonary hypertension with right-sided pressures of 59 mmHg, in moderate tricuspid regurgitation. There was [id number] mitral regurgitation. Chest x-ray showed pulmonary edema, patient is seen again in follow-up in the intensive care unit, her FiO2 is currently down to 40%, she is awake and alert, a trial of nasal cannula was given, but patient was quite tachypneic, and had to be placed back on BiPAP support. She is starting to diurese, so far she had made over 500 mL of urine after the IV Lasix, she has been put on maintenance dose of IV Lasix of 40 mg every 12 hours, which will increase to every 8 hours. She remains quite hypertensive, she was started on oral Coreg, and we will initiate IV nitroglycerin drip. Patient was reevaluated today on 12/05/2018, she remains in the ICU, remains on BiPAP, however I switch her today from BiPAP to a nasal cannula. Patient remains on diuretics, and she responded well to Lasix 40 mg IV push every 8 hours. Remains on nitroglycerin drip, and her blood pressure medications are being addressed by cardiology on the case. She is on heparin, there is no slight index of suspicion for pulmonary embolism, no need for VQ scan. Heparin was started mostly because of her acute cardiac presentation. And if not needed , can be discontinued by cardiology. Her echocardiogram is quite abnormal and showed significant abnormalities including elevated dysfunction, aortic regurgitation, and mitral regurgitation. There is also evidence of pulmonary hypertension related to her valvular heart disease. Again my index of suspicion for pulmonary embolism is extremely low and a VQ scan will be worthless and of no value anyway. Overall the patient is feeling better, breathing a lot easier, and I proceeded to switch her from BiPAP to a nasal cannula, likely will be tolerated well. Creatinine was noted to be a bit worse today, hence I would likely cut down on the Lasix from 40 mg every 8 hours to 40 mg every 12 hours. Chest x-ray this morning continues to show some evidence of central vascular congestion and interstitial edema. Hydralazine was increased by cardiology, and amlodipine will be discontinued. She will be switched from IV nitroglycerin to Nitropaste. Previous cardiac workup from her senior research analyst was requested by Dr. Vega. Considering possible surgical intervention on her aortic valve. Patient was reevaluated today in the ICU on 12/06/2018, she is now on nasal cannula for the last 24 hours. Remains on Lasix 40 mg IV push every 8 hours, she is also on Coreg, hydralazine, and IV heparin. Patient is doing well, relatively asymptomatic, no cough no wheezing no shortness of breath and no chest pain. Chest x-ray continues to show mild congestive heart failure changes. Labs showed relatively normal CBC however hemoglobin is 9.7. PTT is therapeutic. Electrolytes are normal BUN is 25 creatinine 1.59 her baseline creatinine on admission was 1.35. Clinically however the patient is feeling better, breathing a lot easier. She is -1.2 L over the last 24 hours. Objective - Vital Signs Vital signs: Vital Signs Temp 97.7 F 12/06/18 00:00 Pulse 57 L 12/06/18 07:00 Resp 7 L 12/06/18 07:00 BP 145/42 12/06/18 07:00 Pulse Ox 97 12/06/18 07:00 Intake & Output 12/05/18 12/06/18 12/06/18 18:59 06:59 18:59 Intake Total 392.238 120 10 Output Total 1730 1350 100 Balance -1337.762 -1230 -90 Weight 66.2 kg 64.1 kg Intake: IV 220 120 10 0.9 normal saline 120 120 10 Magnesium Sulfate-D5w Pmx 100 1 gm In Dextrose/Water 1 100ml.bag @ 100 mls/hr IVPB Q1H DESI Rx#: [id number] Intake, IV Titration 172.238 Amount Heparin Sod,Pork in 0.45% 172.238 NaCl 25,000 unit In 0.45 % NaCl 1 250ml.bag @ 12 UNITS/KG/HR 8.74 mls/hr IV .Q24H DESI Rx#: [id number] Output: Urine 1730 1350 100 Other: Voiding Method Indwelling Catheter Indwelling Catheter # Bowel Movements 1 - Exam Physical Exam: Revealed a 78-year-old female on 4 L nasal cannula, in no distress. Off BiPAP. Head: Atraumatic normocephalic. HEENT:[Neck is supple.] [No neck masses.] [No thyromegaly.] [No JVD.] PERRLA, EOMI, no icterus. Moist mucous membranes noted. Chest: crackles at the bases, no rhonchi no wheezes. Symmetrical chest expansion. No chest wall tenderness.] Cardiac Exam: [Normal S1 and S2, 3/6 systolic murmur thought the precordium. Best heard over the aortic area.. 2/6 diastolic murmur is also heard at the left lower sternal border] Abdomen: [Soft, nontender, no megaly, no rebound, no guarding, normal bowel sounds.] Extremities: [No clubbing, no edema, no cyanosis.] Neurological Exam: [No focal neurologic deficit.] Psychiatric: Normal mood affect and mental status examination. Lymphatics: No lymphadenopathy. - Labs CBC & Chem 7: 12/06/18 04:27 12/06/18 04:27 Labs: Abnormal Lab Results - Last 24 Hours (Table) 12/05/18 12/05/18 12/05/18 Range/Units 11:54 12:48 16:58 RBC (3.80-5.40) m/uL Hgb (11.4-16.0) gm/dL Hct (34.0-46.0) % APTT 59.1 H (22.0-30.0) sec BUN (7-17) mg/dL Creatinine (0.52-1.04) mg/dL Glucose (74-99) mg/dL POC Glucose (mg/dL) 173 H 131 H (75-99) mg/dL Calcium (8.4-10.2) mg/dL Alkaline Phosphatase (38-126) U/L Total Protein (6.3-8.2) g/dL Albumin (3.5-5.0) g/dL 12/05/18 12/06/18 12/06/18 Range/Units 20:31 04:27 04:27 RBC 3.20 L (3.80-5.40) m/uL Hgb 9.7 L (11.4-16.0) gm/dL Hct 30.5 L (34.0-46.0) % APTT (22.0-30.0) sec BUN 25 H (7-17) mg/dL Creatinine 1.59 H (0.52-1.04) mg/dL Glucose 115 H (74-99) mg/dL POC Glucose (mg/dL) 157 H (75-99) mg/dL Calcium 8.2 L (8.4-10.2) mg/dL Alkaline Phosphatase 140 H (38-126) U/L Total Protein 5.0 L (6.3-8.2) g/dL Albumin 2.7 L (3.5-5.0) g/dL 12/06/18 12/06/18 Range/Units 04:27 06:53 RBC (3.80-5.40) m/uL Hgb (11.4-16.0) gm/dL Hct (34.0-46.0) % APTT 69.4 H (22.0-30.0) sec BUN (7-17) mg/dL Creatinine (0.52-1.04) mg/dL Glucose (74-99) mg/dL POC Glucose (mg/dL) 125 H (75-99) mg/dL Calcium (8.4-10.2) mg/dL Alkaline Phosphatase (38-126) U/L Total Protein (6.3-8.2) g/dL Albumin (3.5-5.0) g/dL Microbiology - Last 24 Hours (Table) 12/04/18 17:55 Urine Culture - Final Urine,Voided Assessment and Plan Assessment: #1. Acute hypoxemic respiratory failure related to acute exacerbation of congestive heart failure with systolic dysfunction and valvular heart disease including aortic regurgitation, and mitral regurgitation. #2. Hypertensive emergency improved, blood pressure medications were reviewed. Continue Coreg, and hydralazine. She is also on imdur #3. Acute kidney injury, possible cardiorenal syndrome. We'll cut down the Lasix to 40 mg every 12 hours #4. Valvular heart disease, status post aortic valve replacement with a bioprosthetic valve. Patient may require transesophageal echocardiogram. #5. Moderate pulmonary hypertension, secondary to valvular heart disease #6. Elevated troponins suggesting non-ST elevated HI #7. Hypertension, hyperlipidemia, diabetes mellitus type 2 #8. Former nicotine dependence, quit smoking in October 2018 #9. Elevated d-dimer, index of suspicion for pulmonary embolism is nonexistent #10. Chronic iron deficiency anemia Plan: Continue diuretics, continue blood pressure medications, consider transferring the patient out of the ICU to a monitor bed on selective, discussed her condition with the senior research analyst, patient may benefit from having transesophageal echocardiogram, and decision will have to be made whether the patient may require eventually aortic valve surgery. We'll continue to follow. Placed on nasal cannula for now, and seems to be responding well to diuretics. However the patient could potentially develop flash pulmonary edema as she did when she was transferred to the ICU, we will continue to monitor closely on a monitor bed on selective. Time with Patient: Less than 30
[2018-12-06] MEDS: FAMOTIDINE 20 MG TAB PO SCH (10:36)
[2018-12-06] MEDS: ISOSORBIDE MONONITRATE ER 30 MG TAB.ER.24H PO SCH (10:36)
[2018-12-06] MEDS: ASPIRIN 81 MG PO SCH (10:36)
[2018-12-06] MEDS: GABAPENTIN 300 MG CAP PO SCH ×3 (10:36→22:10)
[2018-12-06] MEDS: hydrALAZINE HCL 50 MG TAB PO SCH ×3 (10:36→22:09)
[2018-12-06] MEDS: ATORVASTATIN 40 MG TAB PO SCH (10:36)
[2018-12-06 12:19] LABS: Glucose,Whole Blood 155 mg/dL (75-99)
[2018-12-06 17:11] LABS: Glucose,Whole Blood 129 mg/dL (75-99)
[2018-12-06 21:27] LABS: Glucose,Whole Blood 169 mg/dL (75-99)
[2018-12-07 05:42] LABS: Glucose,Whole Blood 151 mg/dL (75-99)
[2018-12-07] MEDS: INSULIN ASPART (NovoLOG) 100 UNIT/ML VIAL SQ SCH ×4 (06:13→22:40)
[2018-12-07 07:02] LABS: Potassium 3.9 mmol/L (3.5-5.1)
[2018-12-07 07:03] LABS: Calcium 7.8 mg/dL (8.4-10.2); Magnesium 1.7 mg/dL (1.6-2.3); Phosphorus 4.9 mg/dL (2.5-4.5)
[2018-12-07] MEDS ORDERED: fentaNYL (PF) 50 MCG/ML 2 ML AMP ONE (07:24)
[2018-12-07] MEDS ORDERED: IV FLUID CONTINUATION 500 ML IV ONE (07:46)
[2018-12-07] MEDS: BENZOCAINE SPRAY 1 CAN MUCOUS MEM ONE ×2 (07:46→07:48)
[2018-12-07] MEDS ORDERED: fentaNYL (PF) 50 MCG/ML 2 ML AMP IVP ONE (07:53)
[2018-12-07] MEDS ORDERED: MIDAZOLAM 2 MG/2 ML VIAL IVP ONE (07:53)
--- NOTE | 2018-12-07 08:19 | XR ---
EXAMINATION TYPE: XR chest 1V DATE OF EXAM: 12/07/2018 COMPARISON: 12/06/2018 HISTORY: Shortness of breath TECHNIQUE: Single frontal view of the chest is obtained. FINDINGS: There is marked cardiomegaly and layering bilateral small pleural effusions with bibasilar airspace disease. Pulmonary hyperinflation and biapical lucency represent underlying COPD. Epicardia l pacing leads are seen in addition to postoperative changes from prior CABG. Mild osseous deminerali zation is seen throughout. IMPRESSION: Similar-appearing sequela of congestive heart failure with small layering pleural effusi ons and probable basilar atelectasis. Marked enlargement of the cardiac silhouette remains and echoca rdiogram could be considered if not recently performed.
--- NOTE | 2018-12-07 08:44 | PN ---
PROGRESS NOTE Mrs. Chowdary is a 78-year-old female who presented with symptoms of progressive dyspnea and pulmonary edema. She is feeling well this morning. She is denying any chest pain. Her breathing has been stable. She denies any dizziness or palpitation. She denies any nausea. She underwent transesophageal echocardiogram that revealed evidence of severe aortic regurgitation with mildly to moderately impaired left ventricular systolic function. She has mild function of her bioprosthetic aortic valve. She continues to be on Lasix 40 mg IV q.12 hours, Coreg 6.25 mg twice a day, Lipitor 40 mg daily, aspirin once a day, hydralazine 50 mg 3 times a day and isosorbide mononitrate 30 mg daily. PHYSICAL EXAMINATION: Blood pressure 123/60 with the heart rate in the 60s. LUNGS: Clear. HEART: Regular rate and rhythm. S1, S2 with systolic ejection murmur and diastolic murmur at the base. No rub. ABDOMEN: Soft, nontender. EXTREMITIES: No edema. LAB DATA: Lab data revealed a BUN and creatinine 22 and 1.56. Potassium 3.9. Magnesium 1.7. IMPRESSION: 1. Pulmonary edema with severe aortic regurgitation with bioprosthetic aortic regurgitation with mild function. 2. Mildly to moderately impaired left ventricular systolic function. 3. Hypertension. 4. Renal function abnormalities. RECOMMENDATION: I will change her to oral diuretic. Continue the rest of medical regimen. Increase her level activity, follow her renal function closely. The patient will require coronary angiography prior to redo aortic valve replacement and possible mitral valve repair as well. I would like to stabilize her renal function first before we intervene. I discussed those finding with the patient. MMKARLOSL / IJN: [id number] /
--- NOTE | 2018-12-07 09:08 | ECHOT ---
TRANSESOPHAGEAL ECHOCARDIOGRAM INDICATION: Evaluation of intra-aortic valve. PROCEDURE: After explaining the procedure to the patient as well as the risks and complication, blood pressure, heart rate, O2 saturation was monitored. The throat was sprayed with Cetacaine. She received 2 mg intravenous Versed, 50 mcg intravenous fentanyl. The probe was introduced into the esophagus without difficulties. Images were obtained. Following that, the probe was removed. FINDINGS: Left atrial size is mildly dilated. Left atrial appendage is normal. Left ventricular size is normal. There is evidence of global hypokinesis, estimated ejection fraction is 45%. The aortic valve is a bioprosthetic valve with thickening and calcification. Mitral valve revealed mild antral calcification of moderate degree. Tricuspid valve is normal. Descending thoracic aorta revealed mild atherosclerotic changes. No pericardial effusion was noted. Contrast bubble study revealed no shunting across the interatrial septum. Doppler pulse wave and color Doppler were obtained as well as continuous Doppler and revealed a moderate mitral with severe aortic regurgitation and mild tricuspid regurgitation. There was no shunting by color Doppler study. CONCLUSION: 1. Mildly dilated left atrium with normal appearance of the left atrial appendage. 2. Normal left ventricular size with mild to moderate global hypokinesis. 3. Bioprosthetic aortic valve with thickening and preserved opening with severe aortic regurgitation. 4. Mitral anulus calcification with moderate mitral regurgitation. 5. Mild tricuspid regurgitation. 6. Mild atherosclerotic changes of the descending thoracic aorta. 7. No shunting across the interatrial septum. 8. No pericardial effusion. MMODL / IJN: [id number] /
[2018-12-07] MEDS: FUROSEMIDE 40 MG TAB PO SCH ×2 (09:13→20:31)
[2018-12-07] MEDS: FAMOTIDINE 20 MG TAB PO SCH (09:13)
[2018-12-07] MEDS: ASPIRIN 81 MG PO SCH (09:13)
[2018-12-07] MEDS: ATORVASTATIN 40 MG TAB PO SCH (09:13)
[2018-12-07] MEDS: CARVEDILOL 6.25 MG TAB PO SCH ×2 (09:13→17:28)
[2018-12-07] MEDS: hydrALAZINE HCL 50 MG TAB PO SCH ×3 (09:14→22:39)
[2018-12-07] MEDS: GABAPENTIN 300 MG CAP PO SCH ×3 (09:14→22:39)
[2018-12-07] MEDS: ISOSORBIDE MONONITRATE ER 30 MG TAB.ER.24H PO SCH (09:14)
--- NOTE | 2018-12-07 11:26 | P.PN ---
Subjective This is a pleasant 78 years old female with past medical history of coronary artery disease, hypertension, hyperlipidemia, diabetes mellitus, status post bariatric surgery and aortic valve replacement. She presents because of dyspnea over 7 days which was getting worse not associated with cough or chest pain. He has bilateral leg swelling. Patient's vitals are reviewed. Her blood pressure on the high side 181/71. Saturating 96% on 2 L via NC. Patient is afebrile. CBC showing mild anemia 10. Creatinine is elevated at 1.35, with unknown baseline. Troponin elevated at 0.315 and 0.2-35[place] [address]. Patient has elevated d- dimer 3.8 and cardiology or the recommended VQ scan and echocardiogram. As well as continue with Lasix and add beta beatrice. While Kamran inhibitor is on hold for elevated creatinine. Patient states that she doesn't have this pcp now. Patient was placed on heparin drip currently. 12/05/2018 Patient is seen today in the ICU. She was sitting in the chair and feels better. Her dyspnea is improving with no chest pain. Her blood pressure is controlled and she is of nitroglycerin drip. Vitas looks stable and she is saturating 98% on 5 L oxygen via nasal cannula. Leukocytosis resolved on WBC 9.1K. Creatinine is slightly elevated to 1.5, sugar is controlled. Patient was started on ceftriaxone yesterday for possible urinary tract infection, leukocytosis resolved today however urine culture still pending. Patient with no fever. Repeat chest x-ray from today showing CHF with bilateral pleural effusion and congestion. She still also on heparin drip. 12/06/2018 Patient seen and examined in the ICU. Her dyspnea is same as yesterday which is improved. No chest pain. Mild coughing. Blood pressure is stable. Rest of the vital signs stable as well. CBC unremarkable. Creatinine is similar to yesterday at 1.5. Patient is still on heparin drip. Urine culture showing no growth, patient elected have UTI and will stop antibiotic. Chest x-ray still showing congestive heart failure. Patient continue on Lasix 40 mg twice a day and imdur daily. 12/07/2018 Patient still improving regarding her dyspnea. No chest pain or coughing. No other new complaint. Patient is going for a KANDACE as per real estate listing consultant recommendation for the evaluation of the aortic valve regurgitation.creatinine stable at 1.5. Her sugar is controlled 120-169.she did not get insulin daily. repeat chest x-ray shows similar congestive heart failure with pleural effusion.her heparin drip was stopped and she is currently on by mouth Lasix 40 mg twice a day. CONSTITUTIONAL: No fever, no malaise, no fatigue. HEENT: No recent visual problems or hearing problems. Denied any sore throat. CARDIOVASCULAR: no syncope. PULMONARY: no hemoptysis. GASTROINTESTINAL: No diarrhea, no nausea, no vomiting, no abdominal pain. Normoactive bowel sounds. NEUROLOGICAL: No headaches, no weakness, no numbness. HEMATOLOGICAL: Denies any bleeding or petechiae. GENITOURINARY: Denies any burning micturition, frequency, or urgency. MUSCULOSKELETAL/RHEUMATOLOGICAL: Denies any joint pain, swelling, or any muscle pain. ENDOCRINE: Denies any polyuria or polydipsia. Medication: Aspirin, Lipitor, Coreg, ceftriaxone, Pepcid, Lasix, Neurontin, heparin, hydralazine, NovoLog, Narcan, nitroglycerin, Objective - Vital Signs Vital signs: Vital Signs Temp 98.2 F 12/07/18 04:05 Pulse 59 L 12/07/18 08:03 Resp 18 12/07/18 08:03 BP 123/60 12/07/18 08:03 Pulse Ox 97 12/07/18 08:03 Intake & Output 12/06/18 12/07/18 12/07/18 18:59 06:59 18:59 Intake Total 50 0 100 Output Total 650 126 Balance -600 -126 100 Weight 64.1 kg 68.3 kg Intake: IV 50 0 100 0.9 normal saline 50 0 Output: Urine 650 126 Other: Voiding Method Indwelling Catheter Toilet # Voids 1 # Bowel Movements 1 - Exam GENERAL: The patient is alert and oriented x3, not in any acute distress. Well developed, well nourished. HEENT: Pupils are round and equally reacting to light. EOMI. No scleral icterus. No conjunctival pallor. Normocephalic, atraumatic. No pharyngeal erythema. No thyromegaly. CARDIOVASCULAR: S1 and S2 present. No murmurs, rubs, or gallops. -PULMONARY: Chest is clear to auscultation, no wheezing . Bilateral inspiratory crackles. ABDOMEN: Soft, nontender, nondistended, normoactive bowel sounds. No palpable organomegaly. MUSCULOSKELETAL: No joint swelling or deformity. -EXTREMITIES: No cyanosis, clubbing, . Bilateral pitting leg edema NEUROLOGICAL: Gross neurological examination did not reveal any focal deficits. SKIN: No rashes. - Labs CBC & Chem 7: 12/06/18 04:27 12/07/18 05:28 Labs: Abnormal Lab Results - Last 24 Hours (Table) 12/06/18 12/06/18 12/06/18 Range/Units 12:08 16:59 21:16 Carbon Dioxide (22-30) mmol/L BUN (7-17) mg/dL Creatinine (0.52-1.04) mg/dL Glucose (74-99) mg/dL POC Glucose (mg/dL) 155 H 129 H 169 H (75-99) mg/dL Calcium (8.4-10.2) mg/dL Phosphorus (2.5-4.5) mg/dL 12/07/18 12/07/18 Range/Units 05:28 05:40 Carbon Dioxide 31 H (22-30) mmol/L BUN 22 H (7-17) mg/dL Creatinine 1.56 H (0.52-1.04) mg/dL Glucose 132 H (74-99) mg/dL POC Glucose (mg/dL) 151 H (75-99) mg/dL Calcium 7.8 L (8.4-10.2) mg/dL Phosphorus 4.9 H (2.5-4.5) mg/dL Assessment and Plan Assessment: acute congestive heart failure, systolic with EF 35-40% Elevated troponin. unlikely non-STEMI. Aortic regurgitation Expected hypertension and hypertensive emergency on admission. Improved Elevated d-dimer. Bilateral leg swelling. History of diabetes mellitus Hyperlipidemia Essential hypertension History of aortic valve replacement with bovine valve History of COPD Plan: This is a pleasant 78 years old female who presents because of congestive heart failure and elevated d-dimer. Patient is still on heparin drip, no VQ scan needed as per pulmonary recommendation. Doppler is negative for DVT. Chest x- ray for follow-up. Continue with diuretics. Labs and medication were reviewed.. Continue same treatment. Continue with symptomatic treatment. Resume home medication. Monitor lytes and vitals. DVT and GI prophylaxis. Further recommendations of the clinical course of the patient DVT prophylaxis: heparin GI Prophylaxis: Pepcid PT/OT: Pending Prognosis is guarded
[2018-12-07 12:14] LABS: Glucose,Whole Blood 161 mg/dL (75-99)
[2018-12-07 17:40] LABS: Glucose,Whole Blood 199 mg/dL (75-99)
[2018-12-07 20:40] LABS: Glucose,Whole Blood 181 mg/dL (75-99)
[2018-12-08] MEDS: INSULIN ASPART (NovoLOG) 100 UNIT/ML VIAL SQ SCH ×4 (06:06→21:17)
[2018-12-08 06:10] LABS: Glucose,Whole Blood 122 mg/dL (75-99)
[2018-12-08 06:26] LABS: Calcium 7.6 mg/dL (8.4-10.2); Magnesium 1.8 mg/dL (1.6-2.3); Phosphorus 5.4 mg/dL (2.5-4.5); Potassium 4.3 mmol/L (3.5-5.1)
[2018-12-08] MEDS: CARVEDILOL 6.25 MG TAB PO SCH ×2 (06:39→17:17)
[2018-12-08] MEDS: ASPIRIN 81 MG PO SCH (09:07)
[2018-12-08] MEDS: ATORVASTATIN 40 MG TAB PO SCH (09:07)
[2018-12-08] MEDS: FUROSEMIDE 40 MG TAB PO SCH ×2 (09:08→20:17)
[2018-12-08] MEDS: FAMOTIDINE 20 MG TAB PO SCH (09:08)
[2018-12-08] MEDS: GABAPENTIN 300 MG CAP PO SCH ×3 (09:09→22:43)
[2018-12-08] MEDS: ISOSORBIDE MONONITRATE ER 30 MG TAB.ER.24H PO SCH (09:11)
[2018-12-08] MEDS: hydrALAZINE HCL 50 MG TAB PO SCH ×3 (09:33→22:43)
[2018-12-08 11:29] LABS: Glucose,Whole Blood 154 mg/dL (75-99)
--- NOTE | 2018-12-08 11:39 | P.PN ---
Subjective This is a pleasant 78 years old female with past medical history of coronary artery disease, hypertension, hyperlipidemia, diabetes mellitus, status post bariatric surgery and aortic valve replacement. She presents because of dyspnea over 7 days which was getting worse not associated with cough or chest pain. He has bilateral leg swelling. Patient's vitals are reviewed. Her blood pressure on the high side 181/71. Saturating 96% on 2 L via NC. Patient is afebrile. CBC showing mild anemia 10. Creatinine is elevated at 1.35, with unknown baseline. Troponin elevated at 0.315 and 0.2-35. [place] [address]. Patient has elevated d- dimer 3.8 and cardiology or the recommended VQ scan and echocardiogram. As well as continue with Lasix and add beta beatrice. While Kamran inhibitor is on hold for elevated creatinine. Patient states that she doesn't have this pcp now. Patient was placed on heparin drip currently. 12/05/2018 Patient is seen today in the ICU. She was sitting in the chair and feels better. Her dyspnea is improving with no chest pain. Her blood pressure is controlled and she is of nitroglycerin drip. Vitas looks stable and she is saturating 98% on 5 L oxygen via nasal cannula. Leukocytosis resolved on WBC 9.1K. Creatinine is slightly elevated to 1.5, sugar is controlled. Patient was started on ceftriaxone yesterday for possible urinary tract infection, leukocytosis resolved today however urine culture still pending. Patient with no fever. Repeat chest x-ray from today showing CHF with bilateral pleural effusion and congestion. She still also on heparin drip. 12/06/2018 Patient seen and examined in the ICU. Her dyspnea is same as yesterday which is improved. No chest pain. Mild coughing. Blood pressure is stable. Rest of the vital signs stable as well. CBC unremarkable. Creatinine is similar to yesterday at 1.5. Patient is still on heparin drip. Urine culture showing no growth, patient elected have UTI and will stop antibiotic. Chest x-ray still showing congestive heart failure. Patient continue on Lasix 40 mg twice a day and imdur daily. 12/07/2018 Patient still improving regarding her dyspnea. No chest pain or coughing. No other new complaint. Patient is going for a KANDACE as per outplacement consultant recommendation for the evaluation of the aortic valve regurgitation.creatinine stable at 1.5. Her sugar is controlled 120-169.she did not get insulin daily. repeat chest x-ray shows similar congestive heart failure with pleural effusion.her heparin drip was stopped and she is currently on by mouth Lasix 40 mg twice a day. 12/08/2018 pt continue to do better today , with no much dyspnea , no chest pain , pt has KANDACE which showing sever AR, cardiology team are following the case slowly and pt might need surgical intervention , with coronary surgery angiography with active follow-up for placement and possible mitral valve repair. Creatinine today is 1.6. we will consult nephrology team CONSTITUTIONAL: No fever, no malaise, no fatigue. HEENT: No recent visual problems or hearing problems. Denied any sore throat. CARDIOVASCULAR: no syncope. PULMONARY: no hemoptysis. GASTROINTESTINAL: No diarrhea, no nausea, no vomiting, no abdominal pain. Normoactive bowel sounds. NEUROLOGICAL: No headaches, no weakness, no numbness. HEMATOLOGICAL: Denies any bleeding or petechiae. GENITOURINARY: Denies any burning micturition, frequency, or urgency. MUSCULOSKELETAL/RHEUMATOLOGICAL: Denies any joint pain, swelling, or any muscle pain. ENDOCRINE: Denies any polyuria or polydipsia. Medication: Aspirin, Lipitor, Coreg, ceftriaxone, Pepcid, Lasix, Neurontin, heparin, hydralazine, NovoLog, Narcan, nitroglycerin, Objective - Vital Signs Vital signs: Vital Signs Temp 98.6 F 12/08/18 07:45 Pulse 60 12/08/18 08:30 Resp 18 12/08/18 08:30 BP 113/45 12/08/18 07:45 Pulse Ox 96 12/08/18 07:45 Intake & Output 12/07/18 12/08/18 12/08/18 18:59 06:59 18:59 Intake Total 100 340 240 Output Total 0 Balance 100 340 240 Weight 69.5 kg Intake: IV 100 Intake, IV Titration 100 Amount IV Fluid Continuation 500 100 ml @ 0 mls/hr IV .STSilentium- [facility] Rx#:[id number] Oral 240 240 Output: Urine 0 Other: Voiding Method Toilet Toilet Toilet # Voids 2 2 1 # Bowel Movements 1 1 1 - Exam GENERAL: The patient is alert and oriented x3, not in any acute distress. Well developed, well nourished. HEENT: Pupils are round and equally reacting to light. EOMI. No scleral icterus. No conjunctival pallor. Normocephalic, atraumatic. No pharyngeal erythema. No thyromegaly. CARDIOVASCULAR: S1 and S2 present. No murmurs, rubs, or gallops. -PULMONARY: Chest is clear to auscultation, no wheezing . Bilateral inspiratory crackles. ABDOMEN: Soft, nontender, nondistended, normoactive bowel sounds. No palpable organomegaly. MUSCULOSKELETAL: No joint swelling or deformity. -EXTREMITIES: No cyanosis, clubbing, . Bilateral pitting leg edema NEUROLOGICAL: Gross neurological examination did not reveal any focal deficits. SKIN: No rashes. - Labs CBC & Chem 7: 12/06/18 04:27 12/08/18 05:19 Labs: Abnormal Lab Results - Last 24 Hours (Table) 12/07/18 12/07/18 12/07/18 Range/Units 12:02 16:44 20:38 BUN (7-17) mg/dL Creatinine (0.52-1.04) mg/dL Glucose (74-99) mg/dL POC Glucose (mg/dL) 161 H 199 H 181 H (75-99) mg/dL Calcium (8.4-10.2) mg/dL Phosphorus (2.5-4.5) mg/dL 12/08/18 12/08/18 Range/Units 05:19 05:56 BUN 25 H (7-17) mg/dL Creatinine 1.63 H (0.52-1.04) mg/dL Glucose 110 H (74-99) mg/dL POC Glucose (mg/dL) 122 H (75-99) mg/dL Calcium 7.6 L (8.4-10.2) mg/dL Phosphorus 5.4 H (2.5-4.5) mg/dL Assessment and Plan Assessment: acute congestive heart failure, systolic with EF 35-40% Elevated troponin. unlikely non-STEMI. Aortic regurgitation Expected hypertension and hypertensive emergency on admission. Improved Elevated d-dimer. Bilateral leg swelling. History of diabetes mellitus Hyperlipidemia Essential hypertension History of aortic valve replacement with bovine valve History of COPD Plan: This is a pleasant 78 years old female who presents because of congestive heart failure . we will call nephrology team prior to cardiac cath and valve repair/ replacement Continue with diuretics. Labs and medication were reviewed.. Continue same treatment. Continue with symptomatic treatment. Resume home medication. Monitor lytes and vitals. DVT and GI prophylaxis. Further recommendations of the clinical course of the patient DVT prophylaxis: heparin GI Prophylaxis: Pepcid PT/OT: Pending Prognosis is guarded
--- NOTE | 2018-12-08 11:39 | PN ---
PROGRESS NOTE Mrs. Chowdary is a 78-year-old female who presented with congestive heart failure and was found to have by KANDACE severe aortic regurgitation with small function of her bioprosthetic aortic valve. She is feeling better today. She is still mildly dyspneic. She denies any chest pain. She denies any dizziness or palpitation. She denies any nausea. She continues to be on aspirin 81 mg daily, Lipitor 40 mg daily, Coreg 6.5 mg twice a day, furosemide 40 mg twice a day, hydralazine 50 mg 3 times a day, isosorbide mononitrate 30 mg daily. PHYSICAL EXAMINATION: Blood pressure 113/45 with a heart rate in the 60s. LUNGS: Clear. HEART: Regular rate and rhythm, S1, S2 with a systolic ejection murmur and diastolic murmur at the apex. No rub. ABDOMEN: Soft, nontender. EXTREMITIES: No edema. LAB DATA: Revealed BUN and creatinine 25 and 1.63, potassium 4.3. IMPRESSION: 1. Acute pulmonary edema and congestive heart failure related to malfunction of her bioprosthetic aortic valve with severe aortic regurgitation. 2. Hypertension. 3. Chronic kidney disease. Her baseline BUN and creatinine is not available to me. RECOMMENDATION: From the cardiac standpoint, will continue present therapy, increase her level activity. If she is stable, she may be able to be discharged home, but she will need to be admitted electively to undergo cardiac catheterization prior to redo aortic valve replacement and probable mitral valve repair. I have discussed those finding with the patient. MMODL / IJN: [id number] /
[2018-12-08] MEDS: HEPARIN SODIUM,PORCINE 5,000 UNIT/ML 1 ML VIAL SQ SCH ×2 (14:04→20:17)
--- NOTE | 2018-12-08 15:32 | P.PN ---
Subjective Progress Note Date: 12/07/18 Principal diagnosis: Acute hypoxemic respiratory failure secondary to systolic congestive heart failure This is 78-year-old white female patient with past medical history of retention , hyperlipidemia, diabetes, nicotine dependence, history of aortic valve replacement with a bioprosthetic valve 8 years ago at [facility], history of subclavian stenting in the past, chronic iron deficiency anemia. Patient presented to the hospital with symptoms of progressive shortness of breath over the course of 7 days prior to admission and worsening lower extremity edema. Patient denied any chest discomfort. She initially went to [facility], and she was transferred to this hospital. Her d-dimer came back elevated at 3.8 , white blood cell count was 8.8, hemoglobin is 10.6, platelet count was 114, BUN was 18, creatinine was 1.4. There was a mild troponin elevation, proBNP level 4169. She denied any fever or chills, denied any cough or congestion. At this hospital repeat blood work revealed troponins of 0.31, 0.23. Patient was hypertensive, with a blood pressure 187/74, EKG revealed normal sinus rhythm with a right bundle branch block, and nonspecific ST and T-wave abnormalities. Chest x-ray showed bilateral pleural effusions, and the patient was given IV Lasix. During the course of the day on 12/04/2018 patient started experiencing significantly worsening shortness of breath, rapid response team was called, patient was placed on BiPAP support with pressure of 10 and 5 and FiO2 100%. She was given additional 80 mg of IV Lasix, she was quiet diaphoretic, tachypneic, and hypotensive with a systolic blood pressure in the 200s. He was seen by cardiology at the bedside, and we evaluated the patient at the bedside, and patient was moved to the intensive care unit for closer monitoring. The echocardiogram showed paradoxical dyssynergy septal motion consistent with postoperative status, moderate concentric left ventricular hypertrophy, left ventricular systolic function was moderately impaired with an EF between 35-40%, there was [id number] aortic regurgitation, with a normally functioning bioprosthetic valve and there was no regurgitation of the bioprosthetic aortic valve noted. There was moderate pulmonary hypertension with right-sided pressures of 59 mmHg, in moderate tricuspid regurgitation. There was [id number] mitral regurgitation. Chest x-ray showed pulmonary edema, patient is seen again in follow-up in the intensive care unit, her FiO2 is currently down to 40%, she is awake and alert, a trial of nasal cannula was given, but patient was quite tachypneic, and had to be placed back on BiPAP support. She is starting to diurese, so far she had made over 500 mL of urine after the IV Lasix, she has been put on maintenance dose of IV Lasix of 40 mg every 12 hours, which will increase to every 8 hours. She remains quite hypertensive, she was started on oral Coreg, and we will initiate IV nitroglycerin drip. Patient was reevaluated today on 12/05/2018, she remains in the ICU, remains on BiPAP, however I switch her today from BiPAP to a nasal cannula. Patient remains on diuretics, and she responded well to Lasix 40 mg IV push every 8 hours. Remains on nitroglycerin drip, and her blood pressure medications are being addressed by cardiology on the case. She is on heparin, there is no slight index of suspicion for pulmonary embolism, no need for VQ scan. Heparin was started mostly because of her acute cardiac presentation. And if not needed , can be discontinued by cardiology. Her echocardiogram is quite abnormal and showed significant abnormalities including elevated dysfunction, aortic regurgitation, and mitral regurgitation. There is also evidence of pulmonary hypertension related to her valvular heart disease. Again my index of suspicion for pulmonary embolism is extremely low and a VQ scan will be worthless and of no value anyway. Overall the patient is feeling better, breathing a lot easier, and I proceeded to switch her from BiPAP to a nasal cannula, likely will be tolerated well. Creatinine was noted to be a bit worse today, hence I would likely cut down on the Lasix from 40 mg every 8 hours to 40 mg every 12 hours. Chest x-ray this morning continues to show some evidence of central vascular congestion and interstitial edema. Hydralazine was increased by cardiology, and amlodipine will be discontinued. She will be switched from IV nitroglycerin to Nitropaste. 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 Vega. Considering possible surgical intervention on her aortic valve. Patient was reevaluated today in the ICU on 12/06/2018, she is now on nasal cannula for the last 24 hours. Remains on Lasix 40 mg IV push every 8 hours, she is also on Coreg, hydralazine, and IV heparin. Patient is doing well, relatively asymptomatic, no cough no wheezing no shortness of breath and no chest pain. Chest x-ray continues to show mild congestive heart failure changes. Labs showed relatively normal CBC however hemoglobin is 9.7. PTT is therapeutic. Electrolytes are normal BUN is 25 creatinine 1.59 her baseline creatinine on admission was 1.35. Clinically however the patient is feeling better, breathing a lot easier. She is -1.2 L over the last 24 hours. On 12/07/2018 patient seen in follow-up on selective care unit. She is awake and alert, in no acute distress, denies any chest pain, her breathing is improving. She is on 3 L per nasal cannula and her pulse ox is 97%, vital signs are stable, afebrile. Her diuretics have been transitioned to oral Lasix. She is maintaining negative fluid balance, -726 mL. Today's labs have been reviewed, serum sodium is 140, potassium is 3.9, chloride is 105, CO2 is 31 , BUN is 22 creatinine is 1.56. Patient underwent a transesophageal echocardiogram which showed severe aortic valve regurgitation. Objective - Vital Signs Vital signs: Vital Signs Temp 98.2 F 12/07/18 04:05 Pulse 59 L 12/07/18 08:03 Resp 18 12/07/18 08:03 BP 123/60 12/07/18 08:03 Pulse Ox 97 12/07/18 08:03 Intake & Output 12/06/18 12/07/18 12/07/18 18:59 06:59 18:59 Intake Total 50 0 100 Output Total 650 126 Balance -600 -126 100 Weight 64.1 kg 68.3 kg Intake: IV 50 0 100 0.9 normal saline 50 0 Output: Urine 650 126 Other: Voiding Method Indwelling Catheter Toilet # Voids 1 # Bowel Movements 1 - Exam GENERAL EXAM: Alert, pleasant, 78-year-old white female, on 3 L per nasal cannula with pulse ox of 97%, comfortable in no apparent distress. HEAD: Normocephalic/atraumatic. EYES: Normal reaction of pupils, equal size. Conjunctiva pink, sclera white. NOSE: Clear with pink turbinates. THROAT: No erythema or exudates. NECK: No masses, no JVD, no thyroid enlargement, no adenopathy. CHEST: No chest wall deformity. Symmetrical expansion. LUNGS: Equal air entry with diminished breath sounds, bibasilar crackles CVS: Regular rate and rhythm, normal S1 and S2, no gallops, no murmurs, no rubs. 3/6 systolic murmur in the right second intercostal space the right sternal border, and2/6 systolic murmur in the fourth left intercostal space at the sternal border ABDOMEN: Soft, nontender. No hepatosplenomegaly, normal bowel sounds, no guarding or rigidity. EXTREMITIES: No clubbing, 1+ lower extremity edema no cyanosis, 2+ pulses and upper and lower extremities. MUSCULOSKELETAL: Muscle strength and tone normal. SPINE: No scoliosis or deformity SKIN: No rashes CENTRAL NERVOUS SYSTEM: Alert and oriented -3. No focal deficits, tone is normal in all 4 extremities. PSYCHIATRIC: Alert and oriented -3. Appropriate affect. Intact judgment and insight. - Labs CBC & Chem 7: 12/06/18 04:27 12/07/18 05:28 Labs: Abnormal Lab Results - Last 24 Hours (Table) 12/06/18 12/06/18 12/06/18 Range/Units 12:08 16:59 21:16 Carbon Dioxide (22-30) mmol/L BUN (7-17) mg/dL Creatinine (0.52-1.04) mg/dL Glucose (74-99) mg/dL POC Glucose (mg/dL) 155 H 129 H 169 H (75-99) mg/dL Calcium (8.4-10.2) mg/dL Phosphorus (2.5-4.5) mg/dL 12/07/18 12/07/18 Range/Units 05:28 05:40 Carbon Dioxide 31 H (22-30) mmol/L BUN 22 H (7-17) mg/dL Creatinine 1.56 H (0.52-1.04) mg/dL Glucose 132 H (74-99) mg/dL POC Glucose (mg/dL) 151 H (75-99) mg/dL Calcium 7.8 L (8.4-10.2) mg/dL Phosphorus 4.9 H (2.5-4.5) mg/dL Assessment and Plan Plan: Assessment: #1. Acute hypoxemic respiratory failure related to acute exacerbation of congestive heart failure with systolic dysfunction #2. Hypertensive emergency, improved. #3. Acute kidney injury, possibly due to cardiorenal syndrome #4. Valvular heart disease, status post aortic valve replacement with a bioprosthetic valve. Transesophageal echocardiogram revealed severe aortic valve regurgitation #5. Moderate pulmonary hypertension #6. Elevated troponins suggesting non-ST elevated [place] #7. Hypertension, hyperlipidemia, diabetes mellitus type 2 #8. Former nicotine dependence, quit smoking in October 2018 #9. Elevated d-dimer, ultrasound Dopplers of the lower extremities are negative for DVT, index of suspicion for pulmonary embolism is quite low #10. Chronic iron deficiency anemia Plan: Continue diuretics per cardiology recommendations. The results of the transesophageal echocardiogram were noted and the recommendations from cardiology has been noted and appreciated. Patient will likely need aortic valve replacement. May utilize BiPAP on as-needed basis. She is maintaining negative fluid balance, has been transitioned to oral Lasix. Today's chest x- ray has been reviewed with Dr. Hooper, and shows persistence of bibasilar airspace disease, atelectasis. I performed a history & physical examination of the patient and discussed their management with my nurse practitioner, Arabella Strange. I reviewed the nurse practitioner's note and agree with the documented findings and plan of care. Lung sounds are positive for diffuse crackles. The findings and the impression was discussed with the patient. I attest to the documentation by the nurse practitioner.
--- NOTE | 2018-12-08 15:36 | P.PN ---
Subjective Progress Note Date: 12/08/18 Principal diagnosis: Acute hypoxemic respiratory failure secondary to systolic congestive heart failure This is 78-year-old white female patient with past medical history of retention , hyperlipidemia, diabetes, nicotine dependence, history of aortic valve replacement with a bioprosthetic valve 8 years ago at [facility], history of subclavian stenting in the past, chronic iron deficiency anemia. Patient presented to the hospital with symptoms of progressive shortness of breath over the course of 7 days prior to admission and worsening lower extremity edema. Patient denied any chest discomfort. She initially went to [facility], and she was transferred to this hospital. Her d-dimer came back elevated at 3.8 , white blood cell count was 8.8, hemoglobin is 10.6, platelet count was 114, BUN was 18, creatinine was 1.4. There was a mild troponin elevation, proBNP level 4169. She denied any fever or chills, denied any cough or congestion. At this hospital repeat blood work revealed troponins of 0.31, 0.23. Patient was hypertensive, with a blood pressure 187/74, EKG revealed normal sinus rhythm with a right bundle branch block, and nonspecific ST and T-wave abnormalities. Chest x-ray showed bilateral pleural effusions, and the patient was given IV Lasix. During the course of the day on 12/04/2018 patient started experiencing significantly worsening shortness of breath, rapid response team was called, patient was placed on BiPAP support with pressure of 10 and 5 and FiO2 100%. She was given additional 80 mg of IV Lasix, she was quiet diaphoretic, tachypneic, and hypotensive with a systolic blood pressure in the 200s. He was seen by cardiology at the bedside, and we evaluated the patient at the bedside, and patient was moved to the intensive care unit for closer monitoring. The echocardiogram showed paradoxical dyssynergy septal motion consistent with postoperative status, moderate concentric left ventricular hypertrophy, left ventricular systolic function was moderately impaired with an EF between 35-40%, there was [id number] aortic regurgitation, with a normally functioning bioprosthetic valve and there was no regurgitation of the bioprosthetic aortic valve noted. There was moderate pulmonary hypertension with right-sided pressures of 59 mmHg, in moderate tricuspid regurgitation. There was [id number] mitral regurgitation. Chest x-ray showed pulmonary edema, patient is seen again in follow-up in the intensive care unit, her FiO2 is currently down to 40%, she is awake and alert, a trial of nasal cannula was given, but patient was quite tachypneic, and had to be placed back on BiPAP support. She is starting to diurese, so far she had made over 500 mL of urine after the IV Lasix, she has been put on maintenance dose of IV Lasix of 40 mg every 12 hours, which will increase to every 8 hours. She remains quite hypertensive, she was started on oral Coreg, and we will initiate IV nitroglycerin drip. Patient was reevaluated today on 12/05/2018, she remains in the ICU, remains on BiPAP, however I switch her today from BiPAP to a nasal cannula. Patient remains on diuretics, and she responded well to Lasix 40 mg IV push every 8 hours. Remains on nitroglycerin drip, and her blood pressure medications are being addressed by cardiology on the case. She is on heparin, there is no slight index of suspicion for pulmonary embolism, no need for VQ scan. Heparin was started mostly because of her acute cardiac presentation. And if not needed , can be discontinued by cardiology. Her echocardiogram is quite abnormal and showed significant abnormalities including elevated dysfunction, aortic regurgitation, and mitral regurgitation. There is also evidence of pulmonary hypertension related to her valvular heart disease. Again my index of suspicion for pulmonary embolism is extremely low and a VQ scan will be worthless and of no value anyway. Overall the patient is feeling better, breathing a lot easier, and I proceeded to switch her from BiPAP to a nasal cannula, likely will be tolerated well. Creatinine was noted to be a bit worse today, hence I would likely cut down on the Lasix from 40 mg every 8 hours to 40 mg every 12 hours. Chest x-ray this morning continues to show some evidence of central vascular congestion and interstitial edema. Hydralazine was increased by cardiology, and amlodipine will be discontinued. She will be switched from IV nitroglycerin to Nitropaste. 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 Vega. Considering possible surgical intervention on her aortic valve. Patient was reevaluated today in the ICU on 12/06/2018, she is now on nasal cannula for the last 24 hours. Remains on Lasix 40 mg IV push every 8 hours, she is also on Coreg, hydralazine, and IV heparin. Patient is doing well, relatively asymptomatic, no cough no wheezing no shortness of breath and no chest pain. Chest x-ray continues to show mild congestive heart failure changes. Labs showed relatively normal CBC however hemoglobin is 9.7. PTT is therapeutic. Electrolytes are normal BUN is 25 creatinine 1.59 her baseline creatinine on admission was 1.35. Clinically however the patient is feeling better, breathing a lot easier. She is -1.2 L over the last 24 hours. On 12/07/2018 patient seen in follow-up on selective care unit. She is awake and alert, in no acute distress, denies any chest pain, her breathing is improving. She is on 3 L per nasal cannula and her pulse ox is 97%, vital signs are stable, afebrile. Her diuretics have been transitioned to oral Lasix. She is maintaining negative fluid balance, -726 mL. Today's labs have been reviewed, serum sodium is 140, potassium is 3.9, chloride is 105, CO2 is 31 , BUN is 22 creatinine is 1.56. Patient underwent a transesophageal echocardiogram which showed severe aortic valve regurgitation. On 12/08/2018 patient seen in follow-up on selective care unit. The abdomen the recliner, in no acute distress, did not require BiPAP last night, Ativan 3 L per nasal cannula pulse ox 99%, some chest pain, no worsening dyspnea. Continues on oral diuretics, doing well. Today's labs showed normal electrolytes, BUN 25 and creatinine of 1.63. Objective - Vital Signs Vital signs: Vital Signs Temp 96.9 F L 12/08/18 12:00 Pulse 76 12/08/18 12:00 Resp 16 12/08/18 12:15 BP 134/58 12/08/18 12:00 Pulse Ox 99 12/08/18 12:00 Intake & Output 12/07/18 12/08/18 12/08/18 18:59 06:59 18:59 Intake Total 100 340 480 Output Total 0 Balance 100 340 480 Weight 69.5 kg Intake: IV 100 Intake, IV Titration 100 Amount IV Fluid Continuation 500 100 ml @ 0 mls/hr IV .STK- [facility] Rx#:[id number] Oral 240 480 Output: Urine 0 Other: Voiding Method Toilet Toilet Toilet # Voids 2 2 1 # Bowel Movements 1 1 1 - Exam GENERAL EXAM: Alert, pleasant, 78-year-old white female, on 3 L per nasal cannula with pulse ox of 97%, comfortable in no apparent distress. HEAD: Normocephalic/atraumatic. EYES: Normal reaction of pupils, equal size. Conjunctiva pink, sclera white. NOSE: Clear with pink turbinates. THROAT: No erythema or exudates. NECK: No masses, no JVD, no thyroid enlargement, no adenopathy. CHEST: No chest wall deformity. Symmetrical expansion. LUNGS: Equal air entry with diminished breath sounds, bibasilar crackles CVS: Regular rate and rhythm, normal S1 and S2, no gallops, no murmurs, no rubs. 3/6 systolic murmur in the right second intercostal space the right sternal border, and2/6 systolic murmur in the fourth left intercostal space at the sternal border ABDOMEN: Soft, nontender. No hepatosplenomegaly, normal bowel sounds, no guarding or rigidity. EXTREMITIES: No clubbing, 1+ lower extremity edema no cyanosis, 2+ pulses and upper and lower extremities. MUSCULOSKELETAL: Muscle strength and tone normal. SPINE: No scoliosis or deformity SKIN: No rashes CENTRAL NERVOUS SYSTEM: Alert and oriented -3. No focal deficits, tone is normal in all 4 extremities. PSYCHIATRIC: Alert and oriented -3. Appropriate affect. Intact judgment and insight. - Labs CBC & Chem 7: 12/06/18 04:27 12/08/18 05:19 Labs: Abnormal Lab Results - Last 24 Hours (Table) 12/07/18 12/07/18 12/08/18 Range/Units 16:44 20:38 05:19 BUN 25 H (7-17) mg/dL Creatinine 1.63 H (0.52-1.04) mg/dL Glucose 110 H (74-99) mg/dL POC Glucose (mg/dL) 199 H 181 H (75-99) mg/dL Calcium 7.6 L (8.4-10.2) mg/dL Phosphorus 5.4 H (2.5-4.5) mg/dL 12/08/18 12/08/18 Range/Units 05:56 11:20 BUN (7-17) mg/dL Creatinine (0.52-1.04) mg/dL Glucose (74-99) mg/dL POC Glucose (mg/dL) 122 H 154 H (75-99) mg/dL Calcium (8.4-10.2) mg/dL Phosphorus (2.5-4.5) mg/dL Assessment and Plan Plan: Assessment: #1. Acute hypoxemic respiratory failure related to acute exacerbation of congestive heart failure with systolic dysfunction #2. Hypertensive emergency, improved. #3. Acute kidney injury, possibly due to cardiorenal syndrome #4. Valvular heart disease, status post aortic valve replacement with a bioprosthetic valve. Transesophageal echocardiogram revealed severe aortic valve regurgitation #5. Moderate pulmonary hypertension #6. Elevated troponins suggesting non-ST elevated [place] #7. Hypertension, hyperlipidemia, diabetes mellitus type 2 #8. Former nicotine dependence, quit smoking in October 2018 #9. Elevated d-dimer, ultrasound Dopplers of the lower extremities are negative for DVT, index of suspicion for pulmonary embolism is quite low #10. Chronic iron deficiency anemia Plan: Continue current plan of treatment, she is doing well, did not require BiPAP support last night. Maintaining good oxygenation on 3 L per nasal cannula. No complaints of chest pain noted worsening dyspnea. Slightly worsened renal profile today. Clinically she is improving. I performed a history & physical examination of the patient and discussed their management with my nurse practitioner, Arabella Strange. I reviewed the nurse practitioner's note and agree with the documented findings and plan of care. Lung sounds are positive for diffuse crackles. The findings and the impression was discussed with the patient. I attest to the documentation by the nurse practitioner. Time with Patient: Less than 30
[2018-12-08 16:31] LABS: Glucose,Whole Blood 147 mg/dL (75-99)
[2018-12-08 20:51] LABS: Glucose,Whole Blood 190 mg/dL (75-99)
[2018-12-09 05:54] LABS: Glucose,Whole Blood 125 mg/dL (75-99)
[2018-12-09] MEDS: INSULIN ASPART (NovoLOG) 100 UNIT/ML VIAL SQ SCH ×4 (06:01→20:40)
[2018-12-09] MEDS: CARVEDILOL 6.25 MG TAB PO SCH ×2 (06:31→17:11)
[2018-12-09 06:59] LABS: Calcium 8.2 mg/dL (8.4-10.2); Magnesium 1.7 mg/dL (1.6-2.3); Phosphorus 4.9 mg/dL (2.5-4.5); Potassium 4.6 mmol/L (3.5-5.1)
[2018-12-09] MEDS: GABAPENTIN 300 MG CAP PO SCH ×3 (08:10→20:40)
[2018-12-09] MEDS: ATORVASTATIN 40 MG TAB PO SCH (08:10)
[2018-12-09] MEDS: ISOSORBIDE MONONITRATE ER 30 MG TAB.ER.24H PO SCH (08:10)
[2018-12-09] MEDS: FUROSEMIDE 40 MG TAB PO SCH (08:10)
[2018-12-09] MEDS: FAMOTIDINE 20 MG TAB PO SCH (08:10)
[2018-12-09] MEDS: HEPARIN SODIUM,PORCINE 5,000 UNIT/ML 1 ML VIAL SQ SCH ×2 (08:10→20:40)
[2018-12-09] MEDS: ASPIRIN 81 MG PO SCH (08:10)
[2018-12-09] MEDS: hydrALAZINE HCL 50 MG TAB PO SCH ×3 (08:10→20:40)
--- NOTE | 2018-12-09 10:34 | P.PN ---
Subjective Progress Note Date: 12/09/18 This is a 78-year-old female with history of hypertension, diabetes, hyperlipidemia, nicotine dependence, patient states she quit smoking in October of this year, history of aortic valve replacement with a bovine aortic valve approximately 8 years ago at [facility], she follows with Dr. Sarah cao as her primary doctor. Patient also states that she's had subclavian stenting in the past. She also states that she has a history of iron deficiency anemia for which she takes iron. She presents to my hospital with symptoms of a seven-day duration of progressively worsening shortness of breath, patient also states about that time she noticed lower extremity edema. She denies any chest discomfort. Laboratory data at [facility] been reviewed, d-dimer came back to be 3.8, white blood cell count 8.8, hemoglobin 10.6, platelet count 11.4 , sodium 138, potassium 4.7, BUN 18 and creatinine 1.4. Troponin 0.11, BNP level 4169. Patient was transferred to [facility] for further evaluation and treatment. Laboratory data on arrival here, white blood cell count 5.6, hemoglobin 10.0, platelet count 180. Sodium 139, potassium 5.0, BUN 21 and creatinine 1.3, glucose 273. Troponins here 0.31 and 0.23. Blood pressure on arrival here 187/74 with heart rate in the 90s, 91% on room air. EKG at [facility] showed a normal sinus rhythm with right bundle branch block pattern, nonspecific ST-T wave changes. EKG performed on arrival here showed normal sinus rhythm with first-degree AV block. Chest x-ray performed showed bilateral pleural effusions, she was given a 40 mg dose of IV Lasix. At the time of my examination this morning, patient still complains of feeling slightly short of breath, she states that she did put out a significant amount of urine and the swelling in her legs has improved a lot since her admission here. We will give the patient IV Lasix here and obtain an echocardiogram with Doppler study. Her Altace has currently been placed on hold because of abnormal renal function and potassium of 5.0. We'll resume her Lipitor, we will start the patient on a beta beatrice, to optimize blood pressure control. 12/09/2018 Patient seen and examined this morning, overall feeling much better. Still has some mild shortness of breath. Denies any chest pain. Creatinine is up to 1.8 today. The plan initially was that the patient be discharged home, see Dr. Vega in the office, and return later for cardiac catheterization, initially this was being deferred somewhat because of the worsening renal function. The patient was quite concerned this morning that she may not have transportation to return to her office visit and back to the hospital. I did speak with Dr. Vega this morning, we will monitor her renal function closely, if it improves we will tentatively book her for a cardiac cath on at 7:30 on Tuesday morning. Objective - Vital Signs Vital signs: Vital Signs Temp 96.6 F L 12/09/18 08:05 Pulse 76 12/09/18 08:05 Resp 16 12/09/18 08:05 BP 99/48 12/09/18 08:05 Pulse Ox 96 12/09/18 08:05 Intake & Output 12/08/18 12/09/18 12/09/18 18:59 06:59 18:59 Intake Total 720 360 Output Total 800 Balance -80 360 Weight 70.2 kg Intake: Oral 720 360 Output: Urine 800 Other: Voiding Method Toilet Toilet # Voids 1 1 # Bowel Movements 1 - Exam PHYSICAL EXAMINATION: GENERAL: 78-year-old female, pale in color, in no acute distress at the time of my examination HEENT: Head is atraumatic, normocephalic. Pupils equal, round. Sclera anicteric. Conjunctiva are clear. Mucous membranes of the mouth are moist. Neck is supple. There is no elevated jugular venous pressure. No carotid bruit is heard. HEART EXAMINATION: Heart S1 S2 1 systolic ejection murmur is heard. CHEST EXAMINATION: Lungs reveal diminished air entry to bilateral bases. ABDOMEN: Soft, nontender. Bowel sounds are heard. No organomegaly noted. EXTREMITIES: 2+ peripheral pulses with trace to 1+ evidence of peripheral edema.. NEUROLOGIC patient is awake, alert and oriented 3 . - Labs CBC & Chem 7: 12/06/18 04:27 12/09/18 05:51 Labs: Abnormal Lab Results - Last 24 Hours (Table) 12/08/18 12/08/18 12/08/18 Range/Units 11:20 16:26 20:49 BUN (7-17) mg/dL Creatinine (0.52-1.04) mg/dL Glucose (74-99) mg/dL POC Glucose (mg/dL) 154 H 147 H 190 H (75-99) mg/dL Calcium (8.4-10.2) mg/dL Phosphorus (2.5-4.5) mg/dL 12/09/18 12/09/18 Range/Units 05:51 05:53 BUN 28 H (7-17) mg/dL Creatinine 1.89 H (0.52-1.04) mg/dL Glucose 117 H (74-99) mg/dL POC Glucose (mg/dL) 125 H (75-99) mg/dL Calcium 8.2 L (8.4-10.2) mg/dL Phosphorus 4.9 H (2.5-4.5) mg/dL Assessment and Plan Plan: Assessment and plan #1 symptoms of one week duration of shortness of breath with lower extremity edema, evidence of congestive cardiac failure with elevated BNP level. LV function unknown. #2 history of aortic valve replacement 8 years ago with a bovine valve, valve failure with severe AI #3 diabetes #4 hyperlipidemia #5 accelerated hypertension #6 nicotine dependence, patient states she quit smoking in October #7 COPD #8 elevated d-dimer, rule out possibility of PE #9 anemia #10 abnormal troponins, 0.12, 0.31, 0.23, not suggestive of acute coronary syndrome, could be secondary to supply and demand mismatch. Patient denies having any chest discomfort. Plan At this point in time we will continue the patient on her current medications. Monitor renal function daily. Plan for cardiac catheterization on Tuesday at 7: 30 if renal function improves. DNP note has been reviewed, I agree with a documented findings and plan of care. Patient was seen and examined.
[2018-12-09] MEDS ORDERED: ASPIRIN 325 MG TAB PO STA (10:35)
[2018-12-09] MEDS ORDERED: NITROGLYCERIN SL TABS 0.4 MG TAB SUBLINGUAL PRN (10:35)
[2018-12-09] MEDS ORDERED: ATORVASTATIN 80 MG TAB PO STA (10:35)
[2018-12-09] MEDS ORDERED: ALPRAZolam 0.25 MG TAB PO PRN (10:35)
[2018-12-09] MEDS ORDERED: SODIUM CHLORIDE 0.9% 1,000 ML in EMPTY BAG 1 BAG IV ONE (10:35)
[2018-12-09] MEDS ORDERED: ALPRAZolam 0.5 MG TAB PO PRN (10:35)
[2018-12-09 11:37] LABS: Glucose,Whole Blood 315 mg/dL (75-99)
--- NOTE | 2018-12-09 15:22 | CONS ---
CONSULTATION REASON FOR CONSULT: Renal failure. HISTORY OF PRESENT ILLNESS: The patient is a 78-year-old female who was admitted to the hospital initially on 12/04/2018 with complaints of increased lower extremity edema, shortness of breath and chest pressure. The patient was treated for CHF and fluid overload and she was diuresed. She states she is feeling much better now. Serum creatinine was 1.35 on initial admission. It is up to 1.89 now. Lasix has being changed to 40 mg p.o. b.i.d., currently. The patient denies use of any nonsteroidal anti-inflammatory agents. Her blood pressure has occasionally been on the lower side with systolic as low as 99 earlier today. The patient had been on ALEIDA inhibitors prior to admission which are currently on hold. PAST MEDICAL HISTORY: Hypertension, coronary artery disease, type 2 diabetes, hyperlipidemia, chronic kidney disease. The patient was evaluated at our office about 4 or 5 years ago, apparently renal function improved and she did not come back for followup. PAST SURGICAL HISTORY: Bariatric surgery, coronary artery bypass surgery, aortic valve replacement, left carotid endarterectomy. SOCIAL HISTORY: Patient is a former smoker. No history of drug abuse or alcohol abuse. MEDICATIONS: Prior to admission included aspirin, Lipitor, Celexa, vitamin D2, iron, Lasix, Neurontin, multivitamins, Altace, Co-Q10, Norvasc. ALLERGIES: None. PHYSICAL EXAMINATION: Patient is comfortable, awake, alert, and oriented x3. She is not in any acute distress. Blood pressure was 144/50, previous blood pressure was 99/48, heart rate 67 per minute. Patient is afebrile. Examination of the heart S1, S2. Examination of lungs bilateral breath sounds are heard. Abdomen is soft, nontender. Exam of lower extremities shows no evidence of edema. AGED OR DISABLED CARER exam is grossly intact. LAB: Show sodium 138, potassium 4.6, BUN 28, serum creatinine 1.89, phosphorus 4.9, magnesium 1.7. UA shows 1+ protein, moderate blood, WBC 7, RBCs 103 on December 04. ASSESSMENT: 1. Acute kidney injury, most likely related to recent diuresis. Volume status has improved significantly since admission. Last chest x-ray done on December 07 shows persistent evidence of underlying CHF. Currently, patient is maintained on oral Lasix. I will repeat a chest x-ray today and consider decreasing the Lasix to once a day. The UA does show evidence of proteinuria. This will need to be worked up. 2. Chronic kidney disease. Previous labs not available for comparison, most likely stage III. Previous creatinine was 1.35 on initial admission. Etiology is likely diabetic nephropathy given the proteinuria. 3. Dyslipidemia. 4. History of aortic valve replacement. 5. Congestive heart failure, acute on chronic. LV function not known at this time. 6. Severe AI with previous history of bovine valve replacement. 7. Cardiomyopathy, ejection fraction 35-40 percent. 8. Congestive heart failure, acute on top of chronic mainly systolic. PLAN: Decrease Lasix. Repeat chest x-ray. Repeat labs in a.m. Avoid hypotension. Repeat UA as well. Thank you for this consultation. We will continue to follow the patient with you during her hospitalization. MMKARLOSL / IJN: [id number] /
--- NOTE | 2018-12-09 15:29 | XR ---
EXAMINATION TYPE: XR chest 2V DATE OF EXAM: 12/09/2018 COMPARISON: 12/07/2018 HISTORY: Short of breath TECHNIQUE: Frontal and lateral views of the chest are obtained. FINDINGS: There is blunting of the costophrenic angles. Heart size is normal. There are sternal wire s. There are no hilar masses. Bony thorax is intact. There is osteopenia. IMPRESSION: Small pleural effusions. No heart failure seen. Pleural fluid is probably improved ana red to last exam. Pulmicort congestion improved compared to last exam.
[2018-12-09 16:35] LABS: Glucose,Whole Blood 94 mg/dL (75-99)
[2018-12-09 18:33] LABS: Appearance,Urine Clear (Clear); Bilirubin,Urine Negative (Negative); Blood,Urine Negative (Negative); Color,Urine Light Yellow; Glucose,Urine (UA) Negative (Negative); Ketones,Urine Negative (Negative); Leukocyte Esterase,Urine Negative (Negative); Nitrite,Urine Negative (Negative); Protein,Urine Trace (Negative); Specific Gravity,Urine 1.005 (1.001-1.035); Urobilinogen,Urine <2.0 mg/dL (<2.0)
--- NOTE | 2018-12-09 18:42 | P.PN ---
Subjective This is a pleasant 78 years old female with past medical history of coronary artery disease, hypertension, hyperlipidemia, diabetes mellitus, status post bariatric surgery and aortic valve replacement. She presents because of dyspnea over 7 days which was getting worse not associated with cough or chest pain. He has bilateral leg swelling. Patient's vitals are reviewed. Her blood pressure on the high side 181/71. Saturating 96% on 2 L via NC. Patient is afebrile. CBC showing mild anemia 10. Creatinine is elevated at 1.35, with unknown baseline. Troponin elevated at 0.315 and 0.2-35[place] [address]. Patient has elevated d- dimer 3.8 and cardiology or the recommended VQ scan and echocardiogram. As well as continue with Lasix and add beta beatrice. While Kamran inhibitor is on hold for elevated creatinine. Patient states that she doesn't have this pcp now. Patient was placed on heparin drip currently. 12/05/2018 Patient is seen today in the ICU. She was sitting in the chair and feels better. Her dyspnea is improving with no chest pain. Her blood pressure is controlled and she is of nitroglycerin drip. Vitas looks stable and she is saturating 98% on 5 L oxygen via nasal cannula. Leukocytosis resolved on WBC 9.1K. Creatinine is slightly elevated to 1.5, sugar is controlled. Patient was started on ceftriaxone yesterday for possible urinary tract infection, leukocytosis resolved today however urine culture still pending. Patient with no fever. Repeat chest x-ray from today showing CHF with bilateral pleural effusion and congestion. She still also on heparin drip. 12/06/2018 Patient seen and examined in the ICU. Her dyspnea is same as yesterday which is improved. No chest pain. Mild coughing. Blood pressure is stable. Rest of the vital signs stable as well. CBC unremarkable. Creatinine is similar to yesterday at 1.5. Patient is still on heparin drip. Urine culture showing no growth, patient elected have UTI and will stop antibiotic. Chest x-ray still showing congestive heart failure. Patient continue on Lasix 40 mg twice a day and imdur daily. 12/07/2018 Patient still improving regarding her dyspnea. No chest pain or coughing. No other new complaint. Patient is going for a KANDACE as per center consultant recommendation for the evaluation of the aortic valve regurgitation.creatinine stable at 1.5. Her sugar is controlled 120-169.she did not get insulin daily. repeat chest x-ray shows similar congestive heart failure with pleural effusion.her heparin drip was stopped and she is currently on by mouth Lasix 40 mg twice a day. 12/08/2018 pt continue to do better today , with no much dyspnea , no chest pain , pt has KANDACE which showing sever AR, cardiology team are following the case slowly and pt might need surgical intervention , with coronary surgery angiography with active follow-up for placement and possible mitral valve repair. Creatinine today is 1.6. we will consult nephrology team 12/09/18 pt is clinically stable and it was followed by cardiology team , plan for possible aortic valve repair and cardiac cath. CONSTITUTIONAL: No fever, no malaise, no fatigue. HEENT: No recent visual problems or hearing problems. Denied any sore throat. CARDIOVASCULAR: no syncope. PULMONARY: no hemoptysis. GASTROINTESTINAL: No diarrhea, no nausea, no vomiting, no abdominal pain. Normoactive bowel sounds. NEUROLOGICAL: No headaches, no weakness, no numbness. HEMATOLOGICAL: Denies any bleeding or petechiae. GENITOURINARY: Denies any burning micturition, frequency, or urgency. MUSCULOSKELETAL/RHEUMATOLOGICAL: Denies any joint pain, swelling, or any muscle pain. ENDOCRINE: Denies any polyuria or polydipsia. Medication: Aspirin, Lipitor, Coreg, ceftriaxone, Pepcid, Lasix, Neurontin, heparin, hydralazine, NovoLog, Narcan, nitroglycerin, Objective - Vital Signs Vital signs: Vital Signs Temp 97.5 F L 12/09/18 15:50 Pulse 64 12/09/18 15:50 Resp 16 12/09/18 15:50 BP 150/64 12/09/18 15:50 Pulse Ox 97 12/09/18 15:50 Intake & Output 12/08/18 12/09/18 12/09/18 18:59 06:59 18:59 Intake Total 720 840 Output Total 800 1100 Balance -80 -260 Weight 70.2 kg Intake: Oral 720 840 Output: Urine 800 1100 Other: Voiding Method Toilet Toilet # Voids 1 1 # Bowel Movements 1 - Exam GENERAL: The patient is alert and oriented x3, not in any acute distress. Well developed, well nourished. HEENT: Pupils are round and equally reacting to light. EOMI. No scleral icterus. No conjunctival pallor. Normocephalic, atraumatic. No pharyngeal erythema. No thyromegaly. CARDIOVASCULAR: S1 and S2 present. No murmurs, rubs, or gallops. -PULMONARY: Chest is clear to auscultation, no wheezing . Bilateral inspiratory crackles. ABDOMEN: Soft, nontender, nondistended, normoactive bowel sounds. No palpable organomegaly. MUSCULOSKELETAL: No joint swelling or deformity. -EXTREMITIES: No cyanosis, clubbing, . Bilateral pitting leg edema NEUROLOGICAL: Gross neurological examination did not reveal any focal deficits. SKIN: No rashes. - Labs CBC & Chem 7: 12/06/18 04:27 12/09/18 05:51 Labs: Abnormal Lab Results - Last 24 Hours (Table) 12/08/18 12/09/18 12/09/18 Range/Units 20:49 05:51 05:53 BUN 28 H (7-17) mg/dL Creatinine 1.89 H (0.52-1.04) mg/dL Glucose 117 H (74-99) mg/dL POC Glucose (mg/dL) 190 H 125 H (75-99) mg/dL Calcium 8.2 L (8.4-10.2) mg/dL Phosphorus 4.9 H (2.5-4.5) mg/dL Urine Protein (Negative) 12/09/18 12/09/18 Range/Units 11:22 16:55 BUN (7-17) mg/dL Creatinine (0.52-1.04) mg/dL Glucose (74-99) mg/dL POC Glucose (mg/dL) 315 H (75-99) mg/dL Calcium (8.4-10.2) mg/dL Phosphorus (2.5-4.5) mg/dL Urine Protein Trace H (Negative) Assessment and Plan Assessment: acute congestive heart failure, systolic with EF 35-40% Elevated troponin. unlikely non-STEMI. Aortic regurgitation Expected hypertension and hypertensive emergency on admission. Improved Elevated d-dimer. Bilateral leg swelling. History of diabetes mellitus Hyperlipidemia Essential hypertension History of aortic valve replacement with bovine valve History of COPD Plan: This is a pleasant 78 years old female who presents because of congestive heart failure . we will call nephrology team prior to cardiac cath and valve repair/ replacement Continue with diuretics. Labs and medication were reviewed.. Continue same treatment. Continue with symptomatic treatment. Resume home medication. Monitor lytes and vitals. DVT and GI prophylaxis. Further recommendations of the clinical course of the patient DVT prophylaxis: heparin GI Prophylaxis: Pepcid PT/OT: Pending Prognosis is guarded
[2018-12-09 20:34] LABS: Glucose,Whole Blood 169 mg/dL (75-99)
[2018-12-10 05:58] LABS: Glucose,Whole Blood 137 mg/dL (75-99)
[2018-12-10] MEDS: CARVEDILOL 6.25 MG TAB PO SCH ×2 (06:11→17:00)
[2018-12-10] MEDS: INSULIN ASPART (NovoLOG) 100 UNIT/ML VIAL SQ SCH ×4 (06:11→20:30)
[2018-12-10 06:41] LABS: Basophils % (A) 1 %; Eosinophils # (A) 0.5 k/uL (0-0.7); Eosinophils % (A) 9 %; HCT 30.4 % (34.0-46.0); HGB 9.8 gm/dL (11.4-16.0); Lymphocytes # (A) 1.4 k/uL (1.0-4.8); Lymphocytes % (A) 26 %; MCH 30.5 pg (25.0-35.0); Mean Platelet Volume 8.7; Monocytes # (A) 0.4 k/uL (0-1.0); Monocytes % (A) 8 %; Neutrophils # (A) 2.8 k/uL (1.3-7.7); Neutrophils % (A) 53 %; Platelet Count 140 k/uL (150-450); RDW 13.1 % (11.5-15.5); WBC 5.3 k/uL (3.8-10.6)
[2018-12-10 07:03] LABS: Potassium 4.8 mmol/L (3.5-5.1)
[2018-12-10] MEDS: ATORVASTATIN 40 MG TAB PO SCH (09:30)
[2018-12-10] MEDS: ASPIRIN 81 MG PO SCH (09:31)
[2018-12-10] MEDS: HEPARIN SODIUM,PORCINE 5,000 UNIT/ML 1 ML VIAL SQ SCH ×2 (09:31→20:30)
[2018-12-10] MEDS: FAMOTIDINE 20 MG TAB PO SCH (09:31)
[2018-12-10] MEDS: FUROSEMIDE 40 MG TAB PO SCH (09:31)
[2018-12-10] MEDS: hydrALAZINE HCL 50 MG TAB PO SCH ×3 (09:31→22:53)
[2018-12-10] MEDS: GABAPENTIN 300 MG CAP PO SCH ×3 (09:31→20:30)
[2018-12-10] MEDS: ISOSORBIDE MONONITRATE ER 30 MG TAB.ER.24H PO SCH (09:31)
[2018-12-10 11:31] LABS: Glucose,Whole Blood 167 mg/dL (75-99)
--- NOTE | 2018-12-10 12:59 | PN ---
PROGRESS NOTE Patient is seen for followup for acute kidney injury. Currently, patient is sitting up in bed. She is comfortable. She denies any significant complaints. Serum creatinine is about the same as yesterday. The patient has had good urine output. Lasix was decreased to once a day yesterday. There are plans for possible cardiac catheterization tomorrow. Chest x-ray was ordered yesterday afternoon, which showed no significant pulmonary vascular congestion. PHYSICAL EXAMINATION: Blood pressure is 112/61, heart rate 62 per minute. Patient is afebrile. Examination of the heart S1, S2. Examination of the lungs, decreased breath sounds at the bases. Minimal basal crackles are heard. Abdomen is soft, nontender. Exam of lower extremities shows no evidence of edema. WEIGHER AND MIXER exam is grossly intact. LABS: Show sodium of 138, potassium 4.8, chloride 107, BUN 34, serum creatinine 1.9, hemoglobin 9.8 g/dL. ASSESSMENT: 1. Acute kidney injury secondary to recent diuresis. Diuretics have been decreased. Lasix is changed to 40 mg p.o. daily, which I will continue. Chest x-ray shows improvement in pulmonary vasculature. If the serum creatinine continues to increase, I would hold off on cardiac catheterization tomorrow. 2. Status post acute non ST elevation myocardial infarction, currently chest pain free. 3. Congestive heart failure, acute on top of chronic, mainly systolic. 4. Cardiomyopathy, EF 35-40 percent. 5. History of aortic valve replacement with bovine valve. 6. Aortic regurgitation. PLAN: Continue the decreased dose of Lasix. May need to hold dose in a.m. I would hold off on the cardiac cath if the renal function continues to worsen unless the patient has recurring chest pains or significant ongoing ischemia. MMODL / IJN: [id number] /
--- NOTE | 2018-12-10 13:15 | P.PN ---
Subjective This is a pleasant 78 years old female with past medical history of coronary artery disease, hypertension, hyperlipidemia, diabetes mellitus, status post bariatric surgery and aortic valve replacement. She presents because of dyspnea over 7 days which was getting worse not associated with cough or chest pain. He has bilateral leg swelling. Patient's vitals are reviewed. Her blood pressure on the high side 181/71. Saturating 96% on 2 L via NC. Patient is afebrile. CBC showing mild anemia 10. Creatinine is elevated at 1.35, with unknown baseline. Troponin elevated at 0.315 and 0.2-35[place] [address]. Patient has elevated d- dimer 3.8 and cardiology or the recommended VQ scan and echocardiogram. As well as continue with Lasix and add beta beatrice. While Kamran inhibitor is on hold for elevated creatinine. Patient states that she doesn't have this pcp now. Patient was placed on heparin drip currently. 12/05/2018 Patient is seen today in the ICU. She was sitting in the chair and feels better. Her dyspnea is improving with no chest pain. Her blood pressure is controlled and she is of nitroglycerin drip. Vitas looks stable and she is saturating 98% on 5 L oxygen via nasal cannula. Leukocytosis resolved on WBC 9.1K. Creatinine is slightly elevated to 1.5, sugar is controlled. Patient was started on ceftriaxone yesterday for possible urinary tract infection, leukocytosis resolved today however urine culture still pending. Patient with no fever. Repeat chest x-ray from today showing CHF with bilateral pleural effusion and congestion. She still also on heparin drip. 12/06/2018 Patient seen and examined in the ICU. Her dyspnea is same as yesterday which is improved. No chest pain. Mild coughing. Blood pressure is stable. Rest of the vital signs stable as well. CBC unremarkable. Creatinine is similar to yesterday at 1.5. Patient is still on heparin drip. Urine culture showing no growth, patient elected have UTI and will stop antibiotic. Chest x-ray still showing congestive heart failure. Patient continue on Lasix 40 mg twice a day and imdur daily. 12/07/2018 Patient still improving regarding her dyspnea. No chest pain or coughing. No other new complaint. Patient is going for a KANDACE as per family consultant recommendation for the evaluation of the aortic valve regurgitation.creatinine stable at 1.5. Her sugar is controlled 120-169.she did not get insulin daily. repeat chest x-ray shows similar congestive heart failure with pleural effusion.her heparin drip was stopped and she is currently on by mouth Lasix 40 mg twice a day. 12/08/2018 pt continue to do better today , with no much dyspnea , no chest pain , pt has KANDACE which showing sever AR, cardiology team are following the case slowly and pt might need surgical intervention , with coronary surgery angiography with active follow-up for placement and possible mitral valve repair. Creatinine today is 1.6. we will consult nephrology team 12/09/18 pt is clinically stable and it was followed by cardiology team , plan for possible aortic valve repair and cardiac cath. 12/10/2018 Patient clinically stable with no chest pain and no or minimal dyspnea. She remains in her antihypertensive medication and her Vitals looks stable.plan for possible aortic valve repair and cardiac cath. Chest x-ray shows no more pulmonary congestion. Her creatinine is 1.9. Nephrology input is appreciated, recommended to hold off cardiac cath if her renal function continued to worsen unless she has ongoing symptoms and that appointment the benefits outweigh the risks. Patient currently on Lasix 40 mg by mouth daily Objective - Vital Signs Vital signs: Vital Signs Temp 98 F 12/10/18 12:40 Pulse 71 12/10/18 12:40 Resp 18 12/10/18 12:40 BP 113/54 12/10/18 12:40 Pulse Ox 96 12/10/18 12:40 Intake & Output 12/09/18 12/10/18 12/10/18 18:59 06:59 18:59 Intake Total 840 480 702 Output Total 1100 Balance -260 480 702 Weight 70.6 kg Intake: Oral 840 480 702 Output: Urine 1100 Other: Voiding Method Toilet # Voids 2 3 - Exam GENERAL: The patient is alert and oriented x3, not in any acute distress. Well developed, well nourished. HEENT: Pupils are round and equally reacting to light. EOMI. No scleral icterus. No conjunctival pallor. Normocephalic, atraumatic. No pharyngeal erythema. No thyromegaly. CARDIOVASCULAR: S1 and S2 present. No murmurs, rubs, or gallops. -PULMONARY: Chest is clear to auscultation, no wheezing . Bilateral inspiratory crackles. ABDOMEN: Soft, nontender, nondistended, normoactive bowel sounds. No palpable organomegaly. MUSCULOSKELETAL: No joint swelling or deformity. -EXTREMITIES: No cyanosis, clubbing, . Bilateral pitting leg edema NEUROLOGICAL: Gross neurological examination did not reveal any focal deficits. SKIN: No rashes. - Labs CBC & Chem 7: 12/10/18 05:48 12/10/18 05:48 Labs: Abnormal Lab Results - Last 24 Hours (Table) 12/09/18 12/09/18 12/10/18 Range/Units 16:55 20:33 05:48 RBC (3.80-5.40) m/uL Hgb (11.4-16.0) gm/dL Hct (34.0-46.0) % Plt Count (150-450) k/uL BUN 34 H (7-17) mg/dL Creatinine 1.91 H (0.52-1.04) mg/dL Glucose 123 H (74-99) mg/dL POC Glucose (mg/dL) 169 H (75-99) mg/dL Calcium 8.0 L (8.4-10.2) mg/dL Urine Protein Trace H (Negative) 12/10/18 12/10/18 12/10/18 Range/Units 05:48 05:56 11:12 RBC 3.20 L (3.80-5.40) m/uL Hgb 9.8 L (11.4-16.0) gm/dL Hct 30.4 L (34.0-46.0) % Plt Count 140 L (150-450) k/uL BUN (7-17) mg/dL Creatinine (0.52-1.04) mg/dL Glucose (74-99) mg/dL POC Glucose (mg/dL) 137 H 167 H (75-99) mg/dL Calcium (8.4-10.2) mg/dL Urine Protein (Negative) Assessment and Plan Assessment: acute congestive heart failure, systolic with EF 35-40% Elevated troponin. unlikely non-STEMI. Aortic regurgitation Expected hypertension and hypertensive emergency on admission. Improved Elevated d-dimer. Bilateral leg swelling. History of diabetes mellitus Hyperlipidemia Essential hypertension History of aortic valve replacement with bovine valve History of COPD Plan: This is a pleasant 78 years old female who presents because of congestive heart failure . we will call nephrology team prior to cardiac cath and valve repair/ replacement Continue with diuretics. Labs and medication were reviewed.. Continue same treatment. Continue with symptomatic treatment. Resume home medication. Monitor lytes and vitals. DVT and GI prophylaxis. Further recommendations of the clinical course of the patient DVT prophylaxis: heparin GI Prophylaxis: Pepcid PT/OT: Pending Prognosis is guarded
--- NOTE | 2018-12-10 14:30 | P.PN ---
Subjective Progress Note Date: 12/10/18 This is a 78-year-old female with history of hypertension, diabetes, hyperlipidemia, nicotine dependence, patient states she quit smoking in October of this year, history of aortic valve replacement with a bovine aortic valve approximately [address] [facility], she follows with Dr. Sarah cao as her primary doctor. Patient also states that she's had subclavian stenting in the past. She also states that she has a history of iron deficiency anemia for which she takes iron. She presents to my hospital with symptoms of a seven-day duration of progressively worsening shortness of breath, patient also states about that time she noticed lower extremity edema. She denies any chest discomfort. Laboratory data at [facility] been reviewed, d-dimer came back to be 3.8, white blood cell count 8.8, hemoglobin 10.6, platelet count 11.4 , sodium 138, potassium 4.7, BUN 18 and creatinine 1.4. Troponin 0.11, BNP level 4169. Patient was transferred to [facility] for further evaluation and treatment. Laboratory data on arrival here, white blood cell count 5.6, hemoglobin 10.0, platelet count 180. Sodium 139, potassium 5.0, BUN 21 and creatinine 1.3, glucose 273. Troponins here 0.31 and 0.23. Blood pressure on arrival here 187/74 with heart rate in the 90s, 91% on room air. EKG at [facility] showed a normal sinus rhythm with right bundle branch block pattern, nonspecific ST-T wave changes. EKG performed on arrival here showed normal sinus rhythm with first-degree AV block. Chest x-ray performed showed bilateral pleural effusions, she was given a 40 mg dose of IV Lasix. At the time of my examination this morning, patient still complains of feeling slightly short of breath, she states that she did put out a significant amount of urine and the swelling in her legs has improved a lot since her admission here. We will give the patient IV Lasix here and obtain an echocardiogram with Doppler study. Her Altace has currently been placed on hold because of abnormal renal function and potassium of 5.0. We'll resume her Lipitor, we will start the patient on a beta beatrice, to optimize blood pressure control. 12/09/2018 Patient seen and examined this morning, overall feeling much better. Still has some mild shortness of breath. Denies any chest pain. Creatinine is up to 1.8 today. The plan initially was that the patient be discharged home, see Dr. Vega in the office, and return later for cardiac catheterization, initially this was being deferred somewhat because of the worsening renal function. The patient was quite concerned this morning that she may not have transportation to return to her office visit and back to the hospital. I did speak with Dr. Vega this morning, we will monitor her renal function closely, if it improves we will tentatively book her for a cardiac cath on at 7:30 on Tuesday. 12/10/2018 Patient was seen and examined this morning, overall she does state that she's feeling better, BUN 34, creatinine 1.9. Hemoglobin 9.8. Patient will undergo cardiac catheterization tomorrow, we will give her hydration today. Check lytes BUN and creatinine in the morning Objective - Vital Signs Vital signs: Vital Signs Temp 98 F 12/10/18 12:40 Pulse 71 12/10/18 12:40 Resp 18 12/10/18 12:40 BP 113/54 12/10/18 12:40 Pulse Ox 96 12/10/18 12:40 Intake & Output 12/09/18 12/10/18 12/10/18 18:59 06:59 18:59 Intake Total 840 480 702 Output Total 1100 Balance -260 480 702 Weight 70.6 kg Intake: Oral 840 480 702 Output: Urine 1100 Other: Voiding Method Toilet # Voids 2 3 - Exam PHYSICAL EXAMINATION: GENERAL: 78-year-old female, pale in color, in no acute distress at the time of my examination HEENT: Head is atraumatic, normocephalic. Pupils equal, round. Sclera anicteric. Conjunctiva are clear. Mucous membranes of the mouth are moist. Neck is supple. There is no elevated jugular venous pressure. No carotid bruit is heard. HEART EXAMINATION: Heart S1 S2 1 systolic ejection murmur is heard. CHEST EXAMINATION: Lungs reveal diminished air entry to bilateral bases. ABDOMEN: Soft, nontender. Bowel sounds are heard. No organomegaly noted. EXTREMITIES: 2+ peripheral pulses with trace to 1+ evidence of peripheral edema.. NEUROLOGIC patient is awake, alert and oriented 3 . - Labs CBC & Chem 7: 12/10/18 05:48 12/10/18 05:48 Labs: Abnormal Lab Results - Last 24 Hours (Table) 12/09/18 12/09/18 12/10/18 Range/Units 16:55 20:33 05:48 RBC (3.80-5.40) m/uL Hgb (11.4-16.0) gm/dL Hct (34.0-46.0) % Plt Count (150-450) k/uL BUN 34 H (7-17) mg/dL Creatinine 1.91 H (0.52-1.04) mg/dL Glucose 123 H (74-99) mg/dL POC Glucose (mg/dL) 169 H (75-99) mg/dL Calcium 8.0 L (8.4-10.2) mg/dL Urine Protein Trace H (Negative) 12/10/18 12/10/18 12/10/18 Range/Units 05:48 05:56 11:12 RBC 3.20 L (3.80-5.40) m/uL Hgb 9.8 L (11.4-16.0) gm/dL Hct 30.4 L (34.0-46.0) % Plt Count 140 L (150-450) k/uL BUN (7-17) mg/dL Creatinine (0.52-1.04) mg/dL Glucose (74-99) mg/dL POC Glucose (mg/dL) 137 H 167 H (75-99) mg/dL Calcium (8.4-10.2) mg/dL Urine Protein (Negative) Assessment and Plan Plan: Assessment and plan #1 symptoms of one week duration of shortness of breath with lower extremity edema, evidence of congestive cardiac failure with elevated BNP level. LV function unknown. #2 history of aortic valve replacement 8 years ago with a bovine valve, valve failure with severe AI #3 diabetes #4 hyperlipidemia #5 accelerated hypertension #6 nicotine dependence, patient states she quit smoking in October #7 COPD #8 elevated d-dimer, rule out possibility of PE #9 anemia #10 abnormal troponins, 0.12, 0.31, 0.23, not suggestive of acute coronary syndrome, could be secondary to supply and demand mismatch. Patient denies having any chest discomfort. Plan At this point in time we will continue the patient on her current medications. Monitor renal function daily. Plan for cardiac catheterization on Fabien at 7: 30 , we will give her IV fluids today and 100 mL per hour. DNP note has been reviewed, I agree with a documented findings and plan of care. Patient was seen and examined.
[2018-12-10] MEDS: SODIUM CHLORIDE 0.9% 1,000 ML IV SCH ×2 (15:13→22:54)
[2018-12-10 16:24] LABS: Glucose,Whole Blood 136 mg/dL (75-99)
[2018-12-10 20:28] LABS: Glucose,Whole Blood 174 mg/dL (75-99)
[2018-12-11] MEDS: ASPIRIN 81 MG PO SCH (05:23)
[2018-12-11] MEDS: ATORVASTATIN 40 MG TAB PO SCH (05:23)
[2018-12-11] MEDS: SODIUM CHLORIDE 0.9% 1,000 ML IV SCH ×2 (05:24→21:29)
[2018-12-11 05:30] LABS: Glucose,Whole Blood 125 mg/dL (75-99)
[2018-12-11] MEDS: INSULIN ASPART (NovoLOG) 100 UNIT/ML VIAL SQ SCH ×4 (05:37→21:41)
[2018-12-11] MEDS ORDERED: ASPIRIN 325 MG TAB PO ONE (06:00)
[2018-12-11] MEDS ORDERED: SODIUM CHLORIDE 0.9% 1,000 ML in EMPTY BAG 1 BAG IV ONE (06:00)
[2018-12-11] MEDS ORDERED: ATORVASTATIN 80 MG TAB PO ONE (06:00)
[2018-12-11] MEDS: FAMOTIDINE 20 MG TAB PO SCH (06:15)
[2018-12-11] MEDS: ISOSORBIDE MONONITRATE ER 30 MG TAB.ER.24H PO SCH (06:15)
[2018-12-11] MEDS: CARVEDILOL 6.25 MG TAB PO SCH ×2 (06:15→17:14)
[2018-12-11] MEDS: HEPARIN SODIUM,PORCINE 5,000 UNIT/ML 1 ML VIAL SQ SCH ×2 (06:15→21:41)
[2018-12-11] MEDS: hydrALAZINE HCL 50 MG TAB PO SCH ×3 (06:15→21:41)
[2018-12-11] MEDS: GABAPENTIN 300 MG CAP PO SCH ×3 (06:15→21:41)
[2018-12-11 06:43] LABS: Calcium 8.1 mg/dL (8.4-10.2)
[2018-12-11] MEDS ORDERED: IV FLUID CONTINUATION 150 ML IV ONE (07:32)
[2018-12-11] MEDS ORDERED: fentaNYL (PF) 50 MCG/ML 2 ML AMP ONE (07:39)
[2018-12-11] MEDS ORDERED: LIDOCAINE 1% INJ 10MG/ML (20 ML MDV) ONE (07:40)
[2018-12-11] MEDS ORDERED: fentaNYL (PF) 50 MCG/ML 2 ML AMP IVP ONE (07:41)
[2018-12-11] MEDS ORDERED: LIDOCAINE 1% INJ 10MG/ML (20 ML MDV) SQ ONE (07:43)
[2018-12-11] MEDS ORDERED: IOPAMIDOL-370 125ML BTL INJ ONE (08:10)
[2018-12-11] MEDS ORDERED: RX INFO: IV CONTRAST WAS GIVEN 1 EACH MISC MISCELLANE PRN (08:16)
[2018-12-11 08:18] LABS: O2 Sat Blood Gas 60.2 %
[2018-12-11 08:18] LABS: O2 Sat Blood Gas 90.1 %
[2018-12-11 08:18] LABS: O2 Sat Blood Gas 58.7 %
[2018-12-11] MEDS ORDERED: SODIUM CHLORIDE 0.9% 1,000 ML IV SCH (08:30)
--- NOTE | 2018-12-11 09:06 | CC ---
CARDIAC CATHETERIZATION REPORT Mrs. Chowdary is a 78-year-old female status post carotid stenting and status post aortic valve replacement, who presented with symptoms of congestive heart failure and was found to have severe aortic regurgitation with a mildly impaired left ventricular systolic function. In view of that, recommendation was made regarding cardiac catheterization. The procedure as well as the risks and the complications were discussed with the patient who is in full understanding and agreement. The patient was seen by the nephrology service prior to the procedure because of her baseline renal insufficiency. PROCEDURE: Patient was brought to skilled labor in a fasting semi-sedated state after receiving fentanyl and Benadryl and achieving moderate conscious sedated state. Using Xylocaine anesthesia in the Seldinger technique a 6-[place] sheath was introduced in the right femoral artery and 8-[place] sheath in the right femoral vein. Right heart catheterization was performed using [place] catheter. Multiple pressure and samples were obtained. Cardiac output by thermodilution was calculated. Following that, selective right and left coronary angiography was performed using 6-[place]izen [place] 4 bend right and left Ruchi catheters. Multiple views of the coronary artery including hemiaxial views were obtained. Following that, the catheter and sheaths were removed. Hemostasis was obtained with pressure on the right groin. There was no immediate complication. Patient is returned to her room in stable condition. FINDINGS: HEMODYNAMICS: Pulmonary artery saturation 59%, right atrial saturation 60%, femoral artery saturation 90%. Cardiac output by thermodilution 5.6 L/minute and by Adeline 3.5 L/minute. Pulmonary artery systolic pressure of 50 with a diastolic of 20 and a mean of 27 mmHg. Pulmonary capillary wedge pressure A-wave of 25, V-wave 25 with a mean of 18 mmHg. Right ventricle systolic pressure of 50 with an end-diastolic of 9 mmHg. Right atrium A-wave of 12, V-wave of 8 with a mean of 6 mmHg. FLUOROSCOPY: There was severe calcification involving the mitral anulus. Calcification of the coronary arteries was noted as well. LEFT MAIN: This is a large-sized vessel bifurcating in the left circumflex, left anterior descending artery. Left main coronary artery has a 10% to 20% plaque distally with no evidence of high-grade stenosis. LEFT ANTERIOR DESCENDING ARTERY: This is a large-sized vessel reaching toward the apex that tapers down distal third, giving rise to 2 obtuse marginal branches. The left anterior descending artery has mild intimal disease throughout its course without any evidence of high-grade stenosis. LEFT CIRCUMFLEX: This is a nondominant vessel giving rise to 2 obtuse marginal branches. The second one is small in caliber and has a tubular lesion of 50% to 60% in the proximal segment. The rest of the vessel has no high-grade stenosis. RIGHT CORONARY ARTERY: This is a large dominant vessel bifurcating distally PDA and posterolateral segment and branches. The right PDA reaches toward the inferoapical wall. The right coronary artery has mild intimal disease of 20% without any evidence of high-grade stenosis. LEFT VENTRICULOGRAM: Left ventriculogram was not performed. CONCLUSION: 1. Mild to moderate triple-vessel coronary disease. 2. Mild pulmonary hypertension. RECOMMENDATION: In view of finding anatomy, I recommend proceeding with evaluation for redo aortic valve replacement and if it is felt a very high risk surgically to consider valve in valve TAVR approach. Those findings and recommendation were discussed with the patient who is in full understanding and agreement. Duration of procedure is 27 minutes. MMKARLOSL / IJN: [id number] / WILFRED
[2018-12-11 11:36] VITALS: BMI 28.0
[2018-12-11 11:38] LABS: Glucose,Whole Blood 272 mg/dL (75-99)
[2018-12-11] MEDS: FUROSEMIDE 40 MG TAB PO SCH (12:15)
[2018-12-11 12:17] LABS: Prothrombin Time 10.3 sec (9.0-12.0)
--- NOTE | 2018-12-11 12:20 | US ---
EXAMINATION TYPE: US carotid duplex BILAT DATE OF EXAM: 12/11/2018 COMPARISON: NONE CLINICAL HISTORY: preop cardiac surgery. Recent prior smoker; prior CABG EXAM MEASUREMENTS: RIGHT: Peak Systolic Velocity (PSV) cm/sec ----- Right CCA: 118.0 ----- Right ICA: 203.5 ----- Right ECA: 114.0 mid ICA/CCA ratio: 1.7 RIGHT: End Diastole cm/sec ----- Right CCA: 13.9 ----- Right ICA: 40.9 ----- Right ECA: 0.0 LEFT: Peak Systolic Velocity (PSV) cm/sec ----- Left CCA: 90.7 ----- Left ICA: 231.4 proximally ----- Left ECA: 108.5 ICA/CCA ratio: 2.6 LEFT: End Diastole cm/sec ----- Left CCA: 10.1 ----- Left ICA: 31.6 ----- Left ECA: 0.0 VERTEBRALS (direction of flow): Right Vertebral: Antegrade Left Vertebral: Antegrade Rhythm: Normal Moderate to severe intimal wall changes are noted at bilateral carotid bifurcations with abnormally e levated PSV in Bilateral ICA. IMPRESSION: 1. 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 2. Atheromatous plaquing right internal carotid artery contributing to moderate stenosis between 50 a nd 69%. Correlate with the patient's symptoms. Criteria for Assigning % of Stenosis / Diameter reduction (Estimation based on the indirect measurements of the internal carotid artery velocities (ICA PSV). 1. Normal (no stenosis)=ICA PSV < 125 cm/s: ratio < 2.0: ICA EDV<40 cm/s. 2. Less than 50% stenosis=ICA PSV < 125 cm/s: ratio < 2.0: ICA EDV<40 cm/s. 3. 50 to 69% stenosis=ICA PSV of 125 to 230 cm/s: ration 2.0 ? 4.0: ICA EDV 40-100 cm/s. 4. Greater than 70% stenosis to near occlusion= ICA PSV > 230 cm/s: ratio > 4.0: ICA EDV > 100 cm/s. 5. Near occlusion= ICA PSV velocities may be low or undetectable: variable ratio and ICA EDV. 6. Total occlusion=unable to detect flow.
--- NOTE | 2018-12-11 12:30 | P.PN ---
Subjective This is a pleasant 78 years old female with past medical history of coronary artery disease, hypertension, hyperlipidemia, diabetes mellitus, status post bariatric surgery and aortic valve replacement. She presents because of dyspnea over 7 days which was getting worse not associated with cough or chest pain. He has bilateral leg swelling. Patient's vitals are reviewed. Her blood pressure on the high side 181/71. Saturating 96% on 2 L via NC. Patient is afebrile. CBC showing mild anemia 10. Creatinine is elevated at 1.35, with unknown baseline. Troponin elevated at 0.315 and 0.2-35[place] [address]. Patient has elevated d- dimer 3.8 and cardiology or the recommended VQ scan and echocardiogram. As well as continue with Lasix and add beta beatrice. While Kamran inhibitor is on hold for elevated creatinine. Patient states that she doesn't have this pcp now. Patient was placed on heparin drip currently. 12/05/2018 Patient is seen today in the ICU. She was sitting in the chair and feels better. Her dyspnea is improving with no chest pain. Her blood pressure is controlled and she is of nitroglycerin drip. Vitas looks stable and she is saturating 98% on 5 L oxygen via nasal cannula. Leukocytosis resolved on WBC 9.1K. Creatinine is slightly elevated to 1.5, sugar is controlled. Patient was started on ceftriaxone yesterday for possible urinary tract infection, leukocytosis resolved today however urine culture still pending. Patient with no fever. Repeat chest x-ray from today showing CHF with bilateral pleural effusion and congestion. She still also on heparin drip. 12/06/2018 Patient seen and examined in the ICU. Her dyspnea is same as yesterday which is improved. No chest pain. Mild coughing. Blood pressure is stable. Rest of the vital signs stable as well. CBC unremarkable. Creatinine is similar to yesterday at 1.5. Patient is still on heparin drip. Urine culture showing no growth, patient elected have UTI and will stop antibiotic. Chest x-ray still showing congestive heart failure. Patient continue on Lasix 40 mg twice a day and imdur daily. 12/07/2018 Patient still improving regarding her dyspnea. No chest pain or coughing. No other new complaint. Patient is going for a KANDACE as per bridal stylist sales consultant recommendation for the evaluation of the aortic valve regurgitation.creatinine stable at 1.5. Her sugar is controlled 120-169.she did not get insulin daily. repeat chest x-ray shows similar congestive heart failure with pleural effusion.her heparin drip was stopped and she is currently on by mouth Lasix 40 mg twice a day. 12/08/2018 pt continue to do better today , with no much dyspnea , no chest pain , pt has KANDACE which showing sever AR, cardiology team are following the case slowly and pt might need surgical intervention , with coronary surgery angiography with active follow-up for placement and possible mitral valve repair. Creatinine today is 1.6. we will consult nephrology team 12/09/18 pt is clinically stable and it was followed by cardiology team , plan for possible aortic valve repair and cardiac cath. 12/10/2018 Patient clinically stable with no chest pain and no or minimal dyspnea. She remains in her antihypertensive medication and her Vitals looks stable.plan for possible aortic valve repair and cardiac cath. Chest x-ray shows no more pulmonary congestion. Her creatinine is 1.9. Nephrology input is appreciated, recommended to hold off cardiac cath if her renal function continued to worsen unless she has ongoing symptoms and that appointment the benefits outweigh the risks. Patient currently on Lasix 40 mg by mouth daily 12/11/2018 Patient when I saw her today this morning she was already back from the cardiac cath, she denies chest pain or dyspnea. She was located more pale. The cath showed [id number] triple-vessel coronary disease, and recommended patient to do an aortic valve replacement or repair. Carotid duplex showing stenosis more than 70% on both sides. Vascular surgery team has been consulted already. Patient creatinine today is improving to 1.7 wall she is on IV fluid at 100 mL /h. Objective - Vital Signs Vital signs: Vital Signs Temp 98.0 F 12/11/18 11:01 Pulse 58 L 12/11/18 11:01 Resp 20 12/11/18 11:01 BP 138/49 12/11/18 11:01 Pulse Ox 95 12/11/18 11:01 Intake & Output 12/10/18 12/11/18 12/11/18 18:59 06:59 18:59 Intake Total 924 600 325 Balance 924 600 325 Weight 71.8 kg 71.8 kg Intake: IV 50 Intake, IV Titration 75 Amount Sodium Chloride 0.9% 1, 75 000 ml @ 75 mls/hr IV . [id number] [facility] Rx#:[id number] Oral 924 600 200 Other: Voiding Method Toilet # Voids 3 1 - Exam GENERAL: The patient is alert and oriented x3, not in any acute distress. Well developed, well nourished. HEENT: Pupils are round and equally reacting to light. EOMI. No scleral icterus. No conjunctival pallor. Normocephalic, atraumatic. No pharyngeal erythema. No thyromegaly. CARDIOVASCULAR: S1 and S2 present. No murmurs, rubs, or gallops. -PULMONARY: Chest is clear to auscultation, no wheezing . Bilateral inspiratory crackles. ABDOMEN: Soft, nontender, nondistended, normoactive bowel sounds. No palpable organomegaly. MUSCULOSKELETAL: No joint swelling or deformity. -EXTREMITIES: No cyanosis, clubbing, . Bilateral pitting leg edema NEUROLOGICAL: Gross neurological examination did not reveal any focal deficits. SKIN: No rashes. - Labs CBC & Chem 7: 12/10/18 05:48 12/11/18 06:00 Labs: Abnormal Lab Results - Last 24 Hours (Table) 12/10/18 12/10/18 12/11/18 Range/Units 16:13 20:24 05:29 Chloride (98-107) mmol/L BUN (7-17) mg/dL Creatinine (0.52-1.04) mg/dL Glucose (74-99) mg/dL POC Glucose (mg/dL) 136 H 174 H 125 H (75-99) mg/dL Calcium (8.4-10.2) mg/dL 12/11/18 12/11/18 Range/Units 06:00 11:24 Chloride 109 H (98-107) mmol/L BUN 30 H (7-17) mg/dL Creatinine 1.74 H (0.52-1.04) mg/dL Glucose 120 H (74-99) mg/dL POC Glucose (mg/dL) 272 H (75-99) mg/dL Calcium 8.1 L (8.4-10.2) mg/dL Assessment and Plan Assessment: acute congestive heart failure, systolic with EF 35-40% Elevated troponin. unlikely non-STEMI. Status post cardiac cath, showing triple coronary artery disease, mild-to- moderate Bilateral carotid artery stenosis Aortic regurgitation Acute on chronic kidney disease, mostly prerenal Expected hypertension and hypertensive emergency on admission. Improved Elevated d-dimer. Bilateral leg swelling. History of diabetes mellitus Hyperlipidemia Essential hypertension History of aortic valve replacement with bovine valve History of COPD Plan: This is a pleasant 78 years old female who presents because of congestive heart failure . we will call nephrology team prior to cardiac cath and valve repair/ replacement Continue with diuretics. Labs and medication were reviewed. Vascular surgery been consulted. Appreciate nephrology input.. Continue same treatment. Continue with symptomatic treatment. Resume home medication. Monitor lytes and vitals. DVT and GI prophylaxis. Further recommendations of the clinical course of the patient DVT prophylaxis: heparin GI Prophylaxis: Pepcid PT/OT: Pending Prognosis is guarded
--- NOTE | 2018-12-11 13:37 | P.GSCN ---
<Lucia Beckford - Last Filed: 12/11/18 13:12> History of Present Illness Consult date: 12/11/18 Reason for Consult: Re-do aortic valve replacement, surgical recommendations Requesting physician: Isidoro Vega History of present illness: This is a 78-year-old female patient who follows on an outpatient basis with Dr. Helen Roth's office. She has a previous medical history of aortic valve replacement 8 years ago at [facility], coronary artery disease, diabetes off all medications for the last 6 months, hypertension, hyperlipidemia , chronic kidney disease stage III, carotid artery disease, COPD, family history of premature coronary artery disease with father dying at 49 years old, left subclavian stenting, previous tobacco dependence as patient quit in October 2018 for the second time, previously quit approximate 17-18 years ago and then started smoking again 2 years ago, iron deficiency anemia, and obesity with gastric bypass surgery approximately 18-19 years ago. She presented to [facility] via EMS with complaints of progressive shortness of breath over the previous week. She also complained of lower extremity edema. She denied any chest pain, fever, cough, lightheadedness, dizziness, nausea, or sick contacts. At [facility] she was noted to have bilateral pleural effusions on her chest x-ray and was given IV Lasix. Lab work was completed with slight elevation in her troponin at 0.11, elevated d-dimer at 3.86, and elevation of her BNP at 4169. For these reasons the patient was transferred to [facility] where she was admitted for evaluation and treatment of acute on chronic systolic heart failure and non-STEMI. Transthoracic echocardiogram was completed on December 04 demonstrating impaired LV function with EF 35-40%, paradoxical septal wall motion, and hypokinesis of the basal inferior, mid inferior and mid inferoseptal LV, mild to moderate bioprosthetic aortic valve regurgitation with peak/mean gradient across the aortic valve 37.42 mmHg/22.99 mmHg, mild to moderate mitral regurgitation, moderate tricuspid regurgitation with moderate pulmonary hypertension. Lower extremity dopplers were completed demonstrating no DVTs. The patient was recommended to undergo heart catheterization, however this was delayed somewhat due to the patient's renal function. In the meantime a transesophageal echocardiogram was completed demonstrating normal left ventricular size with mild to moderate global hypokinesis and ejection fraction 45%, bioprosthetic aortic valve with thickening and calcification with severe aortic regurgitation, mitral annulus with calcification and moderate mitral regurgitation, and mild tricuspid regurgitation. Cardiac catheterization was completed this morning demonstrating mild to moderate triple-vessel coronary artery disease with 10-20 % distal left main stenosis, 50-60% stenosis in the second obtuse marginal artery, and right coronary artery with 20% stenosis. Dr. Moreno from cardiothoracic surgery was consulted regarding recommendations for re-do surgical versus transcatheter aortic valve replacement. Review of Systems Review of systems was completed and was negative except as noted. - Cardiovascular Reports dyspnea on exertion, Reports leg edema - Respiratory Reports dyspnea Past Medical History Past Medical History: Coronary Artery Disease (CAD), COPD, Diabetes Mellitus, Hyperlipidemia, Hypertension, Renal Disease Additional Past Medical History / Comment(s): diabetic, no meds for 6 MONTHS History of Any Multi-Drug Resistant Organisms: None Reported Past Surgical History: Bariatric Surgery, Coronary Bypass/CABG Additional Past Surgical History / Comment(s): aortic valve replacement LEFT CAROTID ENDARTECTOMY, BIARIATIC 2001 Past Anesthesia/Blood Transfusion Reactions: No Reported Reaction Past Psychological History: No Psychological Hx Reported Smoking Status: Former smoker Past Alcohol Use History: None Reported Past Drug Use History: None Reported - Past Family History Mother Family Medical History: Coronary Artery Disease (CAD) Father Family Medical History: Coronary Artery Disease (CAD) Additional Family Medical History / Comment(s): FATHER PASSED AT AGE 49 Medications and Allergies Home Medications Medication Instructions Recorded Confirmed Type Aspirin EC [Ecotrin Low Dose] 162 mg PO DAILY 12/03/18 12/03/18 History Atorvastatin [Lipitor] 40 mg PO HS 12/03/18 12/03/18 History Citalopram Hydrobromide [CeleXA] 40 mg PO DAILY 12/03/18 12/03/18 History Ergocalciferol (Vitamin D2) 50,000 unit PO Q7D 12/03/18 12/03/18 History [Vitamin D2] Ferrous Sulfate [Iron (65 MG 325 mg PO DAILY 12/03/18 12/03/18 History Elemental)] Furosemide [Lasix] 40 mg PO DAILY 12/03/18 12/03/18 History Gabapentin [Neurontin] 300 mg PO TID 12/03/18 12/03/18 History Multivitamins, Thera [Multivitamin 1 tab PO DAILY 12/03/18 12/03/18 History (formulary)] Omeprazole [PriLOSEC] 20 mg PO DAILY 12/03/18 12/03/18 History Ubidecarenone [Co Q-10] 100 mg PO DAILY 12/03/18 12/03/18 History Carvedilol [Coreg] 6.25 mg PO BID-W/MEALS #60 tab 12/12/18 Rx Isosorbide Mononitrate ER [Imdur] 30 mg PO DAILY #30 tab.er.24h 12/12/18 Rx Nitroglycerin Sl Tabs [Nitrostat] 0.4 mg SUBLINGUAL Q5M PRN #20 tab 12/12/18 Rx hydrALAZINE HCL [Apresoline] 50 mg PO TID #90 tab 12/12/18 Rx Allergies Allergy/AdvReac Type Severity Reaction Status Date / Time No Known Allergies Allergy Verified 12/03/18 23:49 Surgical - Exam Vital Signs Temp Pulse Resp BP Pulse Ox 98.6 F 98 18 187/74 91 L 12/03/18 23:28 12/03/18 23:28 12/03/18 23:28 12/03/18 23:28 12/03/18 23:28 - General well developed, well nourished, no distress, no pain, obese - Eyes PERRL, normal ocular movement - ENT no hearing loss - Neck no masses, no bruits, trachea midline - Respiratory Lungs sounds diminished bilaterally. Respirations even, nonlabored. Currently on room air with oxygen saturation 91-96%. No chest wall deformities. - Cardiovascular S1, S2 present, positive systolic murmur. Regular rate and rhythm, sinus rhythm on telemetry. Palpable peripheral pulses bilaterally. No edema present. No calf pain or tenderness noted. No varicosities noted. - Abdomen Abdomen: soft, non tender, bowel sounds - Genitourinary Deferred - Rectum Deferred - Integumentary no rash, no growths - Neurologic normal coordination, normal sensation - Musculoskeletal normal posture - Psychiatric oriented to time, oriented to person, oriented to place, speech is normal Results - Labs 12/10/18 05:48 12/11/18 06:00 Abnormal Lab Results - Last 24 Hours (Table) 12/10/18 12/10/18 12/10/18 Range/Units 11:12 16:13 20:24 Chloride (98-107) mmol/L BUN (7-17) mg/dL Creatinine (0.52-1.04) mg/dL Glucose (74-99) mg/dL POC Glucose (mg/dL) 167 H 136 H 174 H (75-99) mg/dL Calcium (8.4-10.2) mg/dL 12/11/18 12/11/18 Range/Units 05:29 06:00 Chloride 109 H (98-107) mmol/L BUN 30 H (7-17) mg/dL Creatinine 1.74 H (0.52-1.04) mg/dL Glucose 120 H (74-99) mg/dL POC Glucose (mg/dL) 125 H (75-99) mg/dL Calcium 8.1 L (8.4-10.2) mg/dL Diabetes panel 12/11/18 Range/Units 06:00 Sodium 138 (137-145) mmol/L Potassium 5.0 (3.5-5.1) mmol/L Chloride 109 H (98-107) mmol/L Carbon Dioxide 26 (22-30) mmol/L BUN 30 H (7-17) mg/dL Creatinine 1.74 H (0.52-1.04) mg/dL Glucose 120 H (74-99) mg/dL Calcium 8.1 L (8.4-10.2) mg/dL Calcium panel 12/11/18 Range/Units 06:00 Calcium 8.1 L (8.4-10.2) mg/dL Pituitary panel 12/11/18 Range/Units 06:00 Sodium 138 (137-145) mmol/L Potassium 5.0 (3.5-5.1) mmol/L Chloride 109 H (98-107) mmol/L Carbon Dioxide 26 (22-30) mmol/L BUN 30 H (7-17) mg/dL Creatinine 1.74 H (0.52-1.04) mg/dL Glucose 120 H (74-99) mg/dL Calcium 8.1 L (8.4-10.2) mg/dL Adrenal panel 12/11/18 Range/Units 06:00 Sodium 138 (137-145) mmol/L Potassium 5.0 (3.5-5.1) mmol/L Chloride 109 H (98-107) mmol/L Carbon Dioxide 26 (22-30) mmol/L BUN 30 H (7-17) mg/dL Creatinine 1.74 H (0.52-1.04) mg/dL Glucose 120 H (74-99) mg/dL Calcium 8.1 L (8.4-10.2) mg/dL - Imaging Chest x-ray: report reviewed, image reviewed EKG: image reviewed Additional studies: Heart catheterization films reviewed Assessment and Plan Plan: 1. Severe aortic valve regurgitation, status post bioprosthetic aortic valve replacement approximately 8 years ago 2. Elevated troponins suggestive of non-STEMI 3. Acute on chronic systolic heart failure 4. Mild coronary artery disease 5. Hypertension 6. Hyperlipidemia 7. Acute on chronic kidney disease stage III 8. Diabetes mellitus off medications, hemoglobin A1c 7.0% 9. Recent cessation of smoking in October 2018 10. Chronic iron deficiency anemia 11. Family history of premature coronary artery disease, father at 49 years old 12. Obesity, status post gastric bypass The patient was seen and examined at the bedside with Dr. Moreno. Chart/ diagnostics were reviewed. Discussed with the patient surgical aortic valve replacement versus transcatheter aortic valve replacement, the usual perioperative course for both approaches were discussed in detail, all questions were answered. At this time due to the patient's other comorbid diagnoses, the patient would be considered high risk for traditional re-do surgical aortic valve replacement. We recommend transcatheter aortic valve replacement. Orders were placed for carotid Dopplers, pulmonary function testing, and lab work. We will calculate STS risk score. Patient may be discharged to home once current medical comorbidities are resolved and okay with other services to follow-up in the [facility] clinic in [place]. The [facility] clinic will contact the patient once she has been discharged from the hospital for follow-up. This was discussed in detail with the patient and she is agreeable. This will be discussed with Dr. Vega by Dr. Moreno. Please call us with any further questions. Thank you Dr. Vega for this consult. We look for to working with you in the care of your patient. Time with Patient: Greater than 30 <Rogers Moreno - Last Filed: 12/13/18 08:54> Surgical - Exam Vital Signs Temp Pulse Resp BP Pulse Ox 98.6 F 98 18 187/74 91 L 12/03/18 23:28 12/03/18 23:28 12/03/18 23:28 12/03/18 23:28 12/03/18 23:28 Results - Labs 12/10/18 05:48 12/12/18 05:38 Abnormal Lab Results - Last 24 Hours (Table) 12/12/18 12/12/18 Range/Units 11:23 16:39 POC Glucose (mg/dL) 161 H 161 H (75-99) mg/dL Microbiology - Last 24 Hours (Table) 12/11/18 16:17 Nasal Screen MRSA/MSSA - Final Nasal Swab Assessment and Plan Assessment: Patient is examined and studies were reviewed. STS calculations reveal the patient to be intermediate risk for surgical aortic valve replacement, however given her obesity and frailty I think her risk is higher than this. I would estimate her to be at least a 10% mortality making her high risk for surgical aortic valve. Case was discussed with Dr. Vega. We will refer the patient for LUBNA evaluation.
[2018-12-11 17:31] LABS: Glucose,Whole Blood 146 mg/dL (75-99)
[2018-12-11 21:06] LABS: Hepatitis A Antibody IgM Non-Reactive (Non-Reactive); Hepatitis B Core IgM Non-Reactive (Non-Reactive)
[2018-12-11 21:25] LABS: Glucose,Whole Blood 142 mg/dL (75-99)
[2018-12-12] MEDS: SODIUM CHLORIDE 0.9% 1,000 ML IV SCH ×2 (03:42→17:44)
[2018-12-12 06:14] LABS: Glucose,Whole Blood 164 mg/dL (75-99)
[2018-12-12] MEDS: INSULIN ASPART (NovoLOG) 100 UNIT/ML VIAL SQ SCH ×3 (06:15→17:47)
[2018-12-12] MEDS: CARVEDILOL 6.25 MG TAB PO SCH ×2 (06:15→17:47)
[2018-12-12 06:21] LABS: Potassium 4.8 mmol/L (3.5-5.1)
[2018-12-12] MEDS: ASPIRIN 81 MG PO SCH (09:26)
[2018-12-12] MEDS: ATORVASTATIN 40 MG TAB PO SCH (09:27)
[2018-12-12] MEDS: FAMOTIDINE 20 MG TAB PO SCH (09:28)
[2018-12-12] MEDS: GABAPENTIN 300 MG CAP PO SCH ×2 (09:29→17:47)
[2018-12-12] MEDS: FUROSEMIDE 40 MG TAB PO SCH (09:29)
[2018-12-12] MEDS: hydrALAZINE HCL 50 MG TAB PO SCH ×2 (09:30→17:47)
[2018-12-12] MEDS: ISOSORBIDE MONONITRATE ER 30 MG TAB.ER.24H PO SCH (09:30)
[2018-12-12] MEDS: HEPARIN SODIUM,PORCINE 5,000 UNIT/ML 1 ML VIAL SQ SCH (09:40)
[2018-12-12 11:25] LABS: Glucose,Whole Blood 161 mg/dL (75-99)
--- NOTE | 2018-12-12 14:07 | P.PN ---
Subjective Progress Note Date: 12/12/18 This is a 78-year-old female with history of hypertension, diabetes, hyperlipidemia, nicotine dependence, patient states she quit smoking in October of this year, history of aortic valve replacement with a bovine aortic valve approximately 8 years ago at [facility], she follows with Dr. Sarah cao as her primary doctor. Patient also states that she's had subclavian stenting in the past. She also states that she has a history of iron deficiency anemia for which she takes iron. She presents to my hospital with symptoms of a seven-day duration of progressively worsening shortness of breath, patient also states about that time she noticed lower extremity edema. She denies any chest discomfort. Laboratory data at [facility] been reviewed, d-dimer came back to be 3.8, white blood cell count 8.8, hemoglobin 10.6, platelet count 11.4 , sodium 138, potassium 4.7, BUN 18 and creatinine 1.4. Troponin 0.11, BNP level 4169. Patient was transferred to [facility] for further evaluation and treatment. Laboratory data on arrival here, white blood cell count 5.6, hemoglobin 10.0, platelet count 180. Sodium 139, potassium 5.0, BUN 21 and creatinine 1.3, glucose 273. Troponins here 0.31 and 0.23. Blood pressure on arrival here 187/74 with heart rate in the 90s, 91% on room air. EKG at [facility] showed a normal sinus rhythm with right bundle branch block pattern, nonspecific ST-T wave changes. EKG performed on arrival here showed normal sinus rhythm with first-degree AV block. Chest x-ray performed showed bilateral pleural effusions, she was given a 40 mg dose of IV Lasix. At the time of my examination this morning, patient still complains of feeling slightly short of breath, she states that she did put out a significant amount of urine and the swelling in her legs has improved a lot since her admission here. We will give the patient IV Lasix here and obtain an echocardiogram with Doppler study. Her Altace has currently been placed on hold because of abnormal renal function and potassium of 5.0. We'll resume her Lipitor, we will start the patient on a beta beatrice, to optimize blood pressure control. 12/09/2018 Patient seen and examined this morning, overall feeling much better. Still has some mild shortness of breath. Denies any chest pain. Creatinine is up to 1.8 today. The plan initially was that the patient be discharged home, see Dr. Vega in the office, and return later for cardiac catheterization, initially this was being deferred somewhat because of the worsening renal function. The patient was quite concerned this morning that she may not have transportation to return to her office visit and back to the hospital. I did speak with Dr. Vega this morning, we will monitor her renal function closely, if it improves we will tentatively book her for a cardiac cath on at 7:30 on Tuesday. 12/10/2018 Patient was seen and examined this morning, overall she does state that she's feeling better, BUN 34, creatinine 1.9. Hemoglobin 9.8. Patient will undergo cardiac catheterization tomorrow, we will give her hydration today. Check lytes BUN and creatinine in the morning 10/11/2019 Patient was taken to the cardiac catheterization lab yesterday by Dr. Vega, she was found to have mild to moderate triple-vessel coronary artery disease and mild pulmonary hypertension. In view of the findings, Dr. Vega did consult with cardiothoracic surgery for redo aortic valve replacement and if that was felt to be high risk, to consider valve in valve TAVR procedure. Patient was seen in consultation by cardiothoracic surgery and in fact felt to be high risk for surgery. She was seen and examined this morning, denied any chest pain, breathing overall is stable. Plan is for the patient to be discharged home with home care, insurance will be made as an outpatient for Her TAVR surgery. Objective - Vital Signs Vital signs: Vital Signs Temp 98.0 F 12/12/18 12:00 Pulse 63 12/12/18 12:00 Resp 17 12/12/18 12:00 BP 111/67 12/12/18 12:00 Pulse Ox 96 12/12/18 12:00 Intake & Output 12/11/18 12/12/18 12/12/18 18:59 06:59 18:59 Intake Total 325 347 Balance 325 347 Weight 71.8 kg 72.1 kg Intake: IV 50 Intake, IV Titration 75 Amount Sodium Chloride 0.9% 1, 75 000 ml @ 75 mls/hr IV . [id number] Rx#:[id number] Oral 200 347 Other: Voiding Method Toilet # Voids 3 2 1 - Exam PHYSICAL EXAMINATION: GENERAL: 78-year-old female, pale in color, in no acute distress at the time of my examination HEENT: Head is atraumatic, normocephalic. Pupils equal, round. Sclera anicteric. Conjunctiva are clear. Mucous membranes of the mouth are moist. Neck is supple. There is no elevated jugular venous pressure. No carotid bruit is heard. HEART EXAMINATION: Heart S1 S2 1 systolic ejection murmur is heard. CHEST EXAMINATION: Lungs reveal diminished air entry to bilateral bases. ABDOMEN: Soft, nontender. Bowel sounds are heard. No organomegaly noted. EXTREMITIES: 2+ peripheral pulses with trace to 1+ evidence of peripheral edema. Right groin soft, no evidence of any hematoma.. NEUROLOGIC patient is awake, alert and oriented 3 . - Labs CBC & Chem 7: 12/10/18 05:48 12/12/18 05:38 Labs: Abnormal Lab Results - Last 24 Hours (Table) 12/11/18 12/11/18 12/12/18 Range/Units 17:21 21:10 05:38 Chloride 111 H (98-107) mmol/L BUN 28 H (7-17) mg/dL Creatinine 1.70 H (0.52-1.04) mg/dL Glucose 166 H (74-99) mg/dL POC Glucose (mg/dL) 146 H 142 H (75-99) mg/dL Calcium 8.0 L (8.4-10.2) mg/dL 12/12/18 12/12/18 Range/Units 06:12 11:23 Chloride (98-107) mmol/L BUN (7-17) mg/dL Creatinine (0.52-1.04) mg/dL Glucose (74-99) mg/dL POC Glucose (mg/dL) 164 H 161 H (75-99) mg/dL Calcium (8.4-10.2) mg/dL Microbiology - Last 24 Hours (Table) 12/11/18 16:17 Nasal Screen MRSA/MSSA - Preliminary Nasal Swab Assessment and Plan Plan: Assessment and plan #1 symptoms of one week duration of shortness of breath with lower extremity edema, evidence of congestive cardiac failure with elevated BNP level. LV function unknown. #2 history of aortic valve replacement 8 years ago with a bovine valve, valve failure with severe AI #3 diabetes #4 hyperlipidemia #5 accelerated hypertension #6 nicotine dependence, patient states she quit smoking in October #7 COPD #8 elevated d-dimer, rule out possibility of PE #9 anemia #10 abnormal troponins, 0.12, 0.31, 0.23, not suggestive of acute coronary syndrome, could be secondary to supply and demand mismatch. Patient denies having any chest discomfort. Plan Patient has severe aortic insufficiency, cardiac catheterization revealed mild to moderate coronary artery disease. Cardio thoracic surgery did see the patient in consultation and felt her to be high risk for surgery. Plan for discharge home today. Outpatient TAVR procedure will be scheduled. Follow-up with Dr. Vega. DNP note has been reviewed, I agree with a documented findings and plan of care. Patient was seen and examined.
[2018-12-12 16:41] LABS: Glucose,Whole Blood 161 mg/dL (75-99)
[2018-12-12 17:39] VITALS: BP 165/77; PULSE 72; RESP 20; TEMP 98.7
--- NOTE | 2018-12-13 05:30 | PN ---
PROGRESS NOTE Patient is seen for followup for acute kidney injury. She is status post cardiac catheterization yesterday. The patient did receive IV fluids tonight before. She was found to have mild to moderate triple-vessel disease and there was plan to proceed with redo aortic valve replacement. Serum creatinine had improved to 1.7 from 1.9 the day before. PHYSICAL EXAMINATION: On examination, this morning blood pressure was 161/69, heart rate 85 per minute. Patient is afebrile. EXAMINATION OF THE HEART: S1, S2. EXAMINATION OF THE LUNGS: Decreased breath sounds at the bases. Minimal basal crackles are heard. Abdomen is soft, nontender. Examination of the lower extremities shows no significant edema. LABS: Labs show serum creatinine 1.7, sodium 138, potassium 4.8, BUN of 28. ASSESSMENT: 1. Acute kidney injury, acute tubular necrosis and cardiorenal, currently slightly improved with creatinine going down to 1.7 from 1.9. The patient was diuresed aggressively initially. 2. Congestive heart failure, acute on top of chronic, mainly systolic. 3. Cardiomyopathy, ejection fraction 35% to 40%. 4. Aortic valve regurgitation with previous history of aortic valve replacement with bovine valve. PLAN: Okay to discharge the patient. She will follow up as outpatient in [place]. She can be discharged on 40 mg of Lasix p.o. daily. The patient will need labs to be done as outpatient in about one week's time. VLADISLAVL / LICHA: [id number] /
== END 2018-12-12 19:06 | disposition home health service (06) | DRG 286 ==
LOC: EC 23:24 → 3SCARD 12-04 00:45 → 2SICU 12-04 14:43 → 3SCARD 12-06 22:31
PROVIDERS: ADMIT Internal Medicine; ATTEND Internal Medicine
PROC: 5A09457 Assistance with Respiratory Ventilation, 24-96 Consecutive Hours, Continuous Positive Airway Pressure (ICD-10-PCS; 2018-12-04)
PROC: 4A023N6 Measurement of Cardiac Sampling and Pressure, Right Heart, Percutaneous Approach (ICD-10-PCS; principal; 2018-12-11 07:30)
PROC: B2111ZZ Fluoroscopy of Multiple Coronary Arteries using Low Osmolar Contrast (ICD-10-PCS; principal; 2018-12-11 07:30)
PROC: B31S1ZZ Fluoroscopy of Right Pulmonary Artery using Low Osmolar Contrast (ICD-10-PCS; principal; 2018-12-11 07:30)
DX: I13.0 Hypertensive heart and chronic kidney disease with heart failure and stage 1 through stage 4 chronic kidney disease, or unspecified chronic kidney disease (principal); I50.23 Acute on chronic systolic (congestive) heart failure; J96.01 Acute respiratory failure with hypoxia; N17.0 Acute kidney failure with tubular necrosis; I16.1 Hypertensive emergency; D50.9 Iron deficiency anemia, unspecified; E11.21 Type 2 diabetes mellitus with diabetic nephropathy; E11.22 Type 2 diabetes mellitus with diabetic chronic kidney disease; E66.9 Obesity, unspecified; Z68.28 Body mass index [BMI] 28.0-28.9, adult; E78.5 Hyperlipidemia, unspecified; F17.200 Nicotine dependence, unspecified, uncomplicated; I08.3 Combined rheumatic disorders of mitral, aortic and tricuspid valves; I25.10 Atherosclerotic heart disease of native coronary artery without angina pectoris; I27.20 Pulmonary hypertension, unspecified; I42.9 Cardiomyopathy, unspecified; I44.0 Atrioventricular block, first degree; I45.10 Unspecified right bundle-branch block; J44.9 Chronic obstructive pulmonary disease, unspecified; N18.3 Chronic kidney disease, stage 3 (moderate); R79.1 Abnormal coagulation profile; Z79.82 Long term (current) use of aspirin; Z79.899 Other long term (current) drug therapy; Z82.49 Family history of ischemic heart disease and other diseases of the circulatory system; Z95.1 Presence of aortocoronary bypass graft; Z95.3 Presence of xenogenic heart valve; Z98.84 Bariatric surgery status
CPT/HCPCS: 36600; 71045; 71046; 80048; 80053; 80061; 80074; 81001; 81003; 82550; 82553; 82805; 82810; 83036; 83735; 83880; 84100; 84443; 84484; 85018; 85025; 85027; 85049; 85379; 85610; 85730; 87070; 87086; 93005; 93306; 93312; 93320; 93325; 93460; 93880; 93970; 94150; 94660; 94760; 99285

== ENCOUNTER 2021-11-27 06:19 | Day surgery (SDC) | payer MEDICARE ==
[2021-11-25 10:24] VITALS: BMI 30.7
[2021-11-27 06:52] VITALS: TEMP 98.6
[2021-11-27 07:13] LABS: Glucose,Whole Blood 165 mg/dL (75-99)
[2021-11-27] MEDS ORDERED: SODIUM CHLORIDE 0.9% 500 ML 500 ML IV ONE (07:15)
[2021-11-27] MEDS ORDERED: VANCOMYCIN 1,000 MG in SODIUM CHLORIDE 0.9% 250 ML IVPB STA (07:17)
[2021-11-27 07:19] LABS: Basophils # (A) 0.1 k/uL (0-0.2); Basophils % (A) 1 %; Eosinophils # (A) 0.5 k/uL (0-0.7); Eosinophils % (A) 7 %; HCT 36.5 % (34.0-46.0); HGB 11.7 gm/dL (11.4-16.0); Hypochromasia Slight; Lymphocytes # (A) 1.2 k/uL (1.0-4.8); Lymphocytes % (A) 16 %; MCH 31.3 pg (25.0-35.0); Macrocytosis Slight; Mean Platelet Volume 9.4; Monocytes # (A) 0.5 k/uL (0-1.0); Monocytes % (A) 7 %; Neutrophils # (A) 4.8 k/uL (1.3-7.7); Neutrophils % (A) 68 %; Platelet Count 144 k/uL (150-450); RBC 3.72 m/uL (3.80-5.40); RDW 15.8 % (11.5-15.5); WBC 7.2 k/uL (3.8-10.6)
[2021-11-27] MEDS ORDERED: ONDANSETRON 4 MG/2 ML VIAL ONE (07:24)
[2021-11-27] MEDS ORDERED: DEXAMETHASONE SOD PHOSPHATE 4 MG/ML 1 ML VIAL IVP ONE (07:30)
[2021-11-27] MEDS ORDERED: ONDANSETRON 4 MG/2 ML VIAL IVP ONE (07:30)
[2021-11-27] MEDS ORDERED: MIDAZOLAM 2 MG/2 ML VIAL IVP ONE (07:35)
[2021-11-27 07:43] LABS: Calcium 8.8 mg/dL (8.4-10.2); Potassium 3.6 mmol/L (3.5-5.1)
[2021-11-27] MEDS ORDERED: HEPARIN SODIUM 1,000 UN/ML (10ML VL) ONE (07:56)
[2021-11-27] MEDS ORDERED: VERAPAMIL 2.5 MG/ML 2 ML AMP ONE (07:57)
--- NOTE | 2021-11-27 08:14 | P.ANPRN ---
Procedure Note - Anesthesia - Nerve Block Performed Right Supraclavicular Single Time Out Performed: Yes Date of Procedure: 11/27/21 Procedure Start Time: 07:34 Procedure Stop Time: 07:49 Location of Patient: PreOp Indication: Acute Post-Operative Pain, Requested by Surgeon Sedation Type: Sedate with meaningful contact maintained Preparation: Sterile Prep, Sterile Dressing Position: Supine Catheter: None Needle Types: Pajunk Needle Gauge: 20 Ultrasound used to visualize needle placement: Yes Ultrasound used to observe medication spread: Yes Injectate: 0.5% Ropivacaine (see comment for volume) (30 ml + decadron 4 mg) Narrative: Supplemented with axillary block Blood Aspirated: No Pain Paresthesia on Injection Noted: No Resistance on Injection: Normal Image Stored and Saved: Yes Events: Uneventful and Well Tolerated
[2021-11-27] MEDS ORDERED: DEXAMETHASONE SOD PHOSPHATE 4 MG/ML 1 ML VIAL ONE (08:25)
[2021-11-27] MEDS ORDERED: MIDAZOLAM 2 MG/2 ML VIAL ONE (08:25)
[2021-11-27] MEDS ORDERED: PHENYLEPHRINE-0.9% NACL SYG 1,000 MCG/10 ML SYRINGE ONE (08:25)
[2021-11-27] MEDS ORDERED: ROPIVACAINE 5 MG/ML 30 ML VIAL ONE (08:25)
[2021-11-27] MEDS ORDERED: LIDOCAINE 1% INJ 10MG/ML (20 ML MDV) ONE (09:00)
[2021-11-27] MEDS ORDERED: LIDOCAINE 1% INJ 10MG/ML (20 ML MDV) SQ ONE (09:04)
--- NOTE | 2021-11-27 12:05 | P.OP ---
Date of Procedure: 11/27/21 Preoperative Diagnosis: ESRD on HD Postoperative Diagnosis: ESRD on HD Procedure(s) Performed: 1. Ultrasound guided brachial artery and vein access 2. Selective right upper extremity angiogram 3. Selective right upper extremity venogram 4. Percutaneous endovascular ulnar-ulnar fistula creation with WavelinQ 5. Right upper extremity fistulagram Anesthesia: MAC Surgeon: Sai Iqbal Estimated Blood Loss (ml): 10 Pathology: none sent Condition: stable Disposition: PACU Indications for Procedure: 81 year old female with history of ESRD on HD via right sided chest catheter presented to the office of Dr. Paris for planning of AVF creation. Upon evaluation and vein mapping the patient was a candidate for endovascular fistula creation and presents to the hospital for such procedure. Description of Procedure: After written and informed consent was obtained from the patient and all risks, benefits, and complications were discussed the patient was brought to the operative suite and laid in a supine position with her right arm outstretched on an arm board. A block was performed in PACU per anesthesia. The area of the right arm was prepped and draped in the usual fashion. Time out was performed and antibiotics were administered prior to access. Under ultrasound guidance the right brachial artery and vein were accessed and a 5F sheath was placed in each vessel utilizing Seldinger technique. Once access was obtained a 5000 units heparin, 2.5mg verapamil and 50mcg of nitro mixture was injected into the artery and vein. Selective angiogram was then obtained through the brachial artery sheath demonstrating good radial and ulnar anatomy. A venogram was also obtained demonstrating a good size post manager. The ulnar veins were diminuitive at the wrist and distal forearm but good size at the desired fistula site. An 018 wire was attempted to be placed into the ulnar vein distally at first without success and therefore attempt at the other brachial vein was attempted without success. We also attempted to access the ulnar vein at the wrist to try to give a better access for the fistula attempt which we were unable to obtain due to the size of the vein. Attention was placed back to the brachial vein and a tourniquet was placed above the access which opened the valves slightly and we were able to place the wires across into the ulnar vein. Once the 014 wires were placed into the ulnar vein and artery and lined up well at the radial tuberosity the WavelinQ catheters were then placed. The [employer] 4F WavelinQ arterial catheter was then advanced in a monorail fashion over the 014 wire to the designated fistula site. The Bard 4F WavelinQ venous catheter was then guided to the same location. The filament on the venous catheter was seen bowing at the arterial catheter site indicating appropriate coaptation. Once this was deemed adequate the wires were removed and the catheters were turned on and the fistula was created with good coaptation. The catheter was fired twice due to the filament not completely coaptating the first time. Once completed the venous catheter was removed and fistulagram was performed demonstrating good fistula creation with filling of the cephalic and basilic veins. The basilic and cephalic veins appeared to be robust and brachial vein was diminutive and therefore decision to forego brachial vein embolization. All catheters and sheaths were removed and pressure was held for hemostasis. The area was cleaned and dressings were placed. Plan - Discharge Summary Discharge Rx Participant: Yes New Discharge Prescriptions: No Action Ubidecarenone [Co Q-10] 100 mg PO DAILY Omeprazole [PriLOSEC] 20 mg PO DAILY Multivitamins, Thera [Multivitamin (formulary)] 1 tab PO DAILY Ferrous Sulfate [Iron (65 MG Elemental)] 325 mg PO DAILY Citalopram Hydrobromide [CeleXA] 40 mg PO DAILY Gabapentin [Neurontin] 300 mg PO TID Furosemide [Lasix] 40 mg PO DAILY Ergocalciferol (Vitamin D2) [Vitamin D2] 50,000 unit PO Q7D Aspirin EC [Ecotrin Low Dose] 162 mg PO DAILY Atorvastatin [Lipitor] 40 mg PO HS Isosorbide Mononitrate ER [Imdur] 30 mg PO DAILY #30 tab.er.24h Insulin Glargine,Hum.rec.anlog [Lantus Solostar Pen] 9 unit SQ BID NIFEdipine XL [Procardia XL] 60 mg PO DAILY Alendronate Sodium [Fosamax] 70 mg PO WEEKLY Losartan [Cozaar] 50 mg PO HS Discharge Medication List Aspirin EC [Ecotrin Low Dose] 162 mg PO DAILY 12/03/18 [History] Atorvastatin [Lipitor] 40 mg PO HS 12/03/18 [History] Citalopram Hydrobromide [CeleXA] 40 mg PO DAILY 12/03/18 [History] Ergocalciferol (Vitamin D2) [Vitamin D2] 50,000 unit PO Q7D 12/03/18 [History] Ferrous Sulfate [Iron (65 MG Elemental)] 325 mg PO DAILY 12/03/18 [History] Furosemide [Lasix] 40 mg PO DAILY 12/03/18 [History] Gabapentin [Neurontin] 300 mg PO TID 12/03/18 [History] Multivitamins, Thera [Multivitamin (formulary)] 1 tab PO DAILY 12/03/18 [History] Omeprazole [PriLOSEC] 20 mg PO DAILY 12/03/18 [History] Ubidecarenone [Co Q-10] 100 mg PO DAILY 12/03/18 [History] Isosorbide Mononitrate ER [Imdur] 30 mg PO DAILY #30 tab.er.24h 12/12/18 [Rx] Alendronate Sodium [Fosamax] 70 mg PO WEEKLY 11/25/21 [History] Insulin Glargine,Hum.rec.anlog [Lantus Solostar Pen] 9 unit SQ BID 11/25/21 [History] Losartan [Cozaar] 50 mg PO HS 11/25/21 [History] NIFEdipine XL [Procardia XL] 60 mg PO DAILY 11/25/21 [History] Follow up Appointment(s)/Referral(s): Flory Paris DO [STAFF PHYSICIAN] - 2 Weeks Discharge Disposition: HOME SELF-CARE
[2021-11-27 17:07] VITALS: RESP 16
[2021-11-27 17:11] VITALS: BP 103/55; PULSE 52
--- NOTE | 2021-11-28 06:20 | IR ---
EXAMINATION TYPE: IR angio upper extremity RT DATE OF EXAM: 11/27/2021 CLINICAL HISTORY: Failed dialysis. TECHNIQUE: Fluoroscopy. COMPARISON: None. FINDINGS: Fluoroscopic guidance was provided during right upper extremity fistulogram procedure perf ormed by Dr. Iqbal. A total of estimated 120 seconds of fluoroscopic time was utilized during the procedure and 507 spot images was acquired. Please refer to procedure note for further details. IMPRESSION: As Above.
== END 2021-11-27 14:42 | disposition home or self-care (01) ==
LOC: CATHCVL 06:19
PROVIDERS: ATTEND Surgery
DX: N18.6 End stage renal disease (principal); Z99.2 Dependence on renal dialysis
CPT/HCPCS: 36821; 64999; 76942; 80048; 85025; G2171; J2250; J1100; J2405; J2001; J2795; J2370

== ENCOUNTER 2022-01-29 07:00 | Day surgery (SDC) | payer MEDICARE ==
[2022-01-28 08:35] VITALS: BMI 26.9
[2022-01-29 07:37] LABS: Glucose,Whole Blood 80 mg/dL (75-99)
[2022-01-29] MEDS ORDERED: SODIUM CHLORIDE 0.9% 1,000 ML IV ONE (07:45)
[2022-01-29 07:47] LABS: Basophils # (A) 0.1 k/uL (0-0.2); Basophils % (A) 1 %; Eosinophils # (A) 0.7 k/uL (0-0.7); Eosinophils % (A) 8 %; HCT 39.8 % (34.0-46.0); HGB 12.4 gm/dL (11.4-16.0); Lymphocytes # (A) 2.1 k/uL (1.0-4.8); Lymphocytes % (A) 22 %; MCH 29.6 pg (25.0-35.0); MCHC 31.1 g/dL (31.0-37.0); Monocytes # (A) 0.6 k/uL (0-1.0); Monocytes % (A) 7 %; Neutrophils # (A) 5.8 k/uL (1.3-7.7); Neutrophils % (A) 61 %; Platelet Count 158 k/uL (150-450); RBC 4.19 m/uL (3.80-5.40); RDW 13.7 % (11.5-15.5); WBC 9.4 k/uL (3.8-10.6)
[2022-01-29 08:14] LABS: Calcium 8.9 mg/dL (8.4-10.2); Potassium 4.2 mmol/L (3.5-5.1)
[2022-01-29] MEDS ORDERED: LIDOCAINE 1% INJ 10MG/ML (20 ML MDV) ONE (08:27)
[2022-01-29 08:31] VITALS: RESP 18; TEMP 98.8
[2022-01-29] MEDS ORDERED: LIDOCAINE 1% INJ 10MG/ML (20 ML MDV) SQ ONE (08:46)
[2022-01-29] MEDS: MIDAZOLAM 2 MG/2 ML VIAL IV ONE ×2 (08:48→09:13)
[2022-01-29] MEDS ORDERED: VERAPAMIL 2.5 MG/ML 2 ML AMP ONE (08:52)
[2022-01-29] MEDS ORDERED: HEPARIN SODIUM 1,000 UN/ML (10ML VL) ONE (08:52)
[2022-01-29] MEDS ORDERED: IOPAMIDOL-370 100ML BTL INJ ONE (10:25)
[2022-01-29 14:08] VITALS: BP 107/56; PULSE 65
--- NOTE | 2022-02-01 08:04 | IR ---
EXAMINATION TYPE: IR airplane captain venous DATE OF EXAM: 01/29/2022 COMPARISON: NONE HISTORY: Fluoroscopy time. Fluoroscopy was provided to the referring clinician.
--- NOTE | 2022-02-04 08:19 | P.OP ---
Date of Procedure: 01/29/22 Preoperative Diagnosis: Dysfunctional right upper extremity AVF, ESRD Postoperative Diagnosis: Same Procedure(s) Performed: Ultrasound guided right ulnar artery access Right upper extremity fistulagram PTBA of ulnar-ulnar anastomosis Percutaneous coiling of the lateral brachial vein and a branch of the medial brachial vein Anesthesia: local Surgeon: Sai Iqbal Estimated Blood Loss (ml): 15 Pathology: none sent Condition: stable Disposition: PACU Indications for Procedure: 82 year old female with history of ESRD on HD via right chest catheter presents after ultrasound of the right upper extremity arteriovenous fistula demonstrated poor flows through the cephalic vein and presents today for fistulagram and embolization and re-direct flow to the cephalic vein. Operative Findings: flow directed to the brachial vein and decreased flow to the cephalic vein prior to coiling. After coils placed improved flow to the cephalic and basilic veins. Description of Procedure: After written informed consent was obtained the patient was brought to the laborer and laid in a supine position. The area of the right arm was prepped and draped in the usual fashion. The right ulnar artery was located under ultrasound guidance and cannulated with a micro access needle after local anesthetic was placed. A guidewire was placed followed by a 5F sheath. A retrograde angiogram was then obtained demonstrating patent fistula with filling of the brachial vein and slow filling of the cephalic and basilic veins. A guidewire was then placed across the anastomosis into the chalker soles and ultimately into the medial brachial vein. The basilic vein was extremely short and dove into the brachial vein just above the elbow. Due to the flow preferentially flowing into the brachial veins the decision was made to coil the medial and a branch of the lateral brachial vein to change the flow to the cephalic vein. A catheter was placed into the medial brachial vein and utilizing a micro catheter a Penumbra coil was placed into the medial brachial vein with improved flow to the cephalic vein but still not as brisk and therefore the catheter was guided into the brach of the medial brachial vein and another coil was placed in usual fashion. Once completed there was better flow to the cephalic vein. When compared to the ultrasound there was question to inflow and therefore the chalker soles and anastomosis was ballooned with a 4x40mm balloon. Once completed a final fistulagram was obtained demonstrating better flow to the cephalic vein. All guidewires and catheters were then removed and pressure was held for hemostasis. The patient tolerated the procedure well and was sent to recovery. Plan - Discharge Summary Discharge Rx Participant: No New Discharge Prescriptions: No Action Omeprazole [PriLOSEC] 20 mg PO BID Citalopram Hydrobromide [CeleXA] 20 mg PO DAILY Gabapentin [Neurontin] 300 mg PO DAILY Aspirin EC [Ecotrin Low Dose] 81 mg PO DAILY Atorvastatin [Lipitor] 40 mg PO HS Isosorbide Mononitrate ER [Imdur] 30 mg PO DAILY #30 tab.er.24h Insulin Glargine,Hum.rec.anlog [Lantus Solostar Pen] 9 unit SQ BID NIFEdipine XL [Procardia XL] 60 mg PO DAILY Alendronate Sodium [Fosamax] 70 mg PO WEEKLY Vitamin B Complex 1 each PO DAILY Calcium Acetate 667 mg PO TID Losartan [Cozaar] 50 mg PO HS Ubidecarenone [Co Q-10] 200 mg PO DAILY Furosemide [Lasix] 80 mg PO DAILY Discharge Medication List Aspirin EC [Ecotrin Low Dose] 81 mg PO DAILY 12/03/18 [History] Atorvastatin [Lipitor] 40 mg PO HS 12/03/18 [History] Citalopram Hydrobromide [CeleXA] 20 mg PO DAILY 12/03/18 [History] Gabapentin [Neurontin] 300 mg PO DAILY 12/03/18 [History] Omeprazole [PriLOSEC] 20 mg PO BID 12/03/18 [History] Isosorbide Mononitrate ER [Imdur] 30 mg PO DAILY #30 tab.er.24h 12/12/18 [Rx] Alendronate Sodium [Fosamax] 70 mg PO WEEKLY 11/25/21 [History] Insulin Glargine,Hum.rec.anlog [Lantus Solostar Pen] 9 unit SQ BID 11/25/21 [History] Losartan [Cozaar] 50 mg PO HS 11/25/21 [History] NIFEdipine XL [Procardia XL] 60 mg PO DAILY 11/25/21 [History] Calcium Acetate 667 mg PO TID 01/28/22 [History] Furosemide [Lasix] 80 mg PO DAILY 01/28/22 [History] Ubidecarenone [Co Q-10] 200 mg PO DAILY 01/28/22 [History] Vitamin B Complex 1 each PO DAILY 01/28/22 [History] Follow up Appointment(s)/Referral(s): Sai Iqbal DO [STAFF PHYSICIAN] - 2 Weeks (OFFICE CLOSED AT THIS TIME PLEASE CALL TO MAKE YOUR APPOINTMENT) Patient Instructions/Handouts: Moderate Sedation (ED), Fistulogram (DC) Activity/Diet/Wound Care/Special Instructions: *NO LIFTING, PUSHING, OR PULLING ANYTHING OVER 5 POUND FOR 5 DAYS *NO DRIVING FOR 3 DAYS *YOU CAN SHOWER TOMORROW BUT DO NOT SUBMERSE YOUR PUNCTURE SITE IN WATER FOR A FEW DAYS TO PREVENT INFECTION - SO NO TUB BATHS, POOLS, HOT TUBS, DISHES.....ETC *ANY SIGNS OF BLEEDING (HARDNESS, SWELLING, OR EXCESSIVE BRUISING) HOLD DIRECT PRESSURE ON YOUR PUNCTURE SITE AND COME TO THE NEAREST EMERGENCY ROOM TO GET YOUR PUNCTURE SITE LOOKED AT - DO NOT DRIVE YOURSELF! EITHER CALL EMS OR HAVE SOMEONE DRIVE YOU! Discharge Disposition: HOME SELF-CARE
== END 2022-01-29 14:36 | disposition home or self-care (01) ==
LOC: CATHCVL 07:00
PROVIDERS: ATTEND Surgery
DX: N18.6 End stage renal disease (principal); E11.9 Type 2 diabetes mellitus without complications; Z87.891 Personal history of nicotine dependence
CPT/HCPCS: 80048; 85025; 37248; C1894 ×3; C1769 ×5; C1725; C1887; J2250; J2001; Q9967

== ENCOUNTER 2022-03-19 11:40 | Day surgery (SDC) | payer MEDICARE ==
[2022-03-18 09:07] VITALS: BMI 27.1
[2022-03-19] MEDS ORDERED: fentaNYL (PF) 50 MCG/ML 2 ML AMP IV PRN (12:21)
[2022-03-19] MEDS ORDERED: LACTATED RINGERS 1,000 ML IV SCH (12:21)
[2022-03-19] MEDS ORDERED: ONDANSETRON 4 MG/2 ML VIAL ONE (12:57)
[2022-03-19 12:59] LABS: Glucose,Whole Blood 84 mg/dL (75-99)
[2022-03-19] MEDS ORDERED: ONDANSETRON 4 MG/2 ML VIAL IVP ONE (13:19)
[2022-03-19] MEDS ORDERED: DEXAMETHASONE SOD PHOSPHATE 4 MG/ML 1 ML VIAL IVP ONE (13:19)
[2022-03-19] MEDS ORDERED: GLYCOPYRROLATE 0.2 MG/ML 2 ML VIAL ONE (13:50)
[2022-03-19] MEDS ORDERED: PROPOFOL 10 MG/ML 20 ML VIAL IV ONE (13:50)
[2022-03-19] MEDS ORDERED: MIDAZOLAM 2 MG/2 ML VIAL ONE (13:50)
[2022-03-19] MEDS ORDERED: fentaNYL (PF) 50 MCG/ML 2 ML AMP ONE (13:50)
[2022-03-19] MEDS ORDERED: LIDOCAINE 2% INJ 20 MG/ML (2 ML VIAL) ONE (13:50)
[2022-03-19] MEDS ORDERED: ePHEDrine 50 MG/ML 1 ML VIAL ONE (13:50)
[2022-03-19] MEDS ORDERED: SUCCINYLCHOLINE CHLORIDE 100 MG/5 ML SYR IV ONE (13:50)
[2022-03-19] MEDS ORDERED: NEOSTIGMINE 1 MG/ML 10 ML VIAL ONE (13:50)
[2022-03-19] MEDS ORDERED: ROCURONIUM 10 MG/ML (5 ML VIAL) IV ONE (13:50)
[2022-03-19] MEDS ORDERED: LIDOCAINE 1% INJ 10MG/ML (5 ML VIAL-PF) SQ ONE (14:12)
[2022-03-19] MEDS ORDERED: HEPARIN SODIUM,PORCINE 2,000 UNIT in SODIUM CHLORIDE 0.9% 500 ML 500 ML IRRIGATION ONE (14:16)
[2022-03-19] MEDS ORDERED: ceFAZolin 2,000 MG in SODIUM CHLORIDE 0.9% 500 ML 500 ML IRRIGATION ONE (14:17)
--- NOTE | 2022-03-19 15:48 | P.OP ---
Date of Procedure: 03/19/22 Preoperative Diagnosis: End-stage renal disease Postoperative Diagnosis: Same Procedure(s) Performed: Right upper extremity brachiocephalic fistula creation Anesthesia: HARIKA Surgeon: Sai Iqbal Estimated Blood Loss (ml): 5 Pathology: none sent Condition: stable Disposition: PACU Indications for Procedure: 82-year-old female with history of incisional disease on hemodialysis via right- sided tunneled catheter with previous history of right upper extremity percutaneous fistula creation which did not mature well enough for utilization. She had ultrasound which demonstrated increased size of her cephalic vein and she presents today for brachiocephalic fistula creation. Description of Procedure: After written and informed consent was obtained from the patient the patient was brought to the operative suite and laid in a supine position. The right arm was prepped and draped in the usual sterile fashion after appropriate anesthesia was performed per the anesthesiologist. Utilizing ultrasound the cephalic vein was visualized and marked and shown to be good size. A transverse incision was then created with a 15 blade scalpel just proximal to the elbow and dissection was carried down to the brachial artery which was dissected free in a circumferential manner. Proximal distal control was then obtained with vessel loops. Attention was then placed back to the cephalic vein which was located and dissected free in a circumferential manner distally to the elbow. At the elbow it was ligated with silk suture. Further dissection was carried around the vein and the vein was brought over to the brachial artery. Serial dilation was then performed on the vein and good backbleeding was noted. Patient was administered 3000 units of heparin and the brachial artery was clamped at the proximal and distal aspect. Utilizing 11 blade scalpel and arteriotomy was created and extended with Pott Patrick scissors. There was good brisk backbleeding noted from the brachial artery and pulsatile blood flow visualized from the proximal aspect. The vein was then spatulated and an end-to-side anastomosis was created with a 6-0 Prolene suture. Prior to last sutures being placed the control was released from the vein revealing good backbleeding and distal control on the brachial artery was released revealing good back flow. The proximal control was then released and good pulsatile blood flow was visualized in the fistula and final sutures were secured. The area was copiously irrigated with antibiotic solution. Hemostasis was assured. The fistula demonstrated positive thrill. The incision was then closed in a multilayer fashion. The skin was cleansed and dressings were placed. Patient does procedure well and was sent to PACU for recovery. Plan - Discharge Summary Discharge Rx Participant: No New Discharge Prescriptions: No Action Omeprazole [PriLOSEC] 20 mg PO BID Citalopram Hydrobromide [CeleXA] 20 mg PO DAILY Gabapentin [Neurontin] 300 mg PO HS Aspirin EC [Ecotrin Low Dose] 81 mg PO DAILY Atorvastatin [Lipitor] 40 mg PO HS Isosorbide Mononitrate ER [Imdur] 30 mg PO DAILY #30 tab.er.24h Insulin Glargine,Hum.rec.anlog [Lantus Solostar Pen] 9 unit SQ BID NIFEdipine XL [Procardia XL] 60 mg PO BID Vitamin B Complex 1 each PO DAILY Calcium Acetate 667 mg PO TID Losartan [Cozaar] 50 mg PO HS Ubidecarenone [Co Q-10] 200 mg PO DAILY Furosemide [Lasix] 80 mg PO BID Discharge Medication List Aspirin EC [Ecotrin Low Dose] 81 mg PO DAILY 12/03/18 [History] Atorvastatin [Lipitor] 40 mg PO HS 12/03/18 [History] Citalopram Hydrobromide [CeleXA] 20 mg PO DAILY 12/03/18 [History] Gabapentin [Neurontin] 300 mg PO HS 12/03/18 [History] Omeprazole [PriLOSEC] 20 mg PO BID 12/03/18 [History] Isosorbide Mononitrate ER [Imdur] 30 mg PO DAILY #30 tab.er.24h 12/12/18 [Rx] Insulin Glargine,Hum.rec.anlog [Lantus Solostar Pen] 9 unit SQ BID 11/25/21 [History] Losartan [Cozaar] 50 mg PO HS 11/25/21 [History] NIFEdipine XL [Procardia XL] 60 mg PO BID 11/25/21 [History] Calcium Acetate 667 mg PO TID 01/28/22 [History] Furosemide [Lasix] 80 mg PO BID 01/28/22 [History] Ubidecarenone [Co Q-10] 200 mg PO DAILY 01/28/22 [History] Vitamin B Complex 1 each PO DAILY 01/28/22 [History] Follow up Appointment(s)/Referral(s): Sai Iqbal DO [STAFF PHYSICIAN] - 2 Weeks Activity/Diet/Wound Care/Special Instructions: no heavy lifting greater than 15 lbs x 2 weeks. Discharge Disposition: HOME SELF-CARE
[2022-03-19 16:12] VITALS: TEMP 97.1
[2022-03-19 16:43] LABS: Glucose,Whole Blood 113 mg/dL (75-99)
[2022-03-19 16:55] VITALS: BP 125/51; PULSE 57; RESP 16
== END 2022-03-19 17:27 | disposition home or self-care (01) ==
LOC: OR 11:40
PROVIDERS: ATTEND Surgery
DX: N18.6 End stage renal disease (principal); E11.22 Type 2 diabetes mellitus with diabetic chronic kidney disease; E13.42 Other specified diabetes mellitus with diabetic polyneuropathy; Z99.2 Dependence on renal dialysis; Z82.49 Family history of ischemic heart disease and other diseases of the circulatory system; Z87.891 Personal history of nicotine dependence; I25.10 Atherosclerotic heart disease of native coronary artery without angina pectoris; I08.0 Rheumatic disorders of both mitral and aortic valves; I65.29 Occlusion and stenosis of unspecified carotid artery; Z86.73 Personal history of transient ischemic attack (TIA), and cerebral infarction without residual deficits; Z79.4 Long term (current) use of insulin; Z79.82 Long term (current) use of aspirin; Z79.899 Other long term (current) drug therapy
CPT/HCPCS: 36821; J2250; J1644; J1100; J2710; J0690 ×2; J2405; J2001 ×2; J3010; J0330; J2704

== ENCOUNTER → 2022-10-12 | Day surgery (SDC) | payer MEDICARE ==
[~2022-10-12] MED LIST: IOPAMIDOL-250 100ML BTL INTRAARTER ONE; LIDOCAINE 1% INJ 10MG/ML (30 ML VIAL-PF) SQ ONE; MIDAZOLAM 2 MG/2 ML VIAL IV ONE; SODIUM CHLORIDE 0.9% 1,000 ML IV SCH; SODIUM CHLORIDE 0.9% 50 ML BAG IV SCH; fentaNYL (PF) 50 MCG/ML 2 ML AMP IV ONE; fentaNYL (PF) 50 MCG/ML 2 ML AMP ONE
[2022-10-12 06:33] LABS: Glucose,Whole Blood 161 mg/dL (70-110)
[2022-10-12 07:06] LABS: HCT 35.8 % (34.0-46.0); HGB 11.8 gm/dL (11.4-16.0); MCH 32.2 pg (25.0-35.0); MCV 97.6 fL (80.0-100.0); Mean Platelet Volume 9.7; Platelet Count 172 k/uL (150-450); RBC 3.67 m/uL (3.80-5.40); RDW 13.9 % (11.5-15.5)
[2022-10-12 07:19] LABS: Calcium 8.5 mg/dL (8.4-10.2)
[2022-10-12 07:21] VITALS: RESP 16; TEMP 98.7
[2022-10-12 07:29] LABS: Potassium 4.6 mmol/L (3.5-5.1)
--- NOTE | 2022-10-12 08:14 | P.OP ---
Date of Procedure: 10/12/22 Description of Procedure: Preoperative diagnosis: Malfunctioning right upper extremity arteriovenous fistula Postoperative diagnosis: Patent right upper extremity arteriovenous fistula Procedure: Right Upper extremity fistulogram with ultrasound guided access Surgeon: Sai Iqbal DO Anesthesia : Local Estimated blood loss: Minimal Complications: None Condition: Stable Disposition: Palpable thrill right upper extremity arteriovenous fistula Indications: 82-year-old female with history of right upper extremity arteriovenous fistula presented to the office secondary to increased issues with her access. She states they're having clots when they access and are also having difficulty with access. She states over the last couple weeks they have improved slightly. She did have an ultrasound which demonstrated possible stenosis or increased flows within the fistula site. Operative narrative: After written informed consent was obtained the patient all risks benefits competitions were described the patient is brought to the [facility] and laid in a supine position with their right arm outstretched on an armboard. The area of the arm was prepped and draped in usual sterile fashion. Utilizing local anesthetic the fistula was accessed under ultrasound guidance and a micro-access sheath was placed. Fistulogram was then obtained demonstrating widely patent brachiocephalic fistula without any evidence of stenosis. Central venogram also demonstrated widely patent subclavian vein and superior vena cava without any significant stenosis. Inflow was assessed demonstrating no evidence of stenosis. There was a branch coming off of the proximal aspect of the fistula which backbled into the basilic vein. All guidewires and catheters were then removed sheath was removed and pressure was held for hemostasis. She was then sent to PACU for recovery. She'll follow-up in the office for removal of her tunneled hemodialysis catheter after access is consistent for the next week. Plan - Discharge Summary Discharge Rx Participant: No New Discharge Prescriptions: No Action Omeprazole [PriLOSEC] 20 mg PO BID Citalopram Hydrobromide [CeleXA] 40 mg PO DAILY Gabapentin [Neurontin] 300 mg PO HS Aspirin EC [Ecotrin Low Dose] 81 mg PO DAILY Atorvastatin [Lipitor] 40 mg PO HS Isosorbide Mononitrate ER [Imdur] 30 mg PO DAILY #30 tab.er.24h Insulin Glargine,Hum.rec.anlog [Lantus Solostar Pen] 10 unit SQ DAILY NIFEdipine XL [Procardia XL] 60 mg PO DAILY Vitamin B Complex 1 each PO MOWEFR Calcium Acetate 667 mg PO TID Losartan [Cozaar] 50 mg PO HS Furosemide [Lasix] 80 mg PO DAILY Magnesium 250 mg PO DAILY Alendronate Sodium 70 mg PO MO Discharge Medication List Aspirin EC [Ecotrin Low Dose] 81 mg PO DAILY 12/03/18 [History] Atorvastatin [Lipitor] 40 mg PO HS 12/03/18 [History] Citalopram Hydrobromide [CeleXA] 40 mg PO DAILY 12/03/18 [History] Gabapentin [Neurontin] 300 mg PO HS 12/03/18 [History] Omeprazole [PriLOSEC] 20 mg PO BID 12/03/18 [History] Isosorbide Mononitrate ER [Imdur] 30 mg PO DAILY #30 tab.er.24h 12/12/18 [Rx] Insulin Glargine,Hum.rec.anlog [Lantus Solostar Pen] 10 unit SQ DAILY 11/25/21 [History] Losartan [Cozaar] 50 mg PO HS 11/25/21 [History] NIFEdipine XL [Procardia XL] 60 mg PO DAILY 11/25/21 [History] Calcium Acetate 667 mg PO TID 01/28/22 [History] Furosemide [Lasix] 80 mg PO DAILY 01/28/22 [History] Vitamin B Complex 1 each PO MOWEFR 01/28/22 [History] Alendronate Sodium 70 mg PO MO 10/07/22 [History] Magnesium 250 mg PO DAILY 10/07/22 [History] Follow up Appointment(s)/Referral(s): Sai Iqbal DO [STAFF PHYSICIAN] - 1 Week Discharge Disposition: HOME SELF-CARE
--- NOTE | 2022-10-12 09:08 | IR ---
EXAMINATION TYPE: IR angio upper extremity RT DATE OF EXAM: 10/12/2022 COMPARISON: NONE HISTORY: Fluoroscopy time. Fluoroscopy was provided to the referring clinician.
[2022-10-12 09:56] VITALS: BP 125/60; PULSE 68
== END | disposition home or self-care (01) ==
LOC: CATHCVL 05:46
PROVIDERS: ATTEND Surgery
DX: E11.22 Type 2 diabetes mellitus with diabetic chronic kidney disease (principal); N18.6 End stage renal disease; Z99.2 Dependence on renal dialysis; I13.11 Hypertensive heart and chronic kidney disease without heart failure, with stage 5 chronic kidney disease, or end stage renal disease; Z79.4 Long term (current) use of insulin; E78.5 Hyperlipidemia, unspecified; F41.9 Anxiety disorder, unspecified; G45.9 Transient cerebral ischemic attack, unspecified; Z98.0 Intestinal bypass and anastomosis status; Z82.49 Family history of ischemic heart disease and other diseases of the circulatory system; Z87.891 Personal history of nicotine dependence; Z91.030 Bee allergy status; Z79.01 Long term (current) use of anticoagulants; Z79.02 Long term (current) use of antithrombotics/antiplatelets; Z79.1 Long term (current) use of non-steroidal anti-inflammatories (NSAID); Z79.2 Long term (current) use of antibiotics; Z79.811 Long term (current) use of aromatase inhibitors; Z79.891 Long term (current) use of opiate analgesic; Z79.899 Other long term (current) drug therapy; Z79.82 Long term (current) use of aspirin
CPT/HCPCS: 36901; 80048; 85027; C1769 ×3; J2250; J2001; J3010; Q9966

== ENCOUNTER 2023-12-09 10:05 | Inpatient (IN) | payer MEDICARE ==
[2023-12-09 10:25] VITALS: TEMP 97
--- NOTE | 2023-12-09 10:36 | ED ---
Recheck HPI - General Chief Complaint: Recheck/Abnormal Lab/Rx Stated Complaint: Hypotension Time Seen by Provider: 12/09/23 10:17 Source: patient, RN notes reviewed Mode of arrival: EMS Limitations: no limitations - History of Present Illness Initial Comments: This is an 83-year-old female who presents to the emergency department for hypotension. Patient was midway through dialysis, when she was told that her blood pressure dropped to 70/30. BP then normalized with KVO IV. States that she did not have any symptoms when the hypotension occurred. Also states that this has happened before, but has not gotten that low. States that she currently feels tired but attributes this to not sleeping well last night. She otherwise denies any complaints such as chest pain, shortness of breath, abdominal pain, nausea, or vomiting. She does get hemodialysis Tuesday, Tuesday, and Tuesday, and states that she has been on dialysis for about 2 years. She does still make her own urine, but states that it is very little. - Related Data Home Medications Medication Instructions Recorded Confirmed Atorvastatin [Lipitor] 40 mg PO HS 12/03/18 10/12/22 Gabapentin [Neurontin] 300 mg PO HS 12/03/18 08/01/23 Omeprazole [PriLOSEC] 20 mg PO BID 12/03/18 08/01/23 Insulin Glargine,Hum.rec.anlog 8 unit SQ HS 11/25/21 08/01/23 [Lantus Solostar Pen] Losartan [Cozaar] 50 mg PO HS 11/25/21 08/01/23 Calcium Acetate 2 tab PO TID-W/MEALS 01/28/22 08/01/23 Furosemide [Lasix] 80 mg PO DAILY 01/28/22 08/01/23 Apixaban [Eliquis] 2.5 mg PO BID 08/01/23 08/01/23 Citalopram Hydrobromide 20 mg PO DAILY 08/01/23 08/01/23 [Citalopram HBr] Magnesium 200 mg PO DAILY 08/01/23 08/01/23 Nifedipine (Unknown Dose) 1 tab PO HS 08/01/23 Ubidecarenone [Co Q-10] 200 mg PO DAILY 08/01/23 08/01/23 Previous Rx's Medication Instructions Recorded Isosorbide Mononitrate ER [Imdur] 30 mg PO DAILY #30 tab.er.24h 12/12/18 Allergies Allergy/AdvReac Type Severity Reaction Status Date / Time No Known Allergies Allergy Verified 12/09/23 10:16 Review of Systems ROS Statement: Those systems with pertinent positive or pertinent negative responses have been documented in the HPI. ROS Other: All systems not noted in ROS Statement are negative. Past Medical History Past Medical History: Coronary Artery Disease (CAD), Diabetes Mellitus, GERD /Reflux, Hearing Disorder / Deafness, Hyperlipidemia, Hypertension, Osteoarthritis (OA), Pulmonary Embolus (PE), Renal Disease Additional Past Medical History / Comment(s): hemodialysis [place]., Hard of hearing., Hx PE many years ago., hx tia (affected right eye ), states poor vision- does not have glasses , anemia, frequent diarrhea. History of Any Multi-Drug Resistant Organisms: None Reported Past Surgical History: Bariatric Surgery Additional Past Surgical History / Comment(s): Aortic valve replacement X3. LEFT CAROTID ENDARTECTOMY WITH STENT. gastric bypass, fistula rt arm for dialysis. , left subclavian stent. Past Anesthesia/Blood Transfusion Reactions: No Reported Reaction Past Psychological History: Depression Smoking Status: Current every day smoker, Heavy tobacco smoker Past Alcohol Use History: None Reported Past Drug Use History: None Reported - Past Family History Mother Family Medical History: Coronary Artery Disease (CAD) Father Family Medical History: Coronary Artery Disease (CAD) Additional Family Medical History / Comment(s): FATHER PASSED AT AGE 49. General Exam Limitations: no limitations General appearance: alert, in no apparent distress Head exam: Present: atraumatic, normocephalic, normal inspection Respiratory exam: Present: normal lung sounds bilaterally. Absent: respiratory distress, wheezes, rales, rhonchi, stridor Cardiovascular Exam: Present: regular rate, normal rhythm, normal heart sounds. Absent: systolic murmur, diastolic murmur, rubs, gallop, clicks Neurological exam: Present: alert Psychiatric exam: Present: normal affect, normal mood Skin exam: Present: warm, dry, intact, normal color. Absent: rash Course Vital Signs 12/09/23 12/09/23 12/09/23 10:06 11:31 14:20 Temperature 97 F L Pulse Rate 62 60 75 Respiratory 18 18 17 Rate Blood Pressure 109/57 124/69 91/59 O2 Sat by Pulse 98 96 96 Oximetry 12/09/23 12/09/23 12/09/23 16:00 16:59 17:00 Temperature Pulse Rate 63 62 Respiratory 17 18 Rate Blood Pressure 100/58 86/50 103/89 O2 Sat by Pulse 92 L 96 Oximetry 12/09/23 12/09/23 12/09/23 17:15 17:30 17:45 Temperature Pulse Rate 62 61 58 L Respiratory Rate Blood Pressure 85/40 99/40 103/89 O2 Sat by Pulse 94 L 92 L 95 Oximetry 12/09/23 12/09/23 12/09/23 18:00 18:15 18:30 Temperature Pulse Rate 58 L 60 59 L Respiratory 16 Rate Blood Pressure 103/41 106/38 99/47 O2 Sat by Pulse 95 98 95 Oximetry 12/09/23 12/09/23 12/09/23 18:45 19:00 19:15 Temperature Pulse Rate 56 L 64 62 Respiratory 17 Rate Blood Pressure 97/44 94/44 96/39 O2 Sat by Pulse 96 Oximetry 12/09/23 12/09/23 12/09/23 19:30 19:45 20:00 Temperature Pulse Rate 64 58 L 58 L Respiratory Rate Blood Pressure 86/42 91/38 95/54 O2 Sat by Pulse Oximetry 12/09/23 12/09/23 12/09/23 20:15 20:30 20:39 Temperature Pulse Rate 52 L 57 L 61 Respiratory 16 Rate Blood Pressure 110/41 107/44 110/45 O2 Sat by Pulse 95 Oximetry 12/09/23 12/09/23 12/09/23 20:45 21:00 21:15 Temperature Pulse Rate 64 66 64 Respiratory 17 Rate Blood Pressure 110/45 91/45 97/37 O2 Sat by Pulse 95 Oximetry 12/09/23 12/09/23 12/09/23 21:30 21:45 22:00 Temperature Pulse Rate 75 72 72 Respiratory Rate Blood Pressure 89/37 70/44 70/44 O2 Sat by Pulse Oximetry 12/09/23 22:15 Temperature Pulse Rate 80 Respiratory Rate Blood Pressure 78/46 O2 Sat by Pulse Oximetry Medical Decision Making - Medical Decision Making This is an 83 year old female who presents to the emergency department for an episode of hypotension. Was pt. sent in by a medical professional or institution? @ -No Did you speak to anyone other than the patient for history? @ -EMS provided the majority of the information. Did you review nursing and triage notes? @ -Yes, and I agree, it is accurate with regards to the patient's symptoms. Were old charts reviewed? @ -No Differential Diagnosis? @ -Differential Hypotension; Vasovagal episode, sepsis, dehydration, this is not meant to be an all-inclusive list. EKG interpreted by me (3pts min.)? @ -EKG interpreted by me demonstrating the following: Uncertain irregular rh ythm. Ventricular rate 58 BPM, QRS duration 133 ms, QTc 527 ms. X-rays interpreted by me (1pt min.)? @ -Chest x-ray obtained. My interpretation identifies a right basilar opacity. CT interpreted by me (1pt min.)? @ -Not obtained U/S interpreted by me (1pt. min.)? @ -Not obtained What testing was considered but not performed? (CT, X-rays, U/S, labs)? Why? @ -None What meds were considered but not given? Why? @ -None Did you discuss the management of the patient with other professionals? @ -Yes, Bella Oscar with [facility], who accepts the patient for admission. Did you reconcile home meds? @ -No Was smoking cessation discussed for >3mins.? @ -No Was critical care preformed (if so, how long)? @ -Yes, >25 minutes Were there social determinants of health that impacted care today? How? (Homelessness, low income, unemployed, alcoholism, drug addiction, transportation, low edu. Level, literacy, decrease access to med. care, group home, rehab)? @ -No Was there de-escalation of care discussed even if they declined? (Discuss DNR or withdrawal of care, Hospice)? @ -No What co-morbidities impacted this encounter? (DM, HTN, Smoking, COPD, CAD, Cancer, CVA, Hep., AIDS, mental health diagnosis, sleep apnea, morbid obesity)? @ -DM, CAD, HLD, HTN, renal disease Was patient admitted / discharged? @ -Admitted. Lab work obtained revealing leukocytosis and elevated lactic acid. Renal failure is stable when compared with prior and consistent with the patient's history of renal disease. Elevated troponin likely secondary to patient's illnesses and being on dialysis. Patient positive for COVID. Chest x-ray demonstrates right lower lobe airspace opacities concerning for pneumonia. Lactic acid repeated after a 1L bolus of IV fluids and increased from 2.4 to 3.0. BP was normal initially, but started to become soft again, and reached 91/59. She was subsequently given another liter of IV fluids and BP quickly corrected. Given the more localized airspace opacities, we did start her on the pneumonia protocol with ceftriaxone and azithromycin. Blood cultures obtained as well. Patient initially refusing admission despite discussion of risks associated with discharge. She said that she felt fine and did not understand why she needed to stay. She was alert and oriented, however she was very somnelent and had poor understanding of the situation and potential consequences of discharge, and there was concern about her capacity to make medical decisions at that time and we proceeded with admission, which she did not argue with. Patient admitted to medicine for COVID-19, pneumonia, and hypotension. S erial troponins ordered. Consult placed for pulmonology and nephrology. Undiagnosed new problem with uncertain prognosis? @ -None Drug Therapy requiring intensive monitoring for toxicity (Heparin, Nitro, Insulin, Cardizem)? @ -None Were any procedures done? @ -None Diagnosis/symptom? @ -Pneumonia, COVID-19, hypotension Acute, or Chronic, or Acute on Chronic? @ -Acute Uncomplicated (without systemic symptoms) or Complicated (systemic symptoms)? @ -Complicated Side effects of treatment? @ -None Exacerbation, Progression, or Severe Exacerbation] @ -Not applicable Poses a threat to life or bodily function? @ -Yes This case was discussed in detail with the attending ED physician, Dr. Bay. Presentation, findings, and treatment plan discussed in detail as well. - Lab Data Result diagrams: 12/10/23 10:32 12/10/23 06:11 Lab Results 12/09/23 12/09/23 12/09/23 Range/Units 06:11 10:29 10:29 WBC 18.1 H (3.8-10.6) k/uL RBC 3.30 L (3.80-5.40) m/uL Hgb 10.0 L (11.4-16.0) gm/dL Hct 31.9 L (34.0-46.0) % MCV 96.5 (80.0-100.0) fL MCH 30.2 (25.0-35.0) pg MCHC 31.3 (31.0-37.0) g/dL RDW 15.4 (11.5-15.5) % Plt Count 85 L (150-450) k/uL MPV 11.2 Neutrophils % 89 % Lymphocytes % 4 % Monocytes % 7 % Eosinophils % 0 % Basophils % 0 % Neutrophils # 16.1 H (1.3-7.7) k/uL Lymphocytes # 0.7 L (1.0-4.8) k/uL Monocytes # 1.2 H (0-1.0) k/uL Eosinophils # 0.0 (0-0.7) k/uL Basophils # 0.0 (0-0.2) k/uL Manual Slide Review Performed Hypochromasia Moderate Sodium 135 L (137-145) mmol/L Potassium 3.6 (3.5-5.1) mmol/L Chloride 99 (98-107) mmol/L Carbon Dioxide 35 H (22-30) mmol/L Anion Gap 1 mmol/L BUN 14 (7-17) mg/dL Creatinine 2.04 H (0.52-1.04) mg/dL Est GFR (CKD-EPI)AfAm 26 (>60 ml/min/1.73 sqM) Est GFR (CKD-EPI)NonAf 22 (>60 ml/min/1.73 sqM) Glucose 122 H (74-99) mg/dL Estimated Ave Glu mg/dL 114 mg/dL Hemoglobin A1c 5.6 (<=6.0) % Lactic Ac Sepsis Rflx Plasma Lactic Acid Fer (0.7-2.0) mmol/L Calcium 7.5 L (8.4-10.2) mg/dL Phosphorus 2.9 (2.5-4.5) mg/dL Magnesium 2.0 (1.6-2.3) mg/dL Total Bilirubin 0.8 (0.2-1.3) mg/dL AST 51 H (14-36) U/L ALT 28 (4-34) U/L Alkaline Phosphatase 252 H (38-126) U/L Troponin I (0.000-0.034) ng/mL C-Reactive Protein (<1.0) mg/dL Total Protein 4.6 L (6.3-8.2) g/dL Albumin 1.9 L (3.5-5.0) g/dL Procalcitonin (0.02-0.09) ng/mL Influenza Type A (PCR) (Not Detectd) Influenza Type B (PCR) (Not Detectd) RSV (PCR) (Not Detectd) SARS-CoV-2 (PCR) (Not Detectd) 12/09/23 12/09/23 12/09/23 Range/Units 10:29 10:29 10:29 WBC (3.8-10.6) k/uL RBC (3.80-5.40) m/uL Hgb (11.4-16.0) gm/dL Hct (34.0-46.0) % MCV (80.0-100.0) fL MCH (25.0-35.0) pg MCHC (31.0-37.0) g/dL RDW (11.5-15.5) % Plt Count (150-450) k/uL MPV Neutrophils % % Lymphocytes % % Monocytes % % Eosinophils % % Basophils % % Neutrophils # (1.3-7.7) k/uL Lymphocytes # (1.0-4.8) k/uL Monocytes # (0-1.0) k/uL Eosinophils # (0-0.7) k/uL Basophils # (0-0.2) k/uL Manual Slide Review Hypochromasia Sodium (137-145) mmol/L Potassium (3.5-5.1) mmol/L Chloride (98-107) mmol/L Carbon Dioxide (22-30) mmol/L Anion Gap mmol/L BUN (7-17) mg/dL Creatinine (0.52-1.04) mg/dL Est GFR (CKD-EPI)AfAm (>60 ml/min/1.73 sqM) Est GFR (CKD-EPI)NonAf (>60 ml/min/1.73 sqM) Glucose (74-99) mg/dL Estimated Ave Glu mg/dL mg/dL Hemoglobin A1c (<=6.0) % Lactic Ac Sepsis Rflx Plasma Lactic Acid Fer 2.4 H* (0.7-2.0) mmol/L Calcium (8.4-10.2) mg/dL Phosphorus (2.5-4.5) mg/dL Magnesium (1.6-2.3) mg/dL Total Bilirubin (0.2-1.3) mg/dL AST (14-36) U/L ALT (4-34) U/L Alkaline Phosphatase (38-126) U/L Troponin I (0.000-0.034) ng/mL C-Reactive Protein 8.2 H (<1.0) mg/dL Total Protein (6.3-8.2) g/dL Albumin (3.5-5.0) g/dL Procalcitonin 0.78 H (0.02-0.09) ng/mL Influenza Type A (PCR) (Not Detectd) Influenza Type B (PCR) (Not Detectd) RSV (PCR) (Not Detectd) SARS-CoV-2 (PCR) (Not Detectd) 12/09/23 12/09/23 12/09/23 Range/Units 11:01 11:32 13:38 WBC (3.8-10.6) k/uL RBC (3.80-5.40) m/uL Hgb (11.4-16.0) gm/dL Hct (34.0-46.0) % MCV (80.0-100.0) fL MCH (25.0-35.0) pg MCHC (31.0-37.0) g/dL RDW (11.5-15.5) % Plt Count (150-450) k/uL MPV Neutrophils % % Lymphocytes % % Monocytes % % Eosinophils % % Basophils % % Neutrophils # (1.3-7.7) k/uL Lymphocytes # (1.0-4.8) k/uL Monocytes # (0-1.0) k/uL Eosinophils # (0-0.7) k/uL Basophils # (0-0.2) k/uL Manual Slide Review Hypochromasia Sodium (137-145) mmol/L Potassium (3.5-5.1) mmol/L Chloride (98-107) mmol/L Carbon Dioxide (22-30) mmol/L Anion Gap mmol/L BUN (7-17) mg/dL Creatinine (0.52-1.04) mg/dL Est GFR (CKD-EPI)AfAm (>60 ml/min/1.73 sqM) Est GFR (CKD-EPI)NonAf (>60 ml/min/1.73 sqM) Glucose (74-99) mg/dL Estimated Ave Glu mg/dL mg/dL Hemoglobin A1c (<=6.0) % Lactic Ac Sepsis Rflx Y Plasma Lactic Acid Fer 3.0 H* (0.7-2.0) mmol/L Calcium (8.4-10.2) mg/dL Phosphorus (2.5-4.5) mg/dL Magnesium (1.6-2.3) mg/dL Total Bilirubin (0.2-1.3) mg/dL AST (14-36) U/L ALT (4-34) U/L Alkaline Phosphatase (38-126) U/L Troponin I (0.000-0.034) ng/mL C-Reactive Protein (<1.0) mg/dL Total Protein (6.3-8.2) g/dL Albumin (3.5-5.0) g/dL Procalcitonin (0.02-0.09) ng/mL Influenza Type A (PCR) Not Detected (Not Detectd) Influenza Type B (PCR) Not Detected (Not Detectd) RSV (PCR) Not Detected (Not Detectd) SARS-CoV-2 (PCR) Detected A (Not Detectd) 12/09/23 12/09/23 12/09/23 Range/Units 14:14 15:26 16:22 WBC (3.8-10.6) k/uL RBC (3.80-5.40) m/uL Hgb (11.4-16.0) gm/dL Hct (34.0-46.0) % MCV (80.0-100.0) fL MCH (25.0-35.0) pg MCHC (31.0-37.0) g/dL RDW (11.5-15.5) % Plt Count (150-450) k/uL MPV Neutrophils % % Lymphocytes % % Monocytes % % Eosinophils % % Basophils % % Neutrophils # (1.3-7.7) k/uL Lymphocytes # (1.0-4.8) k/uL Monocytes # (0-1.0) k/uL Eosinophils # (0-0.7) k/uL Basophils # (0-0.2) k/uL Manual Slide Review Hypochromasia Sodium (137-145) mmol/L Potassium (3.5-5.1) mmol/L Chloride (98-107) mmol/L Carbon Dioxide (22-30) mmol/L Anion Gap mmol/L BUN (7-17) mg/dL Creatinine (0.52-1.04) mg/dL Est GFR (CKD-EPI)AfAm (>60 ml/min/1.73 sqM) Est GFR (CKD-EPI)NonAf (>60 ml/min/1.73 sqM) Glucose (74-99) mg/dL Estimated Ave Glu mg/dL mg/dL Hemoglobin A1c (<=6.0) % Lactic Ac Sepsis Rflx Y Plasma Lactic Acid Fer 2.9 H* (0.7-2.0) mmol/L Calcium (8.4-10.2) mg/dL Phosphorus (2.5-4.5) mg/dL Magnesium (1.6-2.3) mg/dL Total Bilirubin (0.2-1.3) mg/dL AST (14-36) U/L ALT (4-34) U/L Alkaline Phosphatase (38-126) U/L Troponin I 0.042 H* (0.000-0.034) ng/mL C-Reactive Protein (<1.0) mg/dL Total Protein (6.3-8.2) g/dL Albumin (3.5-5.0) g/dL Procalcitonin (0.02-0.09) ng/mL Influenza Type A (PCR) (Not Detectd) Influenza Type B (PCR) (Not Detectd) RSV (PCR) (Not Detectd) SARS-CoV-2 (PCR) (Not Detectd) 12/09/23 Range/Units 17:02 WBC (3.8-10.6) k/uL RBC (3.80-5.40) m/uL Hgb (11.4-16.0) gm/dL Hct (34.0-46.0) % MCV (80.0-100.0) fL MCH (25.0-35.0) pg MCHC (31.0-37.0) g/dL RDW (11.5-15.5) % Plt Count (150-450) k/uL MPV Neutrophils % % Lymphocytes % % Monocytes % % Eosinophils % % Basophils % % Neutrophils # (1.3-7.7) k/uL Lymphocytes # (1.0-4.8) k/uL Monocytes # (0-1.0) k/uL Eosinophils # (0-0.7) k/uL Basophils # (0-0.2) k/uL Manual Slide Review Hypochromasia Sodium (137-145) mmol/L Potassium (3.5-5.1) mmol/L Chloride (98-107) mmol/L Carbon Dioxide (22-30) mmol/L Anion Gap mmol/L BUN (7-17) mg/dL Creatinine (0.52-1.04) mg/dL Est GFR (CKD-EPI)AfAm (>60 ml/min/1.73 sqM) Est GFR (CKD-EPI)NonAf (>60 ml/min/1.73 sqM) Glucose (74-99) mg/dL Estimated Ave Glu mg/dL mg/dL Hemoglobin A1c (<=6.0) % Lactic Ac Sepsis Rflx Y Plasma Lactic Acid Fer (0.7-2.0) mmol/L Calcium (8.4-10.2) mg/dL Phosphorus (2.5-4.5) mg/dL Magnesium (1.6-2.3) mg/dL Total Bilirubin (0.2-1.3) mg/dL AST (14-36) U/L ALT (4-34) U/L Alkaline Phosphatase (38-126) U/L Troponin I (0.000-0.034) ng/mL C-Reactive Protein (<1.0) mg/dL Total Protein (6.3-8.2) g/dL Albumin (3.5-5.0) g/dL Procalcitonin (0.02-0.09) ng/mL Influenza Type A (PCR) (Not Detectd) Influenza Type B (PCR) (Not Detectd) RSV (PCR) (Not Detectd) SARS-CoV-2 (PCR) (Not Detectd) - Radiology Data Radiology results: report reviewed, image reviewed Disposition Clinical Impression: Pneumonia, COVID-19, Hypotension Disposition: ADMITTED IP TO THIS [facility] Condition: Serious Time of Disposition: 13:34
[2023-12-09 10:55] LABS: ALT 28 U/L (4-34); AST 51 U/L (14-36); African American GFR (CKD) 26 (>60 ml/min/1.73 sqM); Albumin 1.9 g/dL (3.5-5.0); Alkaline Phosphatase 252 U/L (38-126); Anion Gap 1 mmol/L; Blood Urea Nitrogen 14 mg/dL (7-17); Calcium 7.5 mg/dL (8.4-10.2); Carbon Dioxide 35 mmol/L (22-30); Chloride 99 mmol/L (98-107); Glucose 122 mg/dL (74-99); Non-African American GFR(CKD) 22 (>60 ml/min/1.73 sqM); Phosphorus 2.9 mg/dL (2.5-4.5); Potassium 3.6 mmol/L (3.5-5.1); Sodium 135 mmol/L (137-145); Total Bilirubin 0.8 mg/dL (0.2-1.3); Total Protein 4.6 g/dL (6.3-8.2)
[2023-12-09 11:03] LABS: Basophils % (A) 0 %; Eosinophils % (A) 0 %; HCT 31.9 % (34.0-46.0); Hypochromasia Moderate; Lymphocytes # (A) 0.7 k/uL (1.0-4.8); Lymphocytes % (A) 4 %; MCH 30.2 pg (25.0-35.0); MCHC 31.3 g/dL (31.0-37.0); MCV 96.5 fL (80.0-100.0); Mean Platelet Volume 11.2; Monocytes # (A) 1.2 k/uL (0-1.0); Monocytes % (A) 7 %; Neutrophils # (A) 16.1 k/uL (1.3-7.7); Neutrophils % (A) 89 %; RDW 15.4 % (11.5-15.5); WBC 18.1 k/uL (3.8-10.6)
[2023-12-09 12:06] LABS: Platelet Count 85 k/uL (150-450)
--- NOTE | 2023-12-09 12:20 | XR ---
EXAMINATION TYPE: XR chest 2V DATE OF EXAM: 12/09/2023 11:27 AM CLINICAL INDICATION:Female, 83 years old with history of weakness; COMPARISON: Chest radiographs from 12/09/2018. TECHNIQUE: XR chest 2V Frontal and lateral views of the chest. FINDINGS: Lungs/Pleura: Right lower lobe airspace opacities. There is no evidence of pleural effusion, focal co nsolidation, or pneumothorax. Pulmonary vascularity: Unremarkable . Heart/mediastinum: Cardiomediastinal silhouette is unremarkable. Post aortic valve repair changes. Musculoskeletal: No acute osseous pathology. Midline sternotomy wires are noted. New deformity left p roximal humerus. IMPRESSION: 1. No acute cardiopulmonary disease/process. 2. Right basilar airspace opacities correlate for pneumonia.
[2023-12-09] MEDS: SODIUM CHLORIDE 0.9% 500 ML 500 ML IV STA ×3 (12:38→17:13)
[2023-12-09] MEDS ORDERED: PNEUMONIA PROTOCOL UTILIZED 1 EACH MISC PO PRN (14:44)
[2023-12-09] MEDS: SODIUM CHLORIDE 0.9% 1,000 ML IV STA ×2 (15:05→17:13)
[2023-12-09] MEDS: AZITHROMYCIN 500 MG in SODIUM CHLORIDE 0.9% 250 ML IVPB STA (15:54)
[2023-12-09] MEDS ORDERED: HYDROcodone/APAP 5-325MG 1 EACH TAB PO PRN (16:46)
[2023-12-09] MEDS ORDERED: ACETAMINOPHEN TAB 325 MG TAB PO PRN (16:46)
[2023-12-09] MEDS ORDERED: NALOXONE 0.4 MG/ML 1 ML VIAL IV PRN (16:46)
[2023-12-09] MEDS ORDERED: ONDANSETRON 4 MG/2 ML VIAL IVP PRN (16:46)
[2023-12-09] MEDS: MIDODRINE 5 MG TAB PO STA (19:43)
[2023-12-09] MEDS ORDERED: APIXABAN 2.5 MG TABLET PO SCH (21:00)
[2023-12-09 22:33] LABS: Glucose,Whole Blood 94 mg/dL (70-110)
[2023-12-09 23:20] LABS: Basophils % (A) 0 %; Eosinophils # (A) 0.1 k/uL (0-0.7); Eosinophils % (A) 1 %; HCT 23.4 % (34.0-46.0); Hypochromasia Marked; Lymphocytes # (A) 1.8 k/uL (1.0-4.8); Lymphocytes % (A) 15 %; MCH 30.8 pg (25.0-35.0); MCHC 29.1 g/dL (31.0-37.0); Macrocytosis Moderate; Monocytes # (A) 0.7 k/uL (0-1.0); Monocytes % (A) 6 %; Neutrophils # (A) 9.2 k/uL (1.3-7.7); Neutrophils % (A) 77 %; RBC 2.21 m/uL (3.80-5.40); RDW 15.8 % (11.5-15.5)
[2023-12-09 23:28] LABS: HGB 6.8 gm/dL (11.4-16.0); Platelet Count 73 k/uL (150-450)
[2023-12-09 23:29] LABS: MCV 105.8 fL (80.0-100.0)
[2023-12-10] MEDS: NOREPINEPHRINE 4 MG in SODIUM CHLORIDE 0.9% 250 ML IV SCH (00:22)
[2023-12-10] MEDS: VASOPRESSIN 60 UNIT in SODIUM CHLORIDE 0.9% 150 ML IV SCH (00:24)
[2023-12-10 00:25] LABS: Allen Test Performed? Yes
[2023-12-10 00:32] LABS: ABG Base Excess -15.5 mmol/L; ABG HCO3 14 mmol/L (21-25); ABG PCO2 41 mmHg (35-45); ABG PH 7.15 (7.35-7.45); ABG PO2 208 mmHg (83-108); ABG TCO2 16 mmol/L (19-24)
[2023-12-10] MEDS ORDERED: DESMOPRESSIN ACETATE 4 MCG/ML VIAL (MDV) IV ONE (01:07)
[2023-12-10] MEDS: DESMOPRESSIN ACETATE 27 MCG in SODIUM CHLORIDE 0.9% 50 ML IVPB ONE (01:23)
[2023-12-10] MEDS: SODIUM BICARB 8.4% 50 ML SYR (1 MEQ/ML) IV STA ×2 (01:39→01:40)
--- NOTE | 2023-12-10 01:44 | XR ---
EXAM: XR Chest, 1 View CLINICAL HISTORY: ITS.REASON XR Reason: tube placement + line placement TECHNIQUE: Frontal view of the chest. COMPARISON: 12/09/2023 FINDINGS: Lungs: Unremarkable. No consolidation. Pleural space: Unremarkable. No pneumothorax. Heart: Unremarkable. No cardiomegaly. Mediastinum: Unremarkable. Normal mediastinal contour. Bones/joints: Unremarkable. No acute fracture. Tubes, lines and devices: Endotracheal tube with its tip above the nadege. Postoperative changes median sternotomy. IMPRESSION: No acute findings in the chest.
[2023-12-10 02:00] LABS: ALT 141 U/L (4-34); AST 487 U/L (14-36); African American GFR (CKD) 23 (>60 ml/min/1.73 sqM); Albumin <1.0 g/dL (3.5-5.0); Alkaline Phosphatase 112 U/L (38-126); Anion Gap 8 mmol/L; Blood Urea Nitrogen 15 mg/dL (7-17); Carbon Dioxide 24 mmol/L (22-30); Chloride 106 mmol/L (98-107); Non-African American GFR(CKD) 20 (>60 ml/min/1.73 sqM); Potassium 5.3 mmol/L (3.5-5.1); Sodium 138 mmol/L (137-145); Total Bilirubin 0.3 mg/dL (0.2-1.3); Total Protein 2.2 g/dL (6.3-8.2)
[2023-12-10 02:16] LABS: Calcium 6.2 mg/dL (8.4-10.2); Glucose 26 mg/dL (74-99)
[2023-12-10] MEDS ORDERED: DEXTROSE 50% SYRINGE 50 ML IVP PRN ×3 (02:27→02:34)
[2023-12-10] MEDS: DEXTROSE 50% SYRINGE 50 ML IVP PRN (02:35)
[2023-12-10] MEDS: DEXTROSE 5% IN WATER 1,000 ML with SODIUM BICARB (1 MEQ/ML) 150 ML IV SCH (02:37)
[2023-12-10] MEDS: CALCIUM GLUCONATE IN NACL 1 GM in SALINE 1 100ML.BAG IVPB ONE (02:44)
[2023-12-10 03:04] LABS: Glucose,Whole Blood 180 mg/dL (70-110)
[2023-12-10] MEDS ORDERED: Kcentra PER PHARMACY 1 EACH MISC MISCELLANE PRN (03:44)
[2023-12-10] MEDS: NOREPINEPHRINE 32 MG in SODIUM CHLORIDE 0.9% 250 ML IV SCH (04:14)
[2023-12-10] MEDS: STERILE IV ONE (04:15)
[2023-12-10] MEDS ORDERED: HUMAN PROTHROMBIN COMPLX 500 UNIT/16 ML VIAL IV ONE (04:15)
[2023-12-10] MEDS: HUMAN PROTHROMBIN COMPLX IV ONE (04:15)
[2023-12-10] MEDS: WATER FOR INJECTION IV ONE (04:15)
[2023-12-10 04:22] LABS: INR 2.9 (<1.2); Prothrombin Time 28.2 sec (10.0-12.5)
[2023-12-10 04:59] LABS: ABG Base Excess -15.7 mmol/L; ABG HCO3 12 mmol/L (21-25); ABG Oxygen Saturation 95.4 % (94-97); ABG PCO2 26 mmHg (35-45); ABG PH 7.25 (7.35-7.45); ABG PO2 78 mmHg (83-108); ABG TCO2 12 mmol/L (19-24)
[2023-12-10 05:25] LABS: Allen Test Performed? no
[2023-12-10 06:48] LABS: HCT 36.2 % (34.0-46.0); Hypochromasia Marked; MCH 31.8 pg (25.0-35.0); MCHC 32.3 g/dL (31.0-37.0); Macrocytosis Slight; Mean Platelet Volume 12.8; Poikilocytosis Moderate; RBC 3.67 m/uL (3.80-5.40); RDW 15.9 % (11.5-15.5)
--- NOTE | 2023-12-10 06:50 | XR ---
EXAMINATION TYPE: XR chest 1V DATE OF EXAM: 12/10/2023 CLINICAL HISTORY: Difficulty breathing progress study. TECHNIQUE: Single AP portable semiupright view of the chest is obtained. COMPARISON: Chest x-ray from earlier today an older studies. FINDINGS: Stable endotracheal tube. Overlying sternal wires along with stent graft in the aortic root are redemonstrated. There is linear lucency could reflect surgical change or catheter fragment projecting over the left heart redemonstr ated. Correlate clinically. Surgical changes of cardiac valve redemonstrated. Persistent right basila r increased opacity. 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 Left lung remains c lear. Cardiac silhouette size stable within normal limits. IMPRESSION: Stable right basilar opacity. Other findings as noted above. No significant change from m ost recent study.
[2023-12-10 06:57] LABS: HGB 11.7 gm/dL (11.4-16.0); MCV 98.6 fL (80.0-100.0)
[2023-12-10 06:59] LABS: Platelet Count 51 k/uL (150-450)
[2023-12-10 07:02] LABS: African American GFR (CKD) 23 (>60 ml/min/1.73 sqM); Anion Gap 15 mmol/L; Blood Urea Nitrogen 14 mg/dL (7-17); Carbon Dioxide 14 mmol/L (22-30); Chloride 109 mmol/L (98-107); Glucose 101 mg/dL (74-99); Magnesium 1.9 mg/dL (1.6-2.3); Non-African American GFR(CKD) 20 (>60 ml/min/1.73 sqM); Potassium 3.9 mmol/L (3.5-5.1); Sodium 138 mmol/L (137-145)
[2023-12-10 07:42] LABS: Calcium 6.3 mg/dL (8.4-10.2)
[2023-12-10] MEDS ORDERED: Magnesium Replacement Protocol 1 EACH MISC MISCELLANE PRN (08:02)
[2023-12-10] MEDS: CALCIUM GLUCONATE IN NACL 2 GM in SALINE 1 100ML.BAG IVPB ONE (08:17)
[2023-12-10] MEDS: MAGNESIUM SULFATE-D5W PMX 1 GM in DEXTROSE/WATER 1 100ML.BAG IVPB ONE (08:17)
[2023-12-10 08:22] LABS: Band Neutrophils % 5 %; Lymphocytes # (M) 0.41 k/uL (1.0-4.8); Monocytes # (M) 0.21 k/uL (0-1.0); Neutrophils % (M) 93 %; Nucleated Red Blood Cells 1 /100 WBC (0-0); Total Cells Counted 200; WBC 20.7 k/uL (3.8-10.6)
[2023-12-10 08:25] LABS: Crenated RBC Present
--- NOTE | 2023-12-10 08:41 | ED ---
Medical Decision Making - Medical Decision Making I was contacted by ICU to place central line for patient that suffered cardiac arrest and they obtained ROSC while in the ICU. Left femoral central line placed by myself. Successful placement. See procedure note for further details. - Lab Data Result diagrams: 12/10/23 06:11 12/10/23 06:11 Lab Results 12/09/23 12/09/23 12/09/23 Range/Units 10:29 10:29 10:29 WBC 18.1 H (3.8-10.6) k/uL RBC 3.30 L (3.80-5.40) m/uL Hgb 10.0 L (11.4-16.0) gm/dL Hct 31.9 L (34.0-46.0) % MCV 96.5 (80.0-100.0) fL MCH 30.2 (25.0-35.0) pg MCHC 31.3 (31.0-37.0) g/dL RDW 15.4 (11.5-15.5) % Plt Count 85 L (150-450) k/uL MPV 11.2 Neutrophils % 89 % Lymphocytes % 4 % Monocytes % 7 % Eosinophils % 0 % Basophils % 0 % Neutrophils # 16.1 H (1.3-7.7) k/uL Lymphocytes # 0.7 L (1.0-4.8) k/uL Monocytes # 1.2 H (0-1.0) k/uL Eosinophils # 0.0 (0-0.7) k/uL Basophils # 0.0 (0-0.2) k/uL Manual Slide Review Performed Hypochromasia Moderate Sodium 135 L (137-145) mmol/L Potassium 3.6 (3.5-5.1) mmol/L Chloride 99 (98-107) mmol/L Carbon Dioxide 35 H (22-30) mmol/L Anion Gap 1 mmol/L BUN 14 (7-17) mg/dL Creatinine 2.04 H (0.52-1.04) mg/dL Est GFR (CKD-EPI)AfAm 26 (>60 ml/min/1.73 sqM) Est GFR (CKD-EPI)NonAf 22 (>60 ml/min/1.73 sqM) Glucose 122 H (74-99) mg/dL Lactic Ac Sepsis Rflx Plasma Lactic Acid Fer 2.4 H* (0.7-2.0) mmol/L Calcium 7.5 L (8.4-10.2) mg/dL Phosphorus 2.9 (2.5-4.5) mg/dL Magnesium 2.0 (1.6-2.3) mg/dL Total Bilirubin 0.8 (0.2-1.3) mg/dL AST 51 H (14-36) U/L ALT 28 (4-34) U/L Alkaline Phosphatase 252 H (38-126) U/L Troponin I (0.000-0.034) ng/mL C-Reactive Protein (<1.0) mg/dL Total Protein 4.6 L (6.3-8.2) g/dL Albumin 1.9 L (3.5-5.0) g/dL Procalcitonin (0.02-0.09) ng/mL Influenza Type A (PCR) (Not Detectd) Influenza Type B (PCR) (Not Detectd) RSV (PCR) (Not Detectd) SARS-CoV-2 (PCR) (Not Detectd) 12/09/23 12/09/23 12/09/23 Range/Units 10:29 10:29 11:01 WBC (3.8-10.6) k/uL RBC (3.80-5.40) m/uL Hgb (11.4-16.0) gm/dL Hct (34.0-46.0) % MCV (80.0-100.0) fL MCH (25.0-35.0) pg MCHC (31.0-37.0) g/dL RDW (11.5-15.5) % Plt Count (150-450) k/uL MPV Neutrophils % % Lymphocytes % % Monocytes % % Eosinophils % % Basophils % % Neutrophils # (1.3-7.7) k/uL Lymphocytes # (1.0-4.8) k/uL Monocytes # (0-1.0) k/uL Eosinophils # (0-0.7) k/uL Basophils # (0-0.2) k/uL Manual Slide Review Hypochromasia Sodium (137-145) mmol/L Potassium (3.5-5.1) mmol/L Chloride (98-107) mmol/L Carbon Dioxide (22-30) mmol/L Anion Gap mmol/L BUN (7-17) mg/dL Creatinine (0.52-1.04) mg/dL Est GFR (CKD-EPI)AfAm (>60 ml/min/1.73 sqM) Est GFR (CKD-EPI)NonAf (>60 ml/min/1.73 sqM) Glucose (74-99) mg/dL Lactic Ac Sepsis Rflx Y Plasma Lactic Acid Fer (0.7-2.0) mmol/L Calcium (8.4-10.2) mg/dL Phosphorus (2.5-4.5) mg/dL Magnesium (1.6-2.3) mg/dL Total Bilirubin (0.2-1.3) mg/dL AST (14-36) U/L ALT (4-34) U/L Alkaline Phosphatase (38-126) U/L Troponin I (0.000-0.034) ng/mL C-Reactive Protein 8.2 H (<1.0) mg/dL Total Protein (6.3-8.2) g/dL Albumin (3.5-5.0) g/dL Procalcitonin 0.78 H (0.02-0.09) ng/mL Influenza Type A (PCR) (Not Detectd) Influenza Type B (PCR) (Not Detectd) RSV (PCR) (Not Detectd) SARS-CoV-2 (PCR) (Not Detectd) 12/09/23 12/09/23 12/09/23 Range/Units 11:32 13:38 14:14 WBC (3.8-10.6) k/uL RBC (3.80-5.40) m/uL Hgb (11.4-16.0) gm/dL Hct (34.0-46.0) % MCV (80.0-100.0) fL MCH (25.0-35.0) pg MCHC (31.0-37.0) g/dL RDW (11.5-15.5) % Plt Count (150-450) k/uL MPV Neutrophils % % Lymphocytes % % Monocytes % % Eosinophils % % Basophils % % Neutrophils # (1.3-7.7) k/uL Lymphocytes # (1.0-4.8) k/uL Monocytes # (0-1.0) k/uL Eosinophils # (0-0.7) k/uL Basophils # (0-0.2) k/uL Manual Slide Review Hypochromasia Sodium (137-145) mmol/L Potassium (3.5-5.1) mmol/L Chloride (98-107) mmol/L Carbon Dioxide (22-30) mmol/L Anion Gap mmol/L BUN (7-17) mg/dL Creatinine (0.52-1.04) mg/dL Est GFR (CKD-EPI)AfAm (>60 ml/min/1.73 sqM) Est GFR (CKD-EPI)NonAf (>60 ml/min/1.73 sqM) Glucose (74-99) mg/dL Lactic Ac Sepsis Rflx Y Plasma Lactic Acid Fer 3.0 H* (0.7-2.0) mmol/L Calcium (8.4-10.2) mg/dL Phosphorus (2.5-4.5) mg/dL Magnesium (1.6-2.3) mg/dL Total Bilirubin (0.2-1.3) mg/dL AST (14-36) U/L ALT (4-34) U/L Alkaline Phosphatase (38-126) U/L Troponin I (0.000-0.034) ng/mL C-Reactive Protein (<1.0) mg/dL Total Protein (6.3-8.2) g/dL Albumin (3.5-5.0) g/dL Procalcitonin (0.02-0.09) ng/mL Influenza Type A (PCR) Not Detected (Not Detectd) Influenza Type B (PCR) Not Detected (Not Detectd) RSV (PCR) Not Detected (Not Detectd) SARS-CoV-2 (PCR) Detected A (Not Detectd) 12/09/23 12/09/23 12/09/23 Range/Units 15:26 16:22 17:02 WBC (3.8-10.6) k/uL RBC (3.80-5.40) m/uL Hgb (11.4-16.0) gm/dL Hct (34.0-46.0) % MCV (80.0-100.0) fL MCH (25.0-35.0) pg MCHC (31.0-37.0) g/dL RDW (11.5-15.5) % Plt Count (150-450) k/uL MPV Neutrophils % % Lymphocytes % % Monocytes % % Eosinophils % % Basophils % % Neutrophils # (1.3-7.7) k/uL Lymphocytes # (1.0-4.8) k/uL Monocytes # (0-1.0) k/uL Eosinophils # (0-0.7) k/uL Basophils # (0-0.2) k/uL Manual Slide Review Hypochromasia Sodium (137-145) mmol/L Potassium (3.5-5.1) mmol/L Chloride (98-107) mmol/L Carbon Dioxide (22-30) mmol/L Anion Gap mmol/L BUN (7-17) mg/dL Creatinine (0.52-1.04) mg/dL Est GFR (CKD-EPI)AfAm (>60 ml/min/1.73 sqM) Est GFR (CKD-EPI)NonAf (>60 ml/min/1.73 sqM) Glucose (74-99) mg/dL Lactic Ac Sepsis Rflx Y Plasma Lactic Acid Fer 2.9 H* (0.7-2.0) mmol/L Calcium (8.4-10.2) mg/dL Phosphorus (2.5-4.5) mg/dL Magnesium (1.6-2.3) mg/dL Total Bilirubin (0.2-1.3) mg/dL AST (14-36) U/L ALT (4-34) U/L Alkaline Phosphatase (38-126) U/L Troponin I 0.042 H* (0.000-0.034) ng/mL C-Reactive Protein (<1.0) mg/dL Total Protein (6.3-8.2) g/dL Albumin (3.5-5.0) g/dL Procalcitonin (0.02-0.09) ng/mL Influenza Type A (PCR) (Not Detectd) Influenza Type B (PCR) (Not Detectd) RSV (PCR) (Not Detectd) SARS-CoV-2 (PCR) (Not Detectd) Disposition Clinical Impression: Pneumonia, COVID-19, Hypotension, Shock Disposition: ADMITTED IP TO THIS HOSP Condition: Serious Procedures - Central Line Placement Left Femoral Consent Obtained: emergent situation Patient Placed on Monitor/Pulse Ox: Yes Prep: mask, gown, gloves Central Line Prep: Chlorhexidine scrub, sterile drapes applied Local Anesthesia Used: Lidocaine 1% Amount of Anesthesia Used (mls): 3 Ultrasound Used for Placement: Yes Central Line Lumen Inserted: triple Central Line Position: good blood return, all ports aspirated, flushed, capped, sutured in place with nylon Dressing Applied: Tegaderm Patient Tolerated Procedure: well Complications: none
[2023-12-10 10:32] VITALS: BP 115/61; PULSE 74; RESP 27
[2023-12-10 10:57] LABS: Basophils % (A) 0 %; Eosinophils % (A) 0 %; HCT 30.6 % (34.0-46.0); HGB 10.1 gm/dL (11.4-16.0); Hypochromasia Marked; Lymphocytes # (A) 0.4 k/uL (1.0-4.8); Lymphocytes % (A) 2 %; MCH 32.4 pg (25.0-35.0); MCV 98.2 fL (80.0-100.0); Macrocytosis Slight; Mean Platelet Volume 10.9; Monocytes # (A) 1.7 k/uL (0-1.0); Monocytes % (A) 8 %; Neutrophils # (A) 19.1 k/uL (1.3-7.7); Neutrophils % (A) 90 %; Poikilocytosis Moderate; RBC 3.12 m/uL (3.80-5.40); RDW 15.8 % (11.5-15.5); WBC 21.4 k/uL (3.8-10.6)
[2023-12-10 10:59] LABS: Glucose,Whole Blood 25 mg/dL (70-110)
[2023-12-10 11:01] LABS: Platelet Count 88 k/uL (150-450)
[2023-12-10 11:37] LABS: Glucose,Whole Blood 93 mg/dL (70-110)
[2023-12-10] MEDS ORDERED: AZITHROMYCIN 500 MG TAB PO SCH (12:00)
--- NOTE | 2023-12-10 12:22 | P.CNPUL ---
History of Present Illness Consult date: 12/10/23 Requesting physician: Alex Zavala Reason for consult: other (Hyportension, respiratory failure, GI bleeding.) Chief complaint: Low blood pressure after dialysis History of present illness: This is an 83-year-old female with history of end-stage renal disease, on hemodialysis, patient underwent her normal hemodialysis yesterday in [place], and her blood pressure dropped down to 70/30. Then the pressure normalized, and went back low again. Patient was brought into the ER, and blood pressure was low, later the blood pressure normalized in the ER, patient was supposed to be admitted to medical floor, however the Ateam was called to see the patient in the ER because of low blood pressures running low again, and I was notified about this patient from the a TEAM while in the ER, and I recommended transfer the patient to the ICU instead of going to regular medical floor for shortly after she arrived to the ICU, patient started having intermittent episodes of maroon-colored stools, and she was developing worsening hypotension requiring blood products. Received a total of 2 units of packed RBCs, and 1 unit of fresh frozen plasma, 1 unit of platelets patient developed worsening metabolic acidosis and acute respiratory failure, required intubation and mechanical ventilation. Postintubation, her ABG showed a pO2 of 208 pCO2 41 pH of 7.15, patient received more bicarb and she was placed on a bicarb drip. At 1 AM, patient went into pulseless electrical activity, she had a downtime of about 10 minutes, received 3 epinephrines, 2 A of bicarb, and blood pressure was noted to be low about 81/27 hence the patient was placed on pressors/Levophed and vasopressin. Patient had few episodes of maroon-colored stools, and she was noted to have a drop in her hemoglobin, no GI coverage available at our institution this weekend, general surgery was consulted who recommended transfer of the patient to another tertiary care center. Admitting physician was notified, and initiated transfer to [facility]. This morning patient is on mechanical ventilation with assist-control rate of 10 tidal volume 300 FiO2 40% and PEEP of 5. ABG earlier this morning on 40% showed a pO2 of 78 pCO2 of 26 pH of 7.25. Patient is now on bicarb drip at 75 cc/h, norepinephrine at 0.4 mcg/kg/min, she is also on vasopressin at 0.04 unit, and propofol 20 mcg/kg/min during her workup in the ER, patient tested positive for COVID-19 infection, she is also empirically on Rocephin and Zithromax. I evaluated the patient this morning, and apparently EMS is on the way to burr picker the patient to transfer to [facility] patient already had a central line established by the ER physician early this morning, she is hemodynamically stable enough for transfer, hence we will proceed with cleared the patient for transfer to [facility], family at bedside, very well aware of the poor prognostic picture and the seriousness of her condition Review of Systems ROS unobtainable: due to endotracheal tube Past Medical History Past Medical History: Coronary Artery Disease (CAD), Diabetes Mellitus, GERD/Reflux, Hearing Disorder / Deafness, Hyperlipidemia, Hypertension, Osteoarthritis (OA), Pulmonary Embolus (PE), Renal Disease Additional Past Medical History / Comment(s): hemodialysis [place]-WE-FR., Hard of hearing., Hx PE many years ago., hx tia (affected right eye ), states poor vision- does not have glasses , anemia, frequent diarrhea. History of Any Multi-Drug Resistant Organisms: None Reported Past Surgical History: Bariatric Surgery Additional Past Surgical History / Comment(s): Aortic valve replacement X3. LEFT CAROTID ENDARTECTOMY WITH STENT. gastric bypass, fistula rt arm for dialysis. , left subclavian stent. Past Anesthesia/Blood Transfusion Reactions: No Reported Reaction Past Psychological History: Depression Smoking Status: Current every day smoker, Heavy tobacco smoker Past Alcohol Use History: None Reported Past Drug Use History: None Reported - Past Family History Mother Family Medical History: Coronary Artery Disease (CAD) Father Family Medical History: Coronary Artery Disease (CAD) Additional Family Medical History / Comment(s): FATHER PASSED AT AGE 49. Medications and Allergies Home Medications Medication Instructions Recorded Confirmed Type Atorvastatin [Lipitor] 40 mg PO HS 12/03/18 10/12/22 History Gabapentin [Neurontin] 300 mg PO HS 12/03/18 08/01/23 History Omeprazole [PriLOSEC] 20 mg PO BID 12/03/18 08/01/23 History Isosorbide Mononitrate ER [Imdur] 30 mg PO DAILY #30 tab.er.24h 12/12/18 08/01/23 Rx Insulin Glargine,Hum.rec.anlog 8 unit SQ HS 11/25/21 08/01/23 History [Lantus Solostar Pen] Losartan [Cozaar] 50 mg PO HS 11/25/21 08/01/23 History Calcium Acetate 2 tab PO TID-W/MEALS 01/28/22 08/01/23 History Furosemide [Lasix] 80 mg PO DAILY 01/28/22 08/01/23 History Apixaban [Eliquis] 2.5 mg PO BID 08/01/23 08/01/23 History Citalopram Hydrobromide 20 mg PO DAILY 08/01/23 08/01/23 History [Citalopram HBr] Magnesium 200 mg PO DAILY 08/01/23 08/01/23 History Nifedipine (Unknown Dose) 1 tab PO HS 08/01/23 History Ubidecarenone [Co Q-10] 200 mg PO DAILY 08/01/23 08/01/23 History Allergies Allergy/AdvReac Type Severity Reaction Status Date / Time No Known Allergies Allergy Verified 12/09/23 10:16 Physical Exam Vitals: Vital Signs Pulse Pulse Resp BP Pulse Ox FiO2 12/10/23 10:26 40 12/10/23 10:00 74 27 H 115/61 12/10/23 09:45 73 13 124/63 12/10/23 09:37 75 23 115/61 12/10/23 09:30 81 22 148/79 12/10/23 09:17 85 22 124/63 12/10/23 09:15 85 26 H 148/79 12/10/23 09:00 84 20 136/91 12/10/23 08:58 80 21 148/79 12/10/23 08:45 89 22 132/92 12/10/23 08:38 93 24 132/92 12/10/23 08:30 92 24 113/69 12/10/23 08:15 94 25 H 117/71 12/10/23 08:00 94 25 H 116/72 40 12/10/23 07:45 93 22 115/98 12/10/23 07:36 40 12/10/23 07:30 94 22 114/88 12/10/23 07:15 93 21 112/64 12/10/23 07:00 91 21 117/67 12/10/23 06:45 92 20 109/73 12/10/23 06:30 92 21 110/77 12/10/23 06:15 93 19 100/39 12/10/23 06:00 90 20 106/69 12/10/23 05:45 88 18 136/77 12/10/23 05:30 85 20 144/88 12/10/23 05:20 83 19 118/100 12/10/23 05:00 84 20 76/44 91 L 12/10/23 04:45 87 19 114/75 12/10/23 04:30 96 21 126/66 12/10/23 04:15 100 14 135/86 12/10/23 04:00 103 H 16 137/107 40 12/10/23 03:40 101 H 17 114/92 12/10/23 03:30 98 14 93/68 12/10/23 03:20 101 H 17 77/20 12/10/23 03:10 100 17 96/39 12/10/23 03:00 98 17 108/30 12/10/23 02:45 97 17 116/46 40 12/10/23 02:30 99 16 79/46 12/10/23 02:15 100 17 94/38 12/10/23 02:00 101 H 18 75/26 12/10/23 01:45 123 H 18 71/47 12/10/23 01:37 40 12/10/23 01:30 126 H 12 74/28 12/10/23 01:15 133 H 12 81/27 12/10/23 01:10 133 H 4 L 67/39 12/10/23 01:00 149 H 116 H 60/20 12/10/23 00:50 73 9 L 72/51 12/10/23 00:40 77 11 L 12/10/23 00:30 87 22 57/34 12/10/23 00:29 50 12/10/23 00:20 99 20 52/34 12/10/23 00:14 98 20 68/55 12/10/23 00:00 95 17 129/98 12/09/23 23:55 100 12/09/23 23:51 100 12/09/23 23:45 93 9 L 113/65 12/09/23 23:30 111 H 8 L 65/42 12/09/23 23:15 116 H 27 H 58/24 12/09/23 23:00 122 H 26 H 68/42 12/09/23 22:47 96 121 H 22 50 12/09/23 22:15 80 78/46 12/09/23 22:00 72 70/44 12/09/23 21:45 72 70/44 12/09/23 21:30 75 89/37 12/09/23 21:15 64 97/37 12/09/23 21:00 66 17 91/45 95 12/09/23 20:45 64 110/45 12/09/23 20:39 61 16 110/45 95 12/09/23 20:30 57 L 107/44 12/09/23 20:15 52 L 110/41 12/09/23 20:00 58 L 95/54 12/09/23 19:45 58 L 91/38 12/09/23 19:30 64 86/42 12/09/23 19:15 62 17 96/39 96 12/09/23 19:00 64 94/44 12/09/23 18:45 56 L 97/44 12/09/23 18:30 59 L 99/47 95 12/09/23 18:15 60 106/38 98 12/09/23 18:00 58 L 16 103/41 95 12/09/23 17:45 58 L 103/89 95 12/09/23 17:30 61 99/40 92 L 12/09/23 17:15 62 85/40 94 L 12/09/23 17:00 62 18 103/89 96 12/09/23 16:59 86/50 12/09/23 16:00 63 17 100/58 92 L 12/09/23 14:20 75 17 91/59 96 Intake and Output 12/09/23 12/10/23 12/10/23 22:59 06:59 14:59 Intake Total 3177.271 689.337 Balance 3177.271 689.337 Intake: IV 1925 100 0.9 550 25 Dextrose 5% in Water 1, 375 75 000 ml @ 75 mls/hr IV . [id number] DESI with Sodium Bicarb (1 Meq/ml) 150 ml Rx#:[id number] Sodium Chloride 0.9% 1, 1000 000 ml @ 999 mls/hr IV . Q1H1M STA Rx#:[id number] Intake, IV Titration 322.271 88.337 Amount Norepinephrine 32 mg In 65.517 82.171 Sodium Chloride 0.9% 250 ml @ 0.03 MCG/KG/MIN 1. 417 mls/hr IV .Q24H DESI Rx#:[id number] Norepinephrine 4 mg In 254 Sodium Chloride 0.9% 250 ml @ 0.03 MCG/KG/MIN 10. 214 mls/hr IV .Q24H DESI Rx#:[id number] Vasopressin 60 unit In 2.754 Sodium Chloride 0.9% 150 ml @ 0.03 UNITS/MIN 4.59 mls/hr IV .Q24H DESI Rx#: [id number] propofoL 1,000 mg In 6.166 Empty Bag 1 bag @ 15 MCG/ KG/MIN 8.042 mls/hr IV . [id number] DESI Rx#:[id number] Blood Product 930 501 Ffp 24 Pher Acda Cnt1 209 Unit [id number] Platelet Pheresis Pas 292 Psoralen Unit [id number] Rc As-1 Unit 310 [id number] Rc As-1 Unit 310 [id number] Other: # Bowel Movements 1 1 General: Revealed 83-year-old female looks frail, cachectic, chronically ill. Intubated and mechanically ventilated. Skin: Multiple areas of bruising and ecchymosis noted throughout her whole body. Eye: Pupils are equal, round and reactive to light, extra-ocular movements are intact; there is normal conjunctiva bilaterally. Ears, nose, mouth and throat: There are moist mucous membranes and no oral lesions. Endotracheal tube and orogastric tube are intact Neck: The neck is supple, there is no tenderness or JVD. Cardiovascular: There is a regular rate and rhythm. 2/6 systolic murmur throughout the precordium. Respiratory: Diminished breath sound bilaterally no rhonchi no wheezes Gastrointestinal: Soft, non-distended, non-tender abdomen without masses or organomegaly noted. There is no rebound or guarding present. Bowel sounds are unremarkable. Musculoskeletal: No evidence of deformities noted. Extremities: No clubbing, very poor circulation, poor distal pulses, areas of ecchymosis throughout, right AV fistula noted in the right brachial area Neurological: Could not assess, patient is sedated on propofol. Psychiatric: Could not assess . Results - Laboratory Findings CBC and BMP: 12/10/23 10:32 12/10/23 06:11 ABG ABG pH 7.25 (7.35-7.45) L 12/10/23 04:57 ABG pCO2 26 mmHg (35-45) L 12/10/23 04:57 ABG pO2 78 mmHg (83-108) L 12/10/23 04:57 ABG O2 Saturation 95.4 % (94-97) 12/10/23 04:57 PT/INR, D-dimer PT 28.2 sec (10.0-12.5) H 12/10/23 04:00 INR 2.9 (<1.2) H 12/10/23 04:00 Abnormal lab findings: Abnormal Labs 12/09/23 12/09/23 12/09/23 10:29 10:29 10:29 WBC 18.1 H RBC 3.30 L Hgb 10.0 L Hct 31.9 L MCV MCHC RDW Plt Count 85 L Neutrophils # 16.1 H Neutrophils # (Manual) Lymphocytes # 0.7 L Lymphocytes # (Manual) Monocytes # 1.2 H Nucleated RBCs PT INR APTT Fibrinogen ABG pH ABG pCO2 ABG pO2 ABG HCO3 ABG Total CO2 ABG O2 Saturation Sodium 135 L Potassium Chloride Carbon Dioxide 35 H Creatinine 2.04 H Glucose 122 H POC Glucose (mg/dL) Plasma Lactic Acid Fer 2.4 H* Calcium 7.5 L AST 51 H ALT Alkaline Phosphatase 252 H Troponin I C-Reactive Protein Total Protein 4.6 L Albumin 1.9 L Procalcitonin Cortisol Stool Occult Blood SARS-CoV-2 (PCR) Crossmatch 12/09/23 12/09/23 12/09/23 10:29 10:29 11:32 WBC RBC Hgb Hct MCV MCHC RDW Plt Count Neutrophils # Neutrophils # (Manual) Lymphocytes # Lymphocytes # (Manual) Monocytes # Nucleated RBCs PT INR APTT Fibrinogen ABG pH ABG pCO2 ABG pO2 ABG HCO3 ABG Total CO2 ABG O2 Saturation Sodium Potassium Chloride Carbon Dioxide Creatinine Glucose POC Glucose (mg/dL) Plasma Lactic Acid Fer Calcium AST ALT Alkaline Phosphatase Troponin I C-Reactive Protein 8.2 H Total Protein Albumin Procalcitonin 0.78 H Cortisol Stool Occult Blood SARS-CoV-2 (PCR) Detected A Crossmatch 12/09/23 12/09/23 12/09/23 13:38 15:26 16:22 WBC RBC Hgb Hct MCV MCHC RDW Plt Count Neutrophils # Neutrophils # (Manual) Lymphocytes # Lymphocytes # (Manual) Monocytes # Nucleated RBCs PT INR APTT Fibrinogen ABG pH ABG pCO2 ABG pO2 ABG HCO3 ABG Total CO2 ABG O2 Saturation Sodium Potassium Chloride Carbon Dioxide Creatinine Glucose POC Glucose (mg/dL) Plasma Lactic Acid Fer 3.0 H* 2.9 H* Calcium AST ALT Alkaline Phosphatase Troponin I 0.042 H* C-Reactive Protein Total Protein Albumin Procalcitonin Cortisol Stool Occult Blood SARS-CoV-2 (PCR) Crossmatch 12/09/23 12/09/23 12/09/23 18:40 21:45 22:30 WBC RBC Hgb Hct MCV MCHC RDW Plt Count Neutrophils # Neutrophils # (Manual) Lymphocytes # Lymphocytes # (Manual) Monocytes # Nucleated RBCs PT INR APTT Fibrinogen ABG pH ABG pCO2 ABG pO2 ABG HCO3 ABG Total CO2 ABG O2 Saturation Sodium Potassium Chloride Carbon Dioxide Creatinine Glucose POC Glucose (mg/dL) Plasma Lactic Acid Fer Calcium AST ALT Alkaline Phosphatase Troponin I 0.049 H* 0.058 H* C-Reactive Protein Total Protein Albumin Procalcitonin Cortisol Stool Occult Blood Positive H SARS-CoV-2 (PCR) Crossmatch 12/09/23 12/09/23 12/10/23 23:11 23:11 00:23 WBC 12.0 H RBC 2.21 L Hgb 6.8 L* D Hct 23.4 L MCV 105.8 H D MCHC 29.1 L RDW 15.8 H Plt Count 73 L Neutrophils # 9.2 H Neutrophils # (Manual) Lymphocytes # Lymphocytes # (Manual) Monocytes # Nucleated RBCs PT INR APTT Fibrinogen ABG pH 7.15 L* ABG pCO2 ABG pO2 208 H ABG HCO3 14 L ABG Total CO2 16 L ABG O2 Saturation 99.0 H Sodium Potassium Chloride Carbon Dioxide Creatinine Glucose POC Glucose (mg/dL) Plasma Lactic Acid Fer Calcium AST ALT Alkaline Phosphatase Troponin I C-Reactive Protein Total Protein Albumin Procalcitonin Cortisol 49.1 H Stool Occult Blood SARS-CoV-2 (PCR) Crossmatch 12/10/23 12/10/23 12/10/23 01:11 01:50 03:03 WBC RBC Hgb Hct MCV MCHC RDW Plt Count Neutrophils # Neutrophils # (Manual) Lymphocytes # Lymphocytes # (Manual) Monocytes # Nucleated RBCs PT INR APTT Fibrinogen ABG pH ABG pCO2 ABG pO2 ABG HCO3 ABG Total CO2 ABG O2 Saturation Sodium Potassium 5.3 H Chloride Carbon Dioxide Creatinine 2.22 H Glucose 26 L* POC Glucose (mg/dL) 180 H Plasma Lactic Acid Fer Calcium 6.2 L* AST 487 H ALT 141 H Alkaline Phosphatase Troponin I C-Reactive Protein Total Protein 2.2 L Albumin <1.0 L Procalcitonin Cortisol Stool Occult Blood SARS-CoV-2 (PCR) Crossmatch See Detail 12/10/23 12/10/23 12/10/23 04:00 04:57 06:11 WBC 20.7 H RBC 3.67 L Hgb Hct MCV MCHC RDW 15.9 H Plt Count 51 L Neutrophils # Neutrophils # (Manual) 20.20 H Lymphocytes # Lymphocytes # (Manual) 0.41 L Monocytes # Nucleated RBCs 1 H PT 28.2 H INR 2.9 H APTT 44.0 H Fibrinogen 166 L ABG pH 7.25 L ABG pCO2 26 L ABG pO2 78 L ABG HCO3 12 L ABG Total CO2 12 L ABG O2 Saturation Sodium Potassium Chloride Carbon Dioxide Creatinine Glucose POC Glucose (mg/dL) Plasma Lactic Acid Fer Calcium AST ALT Alkaline Phosphatase Troponin I C-Reactive Protein Total Protein Albumin Procalcitonin Cortisol Stool Occult Blood SARS-CoV-2 (PCR) Crossmatch 12/10/23 12/10/23 12/10/23 06:11 10:32 10:54 WBC 21.4 H RBC 3.12 L Hgb 10.1 L Hct 30.6 L MCV MCHC RDW 15.8 H Plt Count 88 L D Neutrophils # 19.1 H Neutrophils # (Manual) Lymphocytes # 0.4 L Lymphocytes # (Manual) Monocytes # 1.7 H Nucleated RBCs PT INR APTT Fibrinogen ABG pH ABG pCO2 ABG pO2 ABG HCO3 ABG Total CO2 ABG O2 Saturation Sodium Potassium Chloride 109 H Carbon Dioxide 14 L Creatinine 2.23 H Glucose 101 H POC Glucose (mg/dL) 25 L Plasma Lactic Acid Fer Calcium 6.3 L* AST ALT Alkaline Phosphatase Troponin I C-Reactive Protein Total Protein Albumin Procalcitonin Cortisol Stool Occult Blood SARS-CoV-2 (PCR) Crossmatch - Diagnostic Findings Chest x-ray: image reviewed (Chest x-ray showed right basilar atelectasis, no clear-cut evidence of congestive heart failure or pulmonary edema) Assessment and Plan Assessment: Impression: Cardiac arrest/PEA witnessed in ICU, downtime is 10 minutes for return of spontaneous circulation Acute respiratory failure requiring intubation mechanical ventilation, this is most likely secondary to GI bleeding and profound hypotension with acute metabolic acidosis Acute GI bleeding, exact etiology is not clear. Hypovolemic hypotension during hemodialysis, Chronic kidney disease, on hemodialysis COVID-19 infection, Chest x-ray showed small patchy area of atelectasis, questionable infiltrate in the right lower lobe not typical of COVID-19 infection, patient is empirically on Rocephin and Zithromax upon admission Acute blood loss anemia secondary to GI bleeding history of underlying coronary artery disease History of aortic valve replacement with bioprosthetic valve History of subclavian vessel disease requiring stenting History of CABG History of bariatric surgery Type 2 diabetes with diabetic nephropathy history of severe pulmonary hypertension Chronic iron deficiency anemia Ex-smoker quit smoking in 2019. Recommendation: Continue ventilatory support Continue hemodynamic support/pressors Consider nutritional support however considering her GI bleeding that we will be addressed later. GI and DVT prophylaxis. Continue Eliquis on hold. Transfuse for any hemoglobin below 7 Considering no GI coverage available, patient will be better off transfer to a tertiary care center. Prognosis is extremely poor and guarded Patient is critically ill. Will proceed with transfer as already arranged for by the admitting physician
--- NOTE | 2023-12-11 16:36 | P.HPIM ---
History of Present Illness H&P Date: 12/10/23 This is a 83-year-old female with medical history significant for diabetes mellitus, coronary artery disease, gastroesophageal reflux disease, hypertension, hyperlipidemia, pulmonary embolism maintained on Eliquis at 2.5 mg twice a day. Patient also with history of end-stage renal disease maintained on hemodialysis Tuesday. Patient comes into the hospital for reports of hypotension and generalized weakness. Patient was undergoing hemodialysis with BP noted to be 70/30 and was recommended to come to the hospital for evaluation. Upon presentation patient was found to be positive for COVID with a right lower lobe opacity found on chest x-ray. She was admitted to the hospital on the medical floor COVID and pneumonia with sepsis. Patient received 3 L of fluid resuscitation was resumed on her home medications including midodrine her blood pressure continued to decline. Patient was at 50 over 30s and transfer orders were initiated to the intensive care unit for ICU management and blood pressure support recommending to start the patient on Levophed. Upon arrival to the intensive care unit nursing reports that patient had a copious maroon-colored stool with clots and was continuing to be hypotensive patient became obtunded. subsequently patient was intubated and ended up maxed out on Levophed with the addition of vasopressin added. Nursing staff was unable to obtain blood work for this reason a emergent unit of packed red blood cells was administered when blood work returned patient's hemoglobin was found to be 6.8 it was 10 on admission earlier in the day. A second unit of blood was ordered as well as a dose of Kcentra for Eliquis reversal and a unit of platelets. There was no GI coverage in the hospital currently surgery was consulted however the recommendation was made by the care team for transfer to a tertiary care center for further management. She went into PEA around 1 AM, unable to get a hold of family at this time but despite multiple attempts by the writing physician and the nursing team. Patient was accepted by Dr. Che for ICU management at [facility] and is continued to be monitored in the intensive care unit pending bed placement and patient will be transported by air flight. Family was able to be contacted around 4:30 in the morning and reports that they would like patient to remain a full code and they will arrive to the hospital shortly. Patient's blood pressure did improve to 100s over these remains on the mechanical ventilator intubated with an FiO2 of 40%. Blood work reveals a hemoglobin of 10.1, white count of 21.4 platelet count of 88, sodium 138, potassium 3.9, BUN 14, creatinine 2.23, calcium level of 6.3, magnesium 1.9. Patient was clinically found to be stable for transfer by the intensive care team. REVIEW OF SYSTEMS: \Unable to complete at the time of my assessment patient is currently intubated on the mechanical ventilator PHYSICAL EXAMINATION: GENERAL: Patient is intubed not in any acute distress. Well developed, well nourished. HEENT: Pupils are round and equally reacting to light. EOMI. No scleral icterus. No conjunctival pallor. Normocephalic, atraumatic. No pharyngeal erythema. No thyromegaly. CARDIOVASCULAR: S1 and S2 present. No murmurs, rubs, or gallops. PULMONARY: Chest is clear to auscultation, no wheezing or crackles. ABDOMEN: Soft, nontender, nondistended, normoactive bowel sounds. No palpable organomegaly. MUSCULOSKELETAL: No joint swelling or deformity. EXTREMITIES: No cyanosis, clubbing, or pedal edema. NEUROLOGICAL: Gross neurological examination did not reveal any focal deficits. Unable To fully assess patient is currently sedated SKIN: No rashes. Assessment and Plan -Acute COVID infection with sepsis patient has underlying right lower lobe opacity concerning for possible underlying bacterial pneumonia. Patient is a placed on empiric antibiotic coverage with Rocephin and azithromycin. Blood cultures are taken. -Hypotension secondary to sepsis and septic shock patient required vasopressor support was placed on Levophed maxed out an additional vasopressin was added. -Cardiac arrest/PEA witnessed in ICU, downtime is 10 minutes for return of spontaneous circulation -Acute respiratory failure requiring intubation mechanical ventilation, this is most likely secondary to GI bleeding and profound hypotension with acute metabolic acidosis -Acute GI bleeding, exact etiology is not clear. Patient is maintained on Eliquis outpatient for pulmonary embolism history. Patient is given Kcentra, 2 units of packed red blood cells, 1 unit of platelets and 1 unit of FFP. -Acute blood loss anemia secondary to above patient will require transfer to tertiary care center for further GI evaluation. Hemoglobin has improved up to 10.1 status post 2 units of PRBCs -Hypovolemic hypotension during hemodialysis, -End-stage renal disease maintained on hemodialysis outpatient -history of underlying coronary artery disease -History of aortic valve replacement with bioprosthetic valve -History of subclavian vessel disease requiring stenting -History of CABG -History of bariatric surgery -Type 2 diabetes with diabetic nephropathy -history of severe pulmonary hypertension -Chronic iron deficiency anemia -Former tobacco use quit smoking in 2019 GI prophylaxis DVT prophylaxis contraindicated as patient is acute GI bleed will recommend to hold Eliquis at this time Full code Greater than 35 minutes was taken in coordination of care and assessment. The impression and plan of care has been dictated by Bella Oscar, Nurse Practitioner as directed. Dr. Sanya MD I have performed a history and physical examination and medical decision making of this patient, discussed the same with the dictator, and agree with the dictators assessment and plan as written, documented as a scribe. Based on total visit time, I have performed more than 50% of this visit. Past Medical History Past Medical History: Coronary Artery Disease (CAD), Diabetes Mellitus, GERD/Reflux, Hearing Disorder / Deafness, Hyperlipidemia, Hypertension, Osteoarthritis (OA), Pulmonary Embolus (PE), Renal Disease Additional Past Medical History / Comment(s): hemodialysis MO-WE-FR., Hard of hearing., Hx PE many years ago., hx tia (affected right eye ), states poor vision- does not have glasses , anemia, frequent diarrhea. History of Any Multi-Drug Resistant Organisms: None Reported Past Surgical History: Bariatric Surgery Additional Past Surgical History / Comment(s): Aortic valve replacement X3. LEFT CAROTID ENDARTECTOMY WITH STENT. gastric bypass, fistula rt arm for dialysis. , left subclavian stent. Past Anesthesia/Blood Transfusion Reactions: No Reported Reaction Past Psychological History: Depression Smoking Status: Current every day smoker, Heavy tobacco smoker Past Alcohol Use History: None Reported Past Drug Use History: None Reported - Past Family History Mother Family Medical History: Coronary Artery Disease (CAD) Father Family Medical History: Coronary Artery Disease (CAD) Additional Family Medical History / Comment(s): FATHER PASSED AT AGE 49. Medications and Allergies Home Medications Medication Instructions Recorded Confirmed Type Atorvastatin [Lipitor] 40 mg PO HS 12/03/18 10/12/22 History Gabapentin [Neurontin] 300 mg PO HS 12/03/18 08/01/23 History Omeprazole [PriLOSEC] 20 mg PO BID 12/03/18 08/01/23 History Isosorbide Mononitrate ER [Imdur] 30 mg PO DAILY #30 tab.er.24h 12/12/18 08/01/23 Rx Insulin Glargine,Hum.rec.anlog 8 unit SQ HS 11/25/21 08/01/23 History [Lantus Solostar Pen] Losartan [Cozaar] 50 mg PO HS 11/25/21 08/01/23 History Calcium Acetate 2 tab PO TID-W/MEALS 01/28/22 08/01/23 History Furosemide [Lasix] 80 mg PO DAILY 01/28/22 08/01/23 History Apixaban [Eliquis] 2.5 mg PO BID 08/01/23 08/01/23 History Citalopram Hydrobromide 20 mg PO DAILY 08/01/23 08/01/23 History [Citalopram HBr] Magnesium 200 mg PO DAILY 08/01/23 08/01/23 History Nifedipine (Unknown Dose) 1 tab PO HS 08/01/23 History Ubidecarenone [Co Q-10] 200 mg PO DAILY 08/01/23 08/01/23 History Allergies Allergy/AdvReac Type Severity Reaction Status Date / Time No Known Allergies Allergy Verified 12/09/23 10:16 Physical Exam Vitals: Vital Signs Temp Pulse Pulse Resp BP Pulse Ox FiO2 12/10/23 07:36 40 12/10/23 07:00 91 21 117/67 12/10/23 06:45 92 20 109/73 12/10/23 06:30 92 21 110/77 12/10/23 06:15 93 19 100/39 12/10/23 06:00 90 20 106/69 12/10/23 05:45 88 18 136/77 12/10/23 05:30 85 20 144/88 12/10/23 05:20 83 19 118/100 12/10/23 05:00 84 20 76/44 91 L 12/10/23 04:45 87 19 114/75 12/10/23 04:30 96 21 126/66 12/10/23 04:15 100 14 135/86 12/10/23 04:00 103 H 16 137/107 40 12/10/23 03:40 101 H 17 114/92 12/10/23 03:30 98 14 93/68 12/10/23 03:20 101 H 17 77/20 12/10/23 03:10 100 17 96/39 12/10/23 03:00 98 17 108/30 12/10/23 02:45 97 17 116/46 40 12/10/23 02:30 99 16 79/46 12/10/23 02:15 100 17 94/38 12/10/23 02:00 101 H 18 75/26 12/10/23 01:45 123 H 18 71/47 12/10/23 01:37 40 12/10/23 01:30 126 H 12 74/28 12/10/23 01:15 133 H 12 81/27 12/10/23 01:10 133 H 4 L 67/39 12/10/23 01:00 149 H 116 H 60/20 12/10/23 00:50 73 9 L 72/51 12/10/23 00:40 77 11 L 12/10/23 00:30 87 22 57/34 12/10/23 00:29 50 12/10/23 00:20 99 20 52/34 12/10/23 00:14 98 20 68/55 12/10/23 00:00 95 17 129/98 12/09/23 23:55 100 12/09/23 23:51 100 12/09/23 23:45 93 9 L 113/65 12/09/23 23:30 111 H 8 L 65/42 12/09/23 23:15 116 H 27 H 58/24 12/09/23 23:00 122 H 26 H 68/42 12/09/23 22:47 96 121 H 22 50 12/09/23 22:15 80 78/46 12/09/23 22:00 72 70/44 12/09/23 21:45 72 70/44 12/09/23 21:30 75 89/37 12/09/23 21:15 64 97/37 12/09/23 21:00 66 17 91/45 95 12/09/23 20:45 64 110/45 12/09/23 20:39 61 16 110/45 95 12/09/23 20:30 57 L 107/44 12/09/23 20:15 52 L 110/41 12/09/23 20:00 58 L 95/54 12/09/23 19:45 58 L 91/38 12/09/23 19:30 64 86/42 12/09/23 19:15 62 17 96/39 96 12/09/23 19:00 64 94/44 12/09/23 18:45 56 L 97/44 12/09/23 18:30 59 L 99/47 95 12/09/23 18:15 60 106/38 98 12/09/23 18:00 58 L 16 103/41 95 12/09/23 17:45 58 L 103/89 95 12/09/23 17:30 61 99/40 92 L 12/09/23 17:15 62 85/40 94 L 12/09/23 17:00 62 18 103/89 96 12/09/23 16:59 86/50 12/09/23 16:00 63 17 100/58 92 L 12/09/23 14:20 75 17 91/59 96 12/09/23 11:31 60 18 124/69 96 12/09/23 10:06 97 F L 62 18 109/57 98 Intake and Output 12/09/23 12/10/23 12/10/23 22:59 06:59 14:59 Intake Total 3177.271 162.682 Balance 3177.271 162.682 Intake: IV 1925 100 0.9 550 25 Dextrose 5% in Water 1, 375 75 000 ml @ 75 mls/hr IV . [id number] DESI with Sodium Bicarb (1 Meq/ml) 150 ml Rx#:[id number] Sodium Chloride 0.9% 1, 1000 000 ml @ 999 mls/hr IV . Q1H1M STA Rx#:[id number] Intake, IV Titration 322.271 62.682 Amount Norepinephrine 32 mg In 65.517 62.682 Sodium Chloride 0.9% 250 ml @ 0.03 MCG/KG/MIN 1. 417 mls/hr IV .Q24H DESI Rx#:[id number] Norepinephrine 4 mg In 254 Sodium Chloride 0.9% 250 ml @ 0.03 MCG/KG/MIN 10. 214 mls/hr IV .Q24H DESI Rx#:[id number] Vasopressin 60 unit In 2.754 Sodium Chloride 0.9% 150 ml @ 0.03 UNITS/MIN 4.59 mls/hr IV .Q24H DESI Rx#: [id number] Blood Product 930 0 Unit 0 Ffp 24 Pher Acda Cnt1 0 Unit [id number] Rc As-1 Unit 310 [id number] Rc As-1 Unit 310 [id number] Other: # Bowel Movements 1 Results CBC & Chem 7: 12/10/23 10:32 12/10/23 06:11 Labs: Abnormal Lab Results - Last 24 Hours (Table) 12/09/23 12/09/23 12/09/23 Range/Units 10:29 10:29 10:29 WBC 18.1 H (3.8-10.6) k/uL RBC 3.30 L (3.80-5.40) m/uL Hgb 10.0 L (11.4-16.0) gm/dL Hct 31.9 L (34.0-46.0) % MCV (80.0-100.0) fL MCHC (31.0-37.0) g/dL RDW (11.5-15.5) % Plt Count 85 L (150-450) k/uL Neutrophils # 16.1 H (1.3-7.7) k/uL Neutrophils # (Manual) (1.3-7.7) k/uL Lymphocytes # 0.7 L (1.0-4.8) k/uL Lymphocytes # (Manual) (1.0-4.8) k/uL Monocytes # 1.2 H (0-1.0) k/uL Nucleated RBCs (0-0) /100 WBC PT (10.0-12.5) sec INR (<1.2) APTT (22.0-30.0) sec Fibrinogen (200-500) mg/dL ABG pH (7.35-7.45) ABG pCO2 (35-45) mmHg ABG pO2 (83-108) mmHg ABG HCO3 (21-25) mmol/L ABG Total CO2 (19-24) mmol/L ABG O2 Saturation (94-97) % Sodium 135 L (137-145) mmol/L Potassium (3.5-5.1) mmol/L Chloride (98-107) mmol/L Carbon Dioxide 35 H (22-30) mmol/L Creatinine 2.04 H (0.52-1.04) mg/dL Glucose 122 H (74-99) mg/dL POC Glucose (mg/dL) (70-110) mg/dL Plasma Lactic Acid Fer 2.4 H* (0.7-2.0) mmol/L Calcium 7.5 L (8.4-10.2) mg/dL AST 51 H (14-36) U/L ALT (4-34) U/L Alkaline Phosphatase 252 H (38-126) U/L Troponin I (0.000-0.034) ng/mL C-Reactive Protein (<1.0) mg/dL Total Protein 4.6 L (6.3-8.2) g/dL Albumin 1.9 L (3.5-5.0) g/dL Procalcitonin (0.02-0.09) ng/mL Stool Occult Blood (Negative) SARS-CoV-2 (PCR) (Not Detectd) Crossmatch 12/09/23 12/09/23 12/09/23 Range/Units 10:29 10:29 11:32 WBC (3.8-10.6) k/uL RBC (3.80-5.40) m/uL Hgb (11.4-16.0) gm/dL Hct (34.0-46.0) % MCV (80.0-100.0) fL MCHC (31.0-37.0) g/dL RDW (11.5-15.5) % Plt Count (150-450) k/uL Neutrophils # (1.3-7.7) k/uL Neutrophils # (Manual) (1.3-7.7) k/uL Lymphocytes # (1.0-4.8) k/uL Lymphocytes # (Manual) (1.0-4.8) k/uL Monocytes # (0-1.0) k/uL Nucleated RBCs (0-0) /100 WBC PT (10.0-12.5) sec INR (<1.2) APTT (22.0-30.0) sec Fibrinogen (200-500) mg/dL ABG pH (7.35-7.45) ABG pCO2 (35-45) mmHg ABG pO2 (83-108) mmHg ABG HCO3 (21-25) mmol/L ABG Total CO2 (19-24) mmol/L ABG O2 Saturation (94-97) % Sodium (137-145) mmol/L Potassium (3.5-5.1) mmol/L Chloride (98-107) mmol/L Carbon Dioxide (22-30) mmol/L Creatinine (0.52-1.04) mg/dL Glucose (74-99) mg/dL POC Glucose (mg/dL) (70-110) mg/dL Plasma Lactic Acid Fer (0.7-2.0) mmol/L Calcium (8.4-10.2) mg/dL AST (14-36) U/L ALT (4-34) U/L Alkaline Phosphatase (38-126) U/L Troponin I (0.000-0.034) ng/mL C-Reactive Protein 8.2 H (<1.0) mg/dL Total Protein (6.3-8.2) g/dL Albumin (3.5-5.0) g/dL Procalcitonin 0.78 H (0.02-0.09) ng/mL Stool Occult Blood (Negative) SARS-CoV-2 (PCR) Detected A (Not Detectd) Crossmatch 12/09/23 12/09/23 12/09/23 Range/Units 13:38 15:26 16:22 WBC (3.8-10.6) k/uL RBC (3.80-5.40) m/uL Hgb (11.4-16.0) gm/dL Hct (34.0-46.0) % MCV (80.0-100.0) fL MCHC (31.0-37.0) g/dL RDW (11.5-15.5) % Plt Count (150-450) k/uL Neutrophils # (1.3-7.7) k/uL Neutrophils # (Manual) (1.3-7.7) k/uL Lymphocytes # (1.0-4.8) k/uL Lymphocytes # (Manual) (1.0-4.8) k/uL Monocytes # (0-1.0) k/uL Nucleated RBCs (0-0) /100 WBC PT (10.0-12.5) sec INR (<1.2) APTT (22.0-30.0) sec Fibrinogen (200-500) mg/dL ABG pH (7.35-7.45) ABG pCO2 (35-45) mmHg ABG pO2 (83-108) mmHg ABG HCO3 (21-25) mmol/L ABG Total CO2 (19-24) mmol/L ABG O2 Saturation (94-97) % Sodium (137-145) mmol/L Potassium (3.5-5.1) mmol/L Chloride (98-107) mmol/L Carbon Dioxide (22-30) mmol/L Creatinine (0.52-1.04) mg/dL Glucose (74-99) mg/dL POC Glucose (mg/dL) (70-110) mg/dL Plasma Lactic Acid Fer 3.0 H* 2.9 H* (0.7-2.0) mmol/L Calcium (8.4-10.2) mg/dL AST (14-36) U/L ALT (4-34) U/L Alkaline Phosphatase (38-126) U/L Troponin I 0.042 H* (0.000-0.034) ng/mL C-Reactive Protein (<1.0) mg/dL Total Protein (6.3-8.2) g/dL Albumin (3.5-5.0) g/dL Procalcitonin (0.02-0.09) ng/mL Stool Occult Blood (Negative) SARS-CoV-2 (PCR) (Not Detectd) Crossmatch 12/09/23 12/09/23 12/09/23 Range/Units 18:40 21:45 22:30 WBC (3.8-10.6) k/uL RBC (3.80-5.40) m/uL Hgb (11.4-16.0) gm/dL Hct (34.0-46.0) % MCV (80.0-100.0) fL MCHC (31.0-37.0) g/dL RDW (11.5-15.5) % Plt Count (150-450) k/uL Neutrophils # (1.3-7.7) k/uL Neutrophils # (Manual) (1.3-7.7) k/uL Lymphocytes # (1.0-4.8) k/uL Lymphocytes # (Manual) (1.0-4.8) k/uL Monocytes # (0-1.0) k/uL Nucleated RBCs (0-0) /100 WBC PT (10.0-12.5) sec INR (<1.2) APTT (22.0-30.0) sec Fibrinogen (200-500) mg/dL ABG pH (7.35-7.45) ABG pCO2 (35-45) mmHg ABG pO2 (83-108) mmHg ABG HCO3 (21-25) mmol/L ABG Total CO2 (19-24) mmol/L ABG O2 Saturation (94-97) % Sodium (137-145) mmol/L Potassium (3.5-5.1) mmol/L Chloride (98-107) mmol/L Carbon Dioxide (22-30) mmol/L Creatinine (0.52-1.04) mg/dL Glucose (74-99) mg/dL POC Glucose (mg/dL) (70-110) mg/dL Plasma Lactic Acid Fer (0.7-2.0) mmol/L Calcium (8.4-10.2) mg/dL AST (14-36) U/L ALT (4-34) U/L Alkaline Phosphatase (38-126) U/L Troponin I 0.049 H* 0.058 H* (0.000-0.034) ng/mL C-Reactive Protein (<1.0) mg/dL Total Protein (6.3-8.2) g/dL Albumin (3.5-5.0) g/dL Procalcitonin (0.02-0.09) ng/mL Stool Occult Blood Positive H (Negative) SARS-CoV-2 (PCR) (Not Detectd) Crossmatch 12/09/23 12/10/23 12/10/23 Range/Units 23:11 00:23 01:11 WBC 12.0 H (3.8-10.6) k/uL RBC 2.21 L (3.80-5.40) m/uL Hgb 6.8 L* D (11.4-16.0) gm/dL Hct 23.4 L (34.0-46.0) % MCV 105.8 H D (80.0-100.0) fL MCHC 29.1 L (31.0-37.0) g/dL RDW 15.8 H (11.5-15.5) % Plt Count 73 L (150-450) k/uL Neutrophils # 9.2 H (1.3-7.7) k/uL Neutrophils # (Manual) (1.3-7.7) k/uL Lymphocytes # (1.0-4.8) k/uL Lymphocytes # (Manual) (1.0-4.8) k/uL Monocytes # (0-1.0) k/uL Nucleated RBCs (0-0) /100 WBC PT (10.0-12.5) sec INR (<1.2) APTT (22.0-30.0) sec Fibrinogen (200-500) mg/dL ABG pH 7.15 L* (7.35-7.45) ABG pCO2 (35-45) mmHg ABG pO2 208 H (83-108) mmHg ABG HCO3 14 L (21-25) mmol/L ABG Total CO2 16 L (19-24) mmol/L ABG O2 Saturation 99.0 H (94-97) % Sodium (137-145) mmol/L Potassium 5.3 H (3.5-5.1) mmol/L Chloride (98-107) mmol/L Carbon Dioxide (22-30) mmol/L Creatinine 2.22 H (0.52-1.04) mg/dL Glucose 26 L* (74-99) mg/dL POC Glucose (mg/dL) (70-110) mg/dL Plasma Lactic Acid Fer (0.7-2.0) mmol/L Calcium 6.2 L* (8.4-10.2) mg/dL AST 487 H (14-36) U/L ALT 141 H (4-34) U/L Alkaline Phosphatase (38-126) U/L Troponin I (0.000-0.034) ng/mL C-Reactive Protein (<1.0) mg/dL Total Protein 2.2 L (6.3-8.2) g/dL Albumin <1.0 L (3.5-5.0) g/dL Procalcitonin (0.02-0.09) ng/mL Stool Occult Blood (Negative) SARS-CoV-2 (PCR) (Not Detectd) Crossmatch 12/10/23 12/10/23 12/10/23 Range/Units 01:50 03:03 04:00 WBC (3.8-10.6) k/uL RBC (3.80-5.40) m/uL Hgb (11.4-16.0) gm/dL Hct (34.0-46.0) % MCV (80.0-100.0) fL MCHC (31.0-37.0) g/dL RDW (11.5-15.5) % Plt Count (150-450) k/uL Neutrophils # (1.3-7.7) k/uL Neutrophils # (Manual) (1.3-7.7) k/uL Lymphocytes # (1.0-4.8) k/uL Lymphocytes # (Manual) (1.0-4.8) k/uL Monocytes # (0-1.0) k/uL Nucleated RBCs (0-0) /100 WBC PT 28.2 H (10.0-12.5) sec INR 2.9 H (<1.2) APTT 44.0 H (22.0-30.0) sec Fibrinogen 166 L (200-500) mg/dL ABG pH (7.35-7.45) ABG pCO2 (35-45) mmHg ABG pO2 (83-108) mmHg ABG HCO3 (21-25) mmol/L ABG Total CO2 (19-24) mmol/L ABG O2 Saturation (94-97) % Sodium (137-145) mmol/L Potassium (3.5-5.1) mmol/L Chloride (98-107) mmol/L Carbon Dioxide (22-30) mmol/L Creatinine (0.52-1.04) mg/dL Glucose (74-99) mg/dL POC Glucose (mg/dL) 180 H (70-110) mg/dL Plasma Lactic Acid Fer (0.7-2.0) mmol/L Calcium (8.4-10.2) mg/dL AST (14-36) U/L ALT (4-34) U/L Alkaline Phosphatase (38-126) U/L Troponin I (0.000-0.034) ng/mL C-Reactive Protein (<1.0) mg/dL Total Protein (6.3-8.2) g/dL Albumin (3.5-5.0) g/dL Procalcitonin (0.02-0.09) ng/mL Stool Occult Blood (Negative) SARS-CoV-2 (PCR) (Not Detectd) Crossmatch See Detail 12/10/23 12/10/23 12/10/23 Range/Units 04:57 06:11 06:11 WBC 20.7 H (3.8-10.6) k/uL RBC 3.67 L (3.80-5.40) m/uL Hgb (11.4-16.0) gm/dL Hct (34.0-46.0) % MCV (80.0-100.0) fL MCHC (31.0-37.0) g/dL RDW 15.9 H (11.5-15.5) % Plt Count 51 L (150-450) k/uL Neutrophils # (1.3-7.7) k/uL Neutrophils # (Manual) 20.20 H (1.3-7.7) k/uL Lymphocytes # (1.0-4.8) k/uL Lymphocytes # (Manual) 0.41 L (1.0-4.8) k/uL Monocytes # (0-1.0) k/uL Nucleated RBCs 1 H (0-0) /100 WBC PT (10.0-12.5) sec INR (<1.2) APTT (22.0-30.0) sec Fibrinogen (200-500) mg/dL ABG pH 7.25 L (7.35-7.45) ABG pCO2 26 L (35-45) mmHg ABG pO2 78 L (83-108) mmHg ABG HCO3 12 L (21-25) mmol/L ABG Total CO2 12 L (19-24) mmol/L ABG O2 Saturation (94-97) % Sodium (137-145) mmol/L Potassium (3.5-5.1) mmol/L Chloride 109 H (98-107) mmol/L Carbon Dioxide 14 L (22-30) mmol/L Creatinine 2.23 H (0.52-1.04) mg/dL Glucose 101 H (74-99) mg/dL POC Glucose (mg/dL) (70-110) mg/dL Plasma Lactic Acid Fer (0.7-2.0) mmol/L Calcium 6.3 L* (8.4-10.2) mg/dL AST (14-36) U/L ALT (4-34) U/L Alkaline Phosphatase (38-126) U/L Troponin I (0.000-0.034) ng/mL C-Reactive Protein (<1.0) mg/dL Total Protein (6.3-8.2) g/dL Albumin (3.5-5.0) g/dL Procalcitonin (0.02-0.09) ng/mL Stool Occult Blood (Negative) SARS-CoV-2 (PCR) (Not Detectd) Crossmatch Assessment and Plan Time with Patient: Greater than 30
--- NOTE | 2023-12-13 21:51 | P.TRANS ---
Providers Date of admission: 12/09/23 22:12 Attending physician: Alex Zavala Consults: 12/09/23 16:46 Consult Physician Urgent Consulting Provider: Frank Meléndez Consult Reason/Comments: Renal failure on hemodialysis patient Do you want consulting provider notified?: Yes Consult Physician Urgent Consulting Provider: Sanjana Wilson Consult Reason/Comments: COVID-19, pneumonia Do you want consulting provider notified?: Yes 12/09/23 22:02 Consult Physician Stat Consulting Provider: Sanjana Wilson Consult Reason/Comments: hypotension Do you want consulting provider notified?: Yes 12/09/23 22:53 Consult Physician Stat Consulting Provider: Satinder Giles Consult Reason/Comments: GI Bleed Do you want consulting provider notified?: Yes Primary care physician: Ru Dempsey [facility] Course: This is a 83-year-old female with medical history significant for diabetes mellitus, coronary artery disease, gastroesophageal reflux disease, hypertension, hyperlipidemia, pulmonary embolism maintained on Eliquis at 2.5 mg twice a day. Patient also with history of end-stage renal disease maintained on hemodialysis Tuesday. Patient comes into the hospital for reports of hypotension and generalized weakness. Patient was undergoing hemodialysis with BP noted to be 70/30 and was recommended to come to the hospital for evaluation. Upon presentation patient was found to be positive for COVID with a right lower lobe opacity found on chest x-ray. She was admitted to the hospital on the medical floor COVID and pneumonia with sepsis. Patient received 3 L of fluid resuscitation was resumed on her home medications including midodrine her blood pressure continued to decline. Patient was at 50 over 30s and transfer orders were initiated to the intensive care unit for ICU management and blood pressure support recommending to start the patient on Levophed. Upon arrival to the intensive care unit nursing reports that patient had a copious maroon-colored stool with clots and was continuing to be hypo tensive patient became obtunded. subsequently patient was intubated and ended up maxed out on Levophed with the addition of vasopressin added. Nursing staff was unable to obtain blood work for this reason a emergent unit of packed red blood cells was administered when blood work returned patient's hemoglobin was found to be 6.8 it was 10 on admission earlier in the day. A second unit of blood was ordered as well as a dose of Kcentra for Eliquis reversal and a unit of platelets. There was no GI coverage in the hospital currently surgery was consulted however the recommendation was made by the care team for transfer to a tertiary care center for further management. She went into PEA around 1 AM, unable to get a hold of family at this time but despite multiple attempts by the writing physician and the nursing team. Patient was accepted by Dr. Che for ICU management at [facility] and is continued to be monitored in the intensive care unit pending bed placement and patient will be transported by air flight. Family was able to be contacted around 4:30 in the morning and reports that they would like patient to remain a full code and they will arrive to the hospital shortly. Patient's blood pressure did improve to 100s over these remains on the mechanical ventilator intubated with an FiO2 of 40%. Blood work reveals a hemoglobin of 10.1, white count of 21.4 platelet count of 88, sodium 138, potassium 3.9, BUN 14, creatinine 2.23, calcium level of 6.3, magnesium 1.9. Patient was clinically found to be stable for transfer by the intensive care team. REVIEW OF SYSTEMS: \Unable to complete at the time of my assessment patient is currently intubated on the mechanical ventilator PHYSICAL EXAMINATION: GENERAL: Patient is intubed not in any acute distress. Well developed, well nourished. HEENT: Pupils are round and equally reacting to light. EOMI. No scleral icterus. No conjunctival pallor. Normocephalic, atraumatic. No pharyngeal erythema. No thyromegaly. CARDIOVASCULAR: S1 and S2 present. No murmurs, rubs, or gallops. PULMONARY: Chest is clear to auscultation, no wheezing or crackles. ABDOMEN: Soft, nontender, nondistended, normoactive bowel sounds. No palpable organomegaly. MUSCULOSKELETAL: No joint swelling or deformity. EXTREMITIES: No cyanosis, clubbing, or pedal edema. NEUROLOGICAL: Gross neurological examination did not reveal any focal deficits. Unable To fully assess patient is currently sedated SKIN: No rashes. Assessment and Plan -Acute COVID infection with sepsis patient has underlying right lower lobe opacity concerning for possible underlying bacterial pneumonia. Patient is a placed on empiric antibiotic coverage with Rocephin and azithromycin. Blood cultures are taken. -Hypotension secondary to sepsis and septic shock patient required vasopressor support was placed on Levophed maxed out an additional vasopressin was added. -Cardiac arrest/PEA witnessed in ICU, downtime is 10 minutes for return of spontaneous circulation -Acute respiratory failure requiring intubation mechanical ventilation, this is most likely secondary to GI bleeding and profound hypotension with acute metabolic acidosis -Acute GI bleeding, exact etiology is not clear. Patient is maintained on Eliquis outpatient for pulmonary embolism history. Patient is given Kcentra, 2 units of packed red blood cells, 1 unit of platelets and 1 unit of FFP. -Acute blood loss anemia secondary to above patient will require transfer to tertiary care center for further GI evaluation. Hemoglobin has improved up to 10.1 status post 2 units of PRBCs -Hypovolemic hypotension during hemodialysis, -End-stage renal disease maintained on hemodialysis outpatient -history of underlying coronary artery disease -History of aortic valve replacement with bioprosthetic valve -History of subclavian vessel disease requiring stenting -History of CABG -History of bariatric surgery -Type 2 diabetes with diabetic nephropathy -history of severe pulmonary hypertension -Chronic iron deficiency anemia -Former tobacco use quit smoking in 2019 GI prophylaxis DVT prophylaxis contraindicated as patient is acute GI bleed will recommend to hold Eliquis at this time Full code Patient was transferred to [facility] accepted under Dr Che. Transfer by life flight 12/10/2023 1130. Greater than 35 minutes was taken in coordination of care and assessment. The impression and plan of care has been dictated by Bella Oscar Nurse Practitioner as directed. Dr. Sanya MD I have performed a history and physical examination and medical decision making of this patient, discussed the same with the dictator, and agree with the dictators assessment and plan as written, documented as a scribe. Based on total visit time, I have performed more than 50% of this visit. Plan - Transfer Summary Follow up Appointment(s)/Referral(s): Ru Dempsey MD [Primary Care Provider] - 1-2 days Discharge Disposition: TRANSFER TO SHORT TERM HOSP
--- NOTE | 2023-12-14 06:09 | CDI ---
Documentation Clarification Form Date: 12/14/2023 05:52:26 AM From: Patricia Ramirez Admit Date: 12/09/2023 10:12:00 PM Patient Name: Mattie Chowdary I Visit Number: [id number] Discharge Date: 12/10/2023 01:02:00 PM ATTENTION: The Clinical Documentation Specialists (CDI) and [facility] Coding Staff appreciate your assistance in clarifying documentation. Please respond to the clarification below the line at the bottom and electronically sign. The CDI & [facility] Coding staff will review the response and follow-up if needed. Please note: Queries are made part of the Legal Health Record. If you have any questions, please contact the author of this message via ITS. Dr. Sanjana Wilson, Acute respiratory failure is documented in H&P, but the type is not noted in subsequent documentation. Clarification is requested. History/Risk Factors: HTN w ESRD on hemodialysis, COPD, T2DM w CKD, HLD, CAD w CABG, former smoker Clinical Indicators: Blood gas: pH 7.15, pO2 208, HCO3 14, Total CO2 16, O2 saturation 99.0, FiO2 100. Developed respiratory arrest on 12/09 2334 Treatment: Intubation and mechanical ventilation on 12/09 @ 2341. Please clarify if the type of acute respiratory failure: [ ] Acute Hypoxic Respiratory Failure [ ] Acute Hypercapnia Respiratory Failure [ ] Other condition, please specify [x ] Unable to determine MTDD
--- NOTE | 2023-12-15 05:38 | CDI ---
Documentation Clarification Form Date: 12/15/2023 From: Patricia Ramirez Admit Date: 12/09/2023 10:12:00 PM Patient Name: Mattie Chowdary I Visit Number: [id number] Discharge Date: 12/10/2023 01:02:00 PM ATTENTION: The Clinical Documentation Specialists (CDI) and [facility] Coding Staff appreciate your assistance in clarifying documentation. Please respond to the clarification below the line at the bottom and electronically sign. The CDI & [facility] Coding staff will review the response and follow-up if needed. Please note: Queries are made part of the Legal Health Record. If you have any questions, please contact the author of this message via ITS. Dr. Tricia Segundo, Acute respiratory failure is documented in H&P, but the type is not noted in subsequent documentation. Clarification is requested. History/Risk Factors: HTN w ESRD on hemodialysis, COPD, T2DM w CKD, HLD, CAD w CABG, former smoker Clinical Indicators: Blood gas: pH 7.15, pO2 208, HCO3 14, Total CO2 16, O2 saturation 99.0, FiO2 100. Developed respiratory arrest on 12/09 2334 Treatment: Intubation and mechanical ventilation on 12/09 @ 2341. Please clarify if the type of acute respiratory failure: [ x] Acute Hypoxic Respiratory Failure [ x ] Acute Hypercapnia Respiratory Failure [ ] Other condition, please specify [ ] Unable to determine MTDD
== END 2023-12-10 13:02 | disposition short-term general hospital (02) | DRG 871 ==
LOC: EC 10:05 → 3SCARD 18:36 → 2SICU 22:09 → INTOOBSV 22:12 → OBSVTOIN 22:12 → UNDODISOB 12-10 13:02
PROVIDERS: ADMIT Hospitalist; ATTEND Hospitalist
PROC: 5A1935Z Respiratory Ventilation, Less than 24 Consecutive Hours (ICD-10-PCS; principal; 2023-12-09)
PROC: 5A12012 Performance of Cardiac Output, Single, Manual (ICD-10-PCS; 2023-12-09)
PROC: 0BH17EZ Insertion of Endotracheal Airway into Trachea, Via Natural or Artificial Opening (ICD-10-PCS; 2023-12-09)
PROC: 3E033XZ Introduction of Vasopressor into Peripheral Vein, Percutaneous Approach (ICD-10-PCS; 2023-12-10)
PROC: 30283B1 Transfusion of Nonautologous 4-Factor Prothrombin Complex Concentrate into Vein, Percutaneous Approach (ICD-10-PCS; 2023-12-10)
PROC: 30233N1 Transfusion of Nonautologous Red Blood Cells into Peripheral Vein, Percutaneous Approach (ICD-10-PCS; 2023-12-10)
PROC: 30233R1 Transfusion of Nonautologous Platelets into Peripheral Vein, Percutaneous Approach (ICD-10-PCS; 2023-12-10)
PROC: 30233K1 Transfusion of Nonautologous Frozen Plasma into Peripheral Vein, Percutaneous Approach (ICD-10-PCS; 2023-12-10)
PROC: 06HY33Z Insertion of Infusion Device into Lower Vein, Percutaneous Approach (ICD-10-PCS; 2023-12-10)
DX: A41.89 Other specified sepsis (principal); I46.9 Cardiac arrest, cause unspecified; J96.01 Acute respiratory failure with hypoxia; R65.21 Severe sepsis with septic shock; N18.6 End stage renal disease; U07.1 COVID-19; J12.82 Pneumonia due to coronavirus disease 2019; J15.9 Unspecified bacterial pneumonia; J44.0 Chronic obstructive pulmonary disease with (acute) lower respiratory infection; E87.20 Acidosis, unspecified; I12.0 Hypertensive chronic kidney disease with stage 5 chronic kidney disease or end stage renal disease; K92.2 Gastrointestinal hemorrhage, unspecified; D62 Acute posthemorrhagic anemia; J98.11 Atelectasis; I95.3 Hypotension of hemodialysis; I27.20 Pulmonary hypertension, unspecified; E11.22 Type 2 diabetes mellitus with diabetic chronic kidney disease; D50.9 Iron deficiency anemia, unspecified; F32.A Depression, unspecified; Z99.2 Dependence on renal dialysis; Z95.3 Presence of xenogenic heart valve; Z95.828 Presence of other vascular implants and grafts; Z79.4 Long term (current) use of insulin; E86.1 Hypovolemia; E78.5 Hyperlipidemia, unspecified; I25.10 Atherosclerotic heart disease of native coronary artery without angina pectoris; K21.9 Gastro-esophageal reflux disease without esophagitis; M19.90 Unspecified osteoarthritis, unspecified site; R77.8 Other specified abnormalities of plasma proteins; H54.7 Unspecified visual loss; H91.90 Unspecified hearing loss, unspecified ear; Z79.01 Long term (current) use of anticoagulants; Z79.899 Other long term (current) drug therapy; Z87.891 Personal history of nicotine dependence; Z86.711 Personal history of pulmonary embolism; Z86.73 Personal history of transient ischemic attack (TIA), and cerebral infarction without residual deficits; Z95.1 Presence of aortocoronary bypass graft; Z98.84 Bariatric surgery status
CPT/HCPCS: 36415; 36600; 71045; 71046; 80048; 80053; 82272; 82533; 82805; 83036; 83605; 83735; 84100; 84145; 84484; 85025; 85384; 85610; 85730; 86140; 86850; 86900; 86901; 86920; 87040; 87636; 93005; 94002; 96361; 96365; 96367; 99285